=== PATIENT | female | born 1985 | race Caucasian/White ===

== ENCOUNTER 2020-01-31 16:44 | Inpatient (IN) | payer OTHER, SELFPAY ==
[2020-01-31 18:34] VITALS: BP 157/88; PULSE 110; RESP 17; TEMP 37.4; O2SAT 97; BMI 27.3
--- NOTE | 2020-01-31 18:39 | PC.NURSE ---
Pt states she has HX of hypertension and was taking lisinopril but had kidney problems and the med was discontinued. Her BP is slightly elevated on arrival.
--- NOTE | 2020-01-31 18:51 | ED_ITS ---
HPI - Female Genitourinary General Chief complaint: Urogenital-Female Stated complaint: fever Time Seen by Provider: 01/31/20 18:51 Source: patient Mode of arrival: ambulatory Limitations: no limitations History of Present Illness HPI Narrative: 35-year-old female with past medical history of sepsis, pyelonephritis, presents with 3 days of UTI symptoms, bilateral lower back pain, fevers, and chills. She does not described suprapubic pain, chest pain or pressure, palpitations, shortness breath, abdominal distention, edema, lightheadedness or weakness. MD elicited complaint: dysuria, UTI , back pain and flank pain Pertinent past history: recurrent UTIs and pyelonephritis Onset (ago): day(s) ( Three) Location of symptoms: LLQ, RLQ, low back and flank Severity: similar to previous episodes Severity scale (1-10): 10 Quality of pain: dull, burning and aching Consistency: constant Vaginal discharge: none Vaginal bleeding: none Urinary symptoms: Dysuria, Foul Smelling Urine, Difficulty Urinating and Flank Pain Exacerbating factors: urination and movement Relieving factors: none Associated symptoms: abdominal pain, loss of appetite, fever, chills and nausea Treatment prior to arrival: acetaminophen Sexual activity: No Patient : No Related Data Home Medications Medication Instructions Recorded Confirmed sertraline 100 tab DAILY 01/31/20 01/31/20 trazodone 25 mg PO BEDTIME 01/31/20 01/31/20 Allergies Allergy/AdvReac Type Severity Reaction Status Date / Time No Known Allergies Allergy Verified 01/31/20 19:48 Review of Systems Review of Systems: Constitutional: positive Fever, positive Chills ENT/Mouth: No sore throat Eyes: No Eye Pain, No Swelling, No Redness Cardiovascular: No Chest Pain, No SOB Respiratory: No Cough, No Sputum, No Wheezing Gastrointestinal: positive Nausea, no Vomiting, No Diarrhea, positive abdominal pain Genitourinary: positive Dysuria, positive urinary frequency, positive Hematuria, positive Flank Pain, positive hesitancy Musculoskeletal: No joint pain, No Myalgias Skin: No Skin Lesions, No rash Neuro: No Weakness, No Numbness, No Headache Psych: No Anxiety/Panic, No Depression Heme/Lymph: No Bruising, No Lymphadenopathy Endocrine: No Polyuria, No Polydipsia Yes all other systems are reviewed and are negative PMFSH Past Medical History Attestation statement: The following information was validated with the patient. Medical History HTN (hypertension) Spina bifida Social History Social History Alcohol intake: never Smoking Status: Current every day smoker Smoked in Last 30 Days: No Use of substances other than those prescribed or required for medical reasons: No Advance Directives: No Advance Directives Information Provided: Yes Physical Exam Vital Signs: Vital Signs: Last Vital Signs Temp 102.7 F H 01/31/20 23:56 Pulse 114 H 01/31/20 23:56 Resp 23 H 01/31/20 23:56 BP 113/62 01/31/20 23:56 Pulse Ox 96 01/31/20 23:56 Body Mass Index 27.3 Appearance: Alert. Oriented X3. moderate distress. febrile Head: Normal external exam. Normocephalic. Atraumatic. Eyes: PERRLA. EOMI. Conjunctiva and sclera normal. Eyelids normal. ENT: TM's Normal. Pharynx normal. Uvula midline. dry mucous membranes. No trismus noted. No drooling noted. No muffled voice noted. Neck: Normal inspection. Neck supple. No adenopathy. no meningeal signs CVS: tachycardic. Heart sound normal. No murmurs noted. Pulses equal to all extremities. Respiratory: No respiratory distress. Painless inspiration. Breath sounds normal. No wheezes/rales/rhonchi noted. Chest nontender. No accessory muscle usage noted or decreased air movement noted. Abdomen: Soft and diffusely tender, CVA tenderness bilaterally. Bowel sounds normal in all 4 quadrants. No distention noted. No organomegaly noted. No visible injury noted. Back: CVA tenderness bilaterally. Full range of motion noted. Skin: Skin warm and mild diaphoresis. Normal skin color. Normal skin turgor. No rashes/lesions/lacerations noted. Extremities: No lower extremity edema. Extremities exhibit normal range of motion. Extremities nontender. Neuro: cranial nerves 2-12 intact, no focal neural deficits, strength 5/5 to all extremities, No motor deficit. No sensory deficit. Reflexes normal. Course Course Course Narrative: 35-year-old female with past medical history of sepsis with pyelonephritis presents with urinary symptoms and lower back pain consistent with prior admission for pyelonephritis. At this time patient fits sepsis protocol, we will order fluid resuscitation at 30 mg/kg, CBC, Chem 7, lactic and cultures. Order for ceftriaxone, and COVID-19 testing. Pain management with morphine. urinalysis positive for UTI, CT scan of abdomen negative for pyelonephritis, shows decreased liver attenuation suggesting hepatic steatosis, and do few sleep thickened bladder wall consistent with cystitis. EKG is sinus tach. Discussion with hospitalist at 9:45 p.m., plan of care is to admit for UTI sepsis. Request by hospitalist add Maureen stock. RN updated this NDT INSPECTOR at midnight that patient has elevated temperature, order for Tylenol, 3rd L of normal saline and was given morphine approximately 30 minutes prior to this for pain management. MDM - Female Genitourinary MDM Narrative Medical decision making narrative: Pyelonephritis, hydronephrosis, sepsis, renal colic Differential Diagnosis Differential diagnosis: Likely urinary tract infection, ovarian cyst, ruptured ovarian cyst and cystitis Medical Records Attestation: I reviewed the patient's medical records. Lab Data Attestation: I reviewed the patient's lab results. Result diagrams: 01/31/20 19:12 01/31/20 19:12 Labs: Lab Results 01/31/20 01/31/20 01/31/20 Range/Units 19:06 19:12 19:12 WBC 13.6 H (4.8-10.8) X10*3/uL RBC 3.68 L (4.20-5.50) X10*6/uL Hgb 13.7 (12.0-16.0) g/dl Hct 38.7 (37-47) % MCV 105.2 H (80-98) fL MCH 37.2 H (27.0-33.0) pg MCHC 35.4 H (31.0-35.0) g/dl RDW 11.3 (11.0-16.0) % Plt Count 165 (160-400) X10*3/uL MPV 9.6 (9.4-12.3) fL Immature Gran % (Auto) 0.4 (0.0-0.4) % Neut % (Auto) 81.8 H (45-73) % Lymph % (Auto) 3.7 L (20-40) % [place] % (Auto) 13.9 H (2-11) % Eos % (Auto) 0.1 (0-4) % Baso % (Auto) 0.1 (0-2) % Lymph # (Auto) 0.5 L (1.2-4.9) X10*3/uL [place] # (Auto) 1.9 H (0.1-1.2) X10*3/uL Eos # (Auto) 0.0 (0.0-0.4) X10*3/uL Baso # (Auto) 0.0 (0.0-0.2) X10*3/uL Abs Immat Gran (auto) 0.06 H (0.00-0.03) X10*3/uL Absolute Neuts (auto) 11.1 H (2.0-8.3) X10*3/uL Absolute Nucleated RBC 0.000 (0.0-0.012) X10*3/uL Nucleated RBC % (auto) 0.0 (0.0-0.2) /100WBC Smear Tech's Comments VERIFIED PT 14.0 H (10.8-13.0) SEC INR 1.2 H (0.9-1.1) APTT 35.4 (24.1-38.0) SEC Sodium (135-145) mmol/L Potassium (3.3-5.1) mmol/l Chloride (96-108) mmol/L Carbon Dioxide (22-29) mmol/L Anion Gap (12-20) BUN (9-16) mg/dL Creatinine (0.5-1.4) mg/dL Estim Creat Clear Calc Estimated GFR Random Glucose (60-115) mg/dL Lactic Acid (0.5-2.0) mmol/L Calcium (8.4-10.2) mg/dL Magnesium (1.6-2.6) mg/dL Total Bilirubin (0.0-1.0) mg/dL Direct Bilirubin (0.0-0.5) mg/dL AST (5-31) U/L ALT (0-31) U/L Alkaline Phosphatase (39-117) U/L Total Protein (6.5-8.0) g/dL Albumin (3.5-5.0) g/dL Lipase (8-78) U/L Urine Color YELLOW Urine Appearance HAZY Urine pH 5.5 (5.0-8.0) Ur Specific [place] 1.020 (1.005-1.025) Urine Protein 2+ H (NEG-TRACE) MG/DL Urine Glucose (UA) NEG (NEG) MG/DL Urine Ketones 5 (NEG) MG/DL Urine Blood 1+ H (NEG) Urine Nitrite POS H (NEG) Ur Leukocyte Esterase 1+ H (NEG) Urine RBC 1-4 (0) /HPF Urine WBC 76-150 H (0-4) /HPF Ur Squamous Epith Cells 1+ /LPF Urine Bacteria 4+ /LPF Urine Test NEGATIVE (NEGATIVE) Coronavirus (PCR) (Negative) Influenza Type A (PCR) (Negative) Influenza Type B (PCR) (Negative) RSV RNA Qual (PCR) (Negative) 01/31/20 01/31/20 01/31/20 Range/Units 19:12 19:12 19:12 WBC (4.8-10.8) X10*3/uL RBC (4.20-5.50) X10*6/uL Hgb (12.0-16.0) g/dl Hct (37-47) % MCV (80-98) fL MCH (27.0-33.0) pg MCHC (31.0-35.0) g/dl RDW (11.0-16.0) % Plt Count (160-400) X10*3/uL MPV (9.4-12.3) fL Immature Gran % (Auto) (0.0-0.4) % Neut % (Auto) (45-73) % Lymph % (Auto) (20-40) % [place] % (Auto) (2-11) % Eos % (Auto) (0-4) % Baso % (Auto) (0-2) % Lymph # (Auto) (1.2-4.9) X10*3/uL [place] # (Auto) (0.1-1.2) X10*3/uL Eos # (Auto) (0.0-0.4) X10*3/uL Baso # (Auto) (0.0-0.2) X10*3/uL Abs Immat Gran (auto) (0.00-0.03) X10*3/uL Absolute Neuts (auto) (2.0-8.3) X10*3/uL Absolute Nucleated RBC (0.0-0.012) X10*3/uL Nucleated RBC % (auto) (0.0-0.2) /100WBC Smear Tech's Comments PT (10.8-13.0) SEC INR (0.9-1.1) APTT (24.1-38.0) SEC Sodium 131 L (135-145) mmol/L Potassium 3.3 (3.3-5.1) mmol/l Chloride 93 L (96-108) mmol/L Carbon Dioxide 23 (22-29) mmol/L Anion Gap 18 (12-20) BUN 8 L (9-16) mg/dL Creatinine 0.65 (0.5-1.4) mg/dL Estim Creat Clear Calc 98.5 Estimated GFR > 60 Random Glucose 118 H (60-115) mg/dL Lactic Acid 0.9 (0.5-2.0) mmol/L Calcium 8.0 L (8.4-10.2) mg/dL Magnesium 1.6 (1.6-2.6) mg/dL Total Bilirubin 0.6 (0.0-1.0) mg/dL Direct Bilirubin 0.3 (0.0-0.5) mg/dL AST 42 H (5-31) U/L ALT 27 (0-31) U/L Alkaline Phosphatase 83 (39-117) U/L Total Protein 7.1 (6.5-8.0) g/dL Albumin 3.9 (3.5-5.0) g/dL Lipase 29 (8-78) U/L Urine Color Urine Appearance Urine pH (5.0-8.0) Ur Specific [place] (1.005-1.025) Urine Protein (NEG-TRACE) MG/DL Urine Glucose (UA) (NEG) MG/DL Urine Ketones (NEG) MG/DL Urine Blood (NEG) Urine Nitrite (NEG) Ur Leukocyte Esterase (NEG) Urine RBC (0) /HPF Urine WBC (0-4) /HPF Ur Squamous Epith Cells /LPF Urine Bacteria /LPF Urine Test (NEGATIVE) Coronavirus (PCR) (Negative) Influenza Type A (PCR) (Negative) Influenza Type B (PCR) (Negative) RSV RNA Qual (PCR) (Negative) 01/31/20 Range/Units 20:52 WBC (4.8-10.8) X10*3/uL RBC (4.20-5.50) X10*6/uL Hgb (12.0-16.0) g/dl Hct (37-47) % MCV (80-98) fL MCH (27.0-33.0) pg MCHC (31.0-35.0) g/dl RDW (11.0-16.0) % Plt Count (160-400) X10*3/uL MPV (9.4-12.3) fL Immature Gran % (Auto) (0.0-0.4) % Neut % (Auto) (45-73) % Lymph % (Auto) (20-40) % [place] % (Auto) (2-11) % Eos % (Auto) (0-4) % Baso % (Auto) (0-2) % Lymph # (Auto) (1.2-4.9) X10*3/uL [place] # (Auto) (0.1-1.2) X10*3/uL Eos # (Auto) (0.0-0.4) X10*3/uL Baso # (Auto) (0.0-0.2) X10*3/uL Abs Immat Gran (auto) (0.00-0.03) X10*3/uL Absolute Neuts (auto) (2.0-8.3) X10*3/uL Absolute Nucleated RBC (0.0-0.012) X10*3/uL Nucleated RBC % (auto) (0.0-0.2) /100WBC Smear Tech's Comments PT (10.8-13.0) SEC INR (0.9-1.1) APTT (24.1-38.0) SEC Sodium (135-145) mmol/L Potassium (3.3-5.1) mmol/l Chloride (96-108) mmol/L Carbon Dioxide (22-29) mmol/L Anion Gap (12-20) BUN (9-16) mg/dL Creatinine (0.5-1.4) mg/dL Estim Creat Clear Calc Estimated GFR Random Glucose (60-115) mg/dL Lactic Acid (0.5-2.0) mmol/L Calcium (8.4-10.2) mg/dL Magnesium (1.6-2.6) mg/dL Total Bilirubin (0.0-1.0) mg/dL Direct Bilirubin (0.0-0.5) mg/dL AST (5-31) U/L ALT (0-31) U/L Alkaline Phosphatase (39-117) U/L Total Protein (6.5-8.0) g/dL Albumin (3.5-5.0) g/dL Lipase (8-78) U/L Urine Color Urine Appearance Urine pH (5.0-8.0) Ur Specific [place] (1.005-1.025) Urine Protein (NEG-TRACE) MG/DL Urine Glucose (UA) (NEG) MG/DL Urine Ketones (NEG) MG/DL Urine Blood (NEG) Urine Nitrite (NEG) Ur Leukocyte Esterase (NEG) Urine RBC (0) /HPF Urine WBC (0-4) /HPF Ur Squamous Epith Cells /LPF Urine Bacteria /LPF Urine Test (NEGATIVE) Coronavirus (PCR) NEGATIVE (Negative) Influenza Type A (PCR) NEGATIVE (Negative) Influenza Type B (PCR) NEGATIVE (Negative) RSV RNA Qual (PCR) NEGATIVE (Negative) Imaging Data CT scan - abdomen: Attestation: I personally reviewed and interpreted this imaging study as follows: Radiologist's impression: EXAMINATION: CT ABDOMEN AND PELVIS WITHOUT CONTRAST CLINICAL INFORMATION: 35-year-old female with flank pain COMPARISON: CT abdomen pelvis 10/03/2019 TECHNIQUE: Multidetector volumetric imaging was performed from the superior aspect of the liver through the pubic symphysis. Sagittal and coronal reformatted images were obtained on the technologist's workstation. This CT examination was performed using dose optimization techniques as appropriate, variously including the following: *Automated exposure control *Adjustment of mA and/or kV according to patient size (this includes techniques or standardized protocols for targeted exams where dose is matched to indication/reason for exam; i.e. extremities or head) *Use of iterative reconstruction technique DLP: 432 mGy-cm FINDINGS: Visualized lung bases are well aerated. The liver is normal in size but demonstrates diffusely decreased attenuation. The gallbladder is normal in appearance. The pancreas is normal in appearance. 2.5 cm cyst within the posterior spleen is stable. The adrenal glands are unremarkable. Symmetrically sized kidneys. No renal calculi or hydronephrosis bilaterally. Normal caliber loops of small and large bowel. The appendix is not clearly visualized, however, there is no focal inflammatory stranding within the right lower quadrant. Nonaneurysmal abdominal aorta. The bladder is relatively decompressed and again demonstrated diffusely thick-walled. Unremarkable CT appearance of the uterus. No gross free pelvic fluid. No inguinal lymphadenopathy. No acute osseous abnormality. Congenital abnormality of the sacrum. CT/CT abdomen pelvis wo con IMPRESSION: 1. No renal calculi or hydronephrosis bilaterally. 2. Diffusely decreased liver attenuation suggesting hepatic steatosis. Correlation with liver enzymes recommended. 3. Similar appearance of diffusely thick-walled bladder. Cystitis is within the differential. ECG Data Attestation: I personally reviewed and interpreted this ECG as follows: ECG interpretation date: 01/31/20 ECG interpretation time: 19:12 Interpretation: Vent. Rate : 104 BPM Atrial Rate : 104 BPM P-R Int : 140 ms QRS Dur : 076 ms QT Int : 360 ms P-R-T Axes : 002 068 -02 degrees QTc Int : 473 ms Sinus tachycardia Nonspecific T wave abnormality Abnormal ECG When compared with ECG of 03-OCT-2019 17:32, Nonspecific T wave abnormality now evident in Inferior leads T wave inversion now evident in Anterior leads Critical Care Time Critical Care Time Critical Care Time: Yes Total Critical Care Time: 65 Attestation: I have personally provided critical care time exclusive of time spent on separately billable procedures. Time includes review of laboratory data, radiology results, discussion with consultants, and monitoring for potential decompensation. Interventions were performed as documented. Discharge Plan Discharge Clinical Impression: Urinary tract infection, Sepsis Patient Disposition: Admitted As Inpatient Prescriptions: No Action trazodone 50 mg tablet 25 mg PO BEDTIME RF: 0 sertraline 100 mg tablet 100 tab DAILY RF: 0
[2020-01-31 19:23] LABS: Basophils Percent Auto 0.1 % (0-2); Eosinophils Percent Auto 0.1 % (0-4); Hematocrit 38.7 % (37-47); Hemoglobin 13.7 g/dl (12.0-16.0); Imm Gran Abs Auto 0.06 X10*3/uL (0.00-0.03); Imm Gran Pct Auto 0.4 % (0.0-0.4); Lymphocytes Absolute Auto 0.5 X10*3/uL (1.2-4.9); Lymphocytes Percent Auto 3.7 % (20-40); MANUAL DIFF FLAG SCAN; Mean Corpuscular HGB Conc 35.4 g/dl (31.0-35.0); Mean Corpuscular Hemoglobin 37.2 pg (27.0-33.0); Mean Corpuscular Volume 105.2 fL (80-98); Mean Platelet Volume 9.6 fL (9.4-12.3); Monocytes Absolute Auto 1.9 X10*3/uL (0.1-1.2); Monocytes Percent Auto 13.9 % (2-11); Neutrophils Absolute Auto 11.1 X10*3/uL (2.0-8.3); Neutrophils Percent Auto 81.8 % (45-73); Platelet Count 165 X10*3/uL (160-400); Red Blood Count 3.68 X10*6/uL (4.20-5.50); Red Cell Distribution Width 11.3 % (11.0-16.0); SCAN SMEAR FLAG 1; White Blood Count 13.6 X10*3/uL (4.8-10.8)
[2020-01-31 19:26] LABS: Glucose Urine UA NEG (NEG); Leukocyte Esterase Urine 1+ (NEG); Nitrite Urine POS (NEG); PH 5.5 (5.0-8.0); Urine Blood 1+ (NEG); Urine Ketones 5 MG/DL (NEG); Urine Protein 2+ MG/DL (NEG-TRACE)
[2020-01-31 19:29] LABS: Appearance Urine HAZY; Color Urine YELLOW; UPreg QC Valid YES; Urine Pregnancy NEGATIVE (NEGATIVE)
[2020-01-31 19:31] LABS: INTERNATIONAL NORM RATIO 1.2 (0.9-1.1)
[2020-01-31 19:33] LABS: Bacteria Urine 4+ /LPF; Squamous Epithelial Cell Urine 1+ /LPF
[2020-01-31 19:34] LABS: Partial Thromboplastin Time 35.4 SEC (24.1-38.0)
[2020-01-31] MEDS: 0.9 % Sodium Chloride 1,000 ML 999 ML IVCONT ×2 (19:35)
[2020-01-31] MEDS: ondansetron HCL 4 MG/2 ML VIAL IVPUSH (19:35)
[2020-01-31] MEDS: Morphine Sulfate 4 MG/ML CARTRIDGE IVPUSH ×2 (19:35→22:00)
[2020-01-31 19:39] LABS: Lactic Acid 0.9 mmol/L (0.5-2.0)
[2020-01-31] MEDS: cefTRIAXone sodium 1 GM in 0.9 % Sodium Chloride 50 ML IV (19:42)
[2020-01-31 19:43] LABS: SLIDE REVIEW VERIFIED
[2020-01-31 19:44] LABS: Alanine Aminotransferase 27 U/L (0-31); Albumin Level 3.9 g/dL (3.5-5.0); Alkaline Phosphatase 83 U/L (39-117); Anion Gap 18 (12-20); Aspartate Amino Transferase 42 U/L (5-31); Bilirubin Direct 0.3 mg/dL (0.0-0.5); Bilirubin Total 0.6 mg/dL (0.0-1.0); Blood Urea Nitrogen 8 mg/dL (9-16); Carbon Dioxide 23 mmol/L (22-29); Chloride 93 mmol/L (96-108); Creatinine Clr Calc Pharmacy 98.5; Estimated Glomerular Filt Rate > 60; Glucose Random 118 mg/dL (60-115); Lipase 29 U/L (8-78); Magnesium 1.6 mg/dL (1.6-2.6); Potassium 3.3 mmol/l (3.3-5.1); Sodium 131 mmol/L (135-145); Total Protein 7.1 g/dL (6.5-8.0)
[2020-01-31 19:45] VITALS: BP 129/78; PULSE 99; RESP 18; TEMP 37.7; O2SAT 98
[2020-01-31 20:52] VITALS: BP 148/88; PULSE 94; RESP 23; TEMP 36.9; O2SAT 98
[2020-01-31] MEDS: Piperacillin Sodium/Tazobactam 3.375 GM in 0.9 % Sodium Chloride 50 ML IV (21:30)
[2020-01-31 21:35] LABS: Influenza A PCR NEGATIVE (Negative); Influenza B PCR NEGATIVE (Negative); Resp Syncy Virus RNA Qual PCR NEGATIVE (Negative); SARS COV2 PCR INHOUSE NEGATIVE (Negative)
[2020-01-31 22:00] VITALS: BP 143/87; PULSE 108; RESP 33; TEMP 37.7; O2SAT 96
[2020-01-31 23:56] VITALS: BP 113/62; PULSE 114; RESP 23; TEMP 39.3; O2SAT 96
[2020-02-01] VITALS (12 sets, daily range): BP systolic 107–137; BP diastolic 57–84; PULSE 64–109; RESP 14–29; TEMP 36.1–39.4; O2SAT 95–99
[2020-02-01] MEDS: Acetaminophen 325 MG TABLET 975 MG PO (00:28)
[2020-02-01] MEDS: 0.9 % Sodium Chloride 1,000 ML 999 ML IVCONT (00:29)
--- NOTE | 2020-02-01 04:01 | PC.NURSE ---
Pt has hx of Spina bifida. Pt states that she does self-catheterization. Self-catheterizaiton kit given at this time.
--- NOTE | 2020-02-01 04:03 | MHC.PIE ---
P: Febrile T=102.7 orally at midnight. I: ARUNA Najera made aware. 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 E: Temperature slowly coming down after med. At 0200, T=101.4, and at 0400 T=98.4 orally, Will continue to monitor.
--- NOTE | 2020-02-01 07:48 | PM.IMHP ---
History of Present Illness Date of Service: 02/01/20 Chief Complaint: R Flank This is a 34-year-old female with a history of spina bifida, frequent urinary tract infections, urinary retention, anxiety/depression who presents to the hospital with complaints of right flank pain and dysuria for the last 3-4 days. She also reports fevers and chills. She reports she tried to take some [id number] Tylenol at home but she remained feverish and her pain worsened so she presented to the emergency room. She denies any respiratory symptoms such as cough or shortness of breath. She denies any sick contacts, particularly anybody with COVID-19. She does endorse frequent urinary tract infections with her last hospitalization over the summer at [facility]. In the emergency room, patient was noted to be septic with fevers, tachycardia, tachypnea and leukocytosis. Her UA was consistent with a UTI. CT of the abdomen and pelvis did not show any renal stones but did show evidence of a thick wall bladder, consistent with possible cystitis. She was treated with IV fluids and IV antibiotics as well as antiemetics and pain medicine. Her symptoms improved but she remained persistently cardiac and febrile and as such she will be admitted for sepsis secondary to urinary tract infection/ Pyelo. Review of Systems Review of Systems: General - +fevers/chills/malaise HEENT - Prep denies blurred vision, denies headache, denies sore throat Cardiovascular - denies chest pain or palpitations, denies edema Respiratory - denies shortness of breath, coughing, wheezing Gastrointestinal - denies abdominal pain, nausea, vomiting, diarrhea - R Flank pain, +dysuria/urgency Musculoskeletal - denies back pain, denies hip pain, denies knee pain, denies shoulder pain Neurological - denies any focal weakness or numbness Skin, denies any bruising or redness Psychiatric - denies any suicidal ideation, hallucinations, homicidal ideation Endocrinology - denies intolerance to hot / cold temperatures [facility] Medical History (Updated 02/01/20 @ 08:02 by Catarino Mcghee MD) Anxiety and depression Spina bifida Urinary retention Pertinent family history: She denies any significant family history Surgical History (Updated 02/01/20 @ 08:04 by Catarino Mcghee MD) Previous back surgery Social History Alcohol intake: never Smoking Status: Current every day smoker Smoked in Last 30 Days: No Use of substances other than those prescribed or required for medical reasons: No Advance Directives: No Advance Directives Information Provided: Yes Meds Allergies Allergy/AdvReac Type Severity Reaction Status Date / Time No Known Allergies Allergy Verified 01/31/20 19:48 Home Medications Medication Instructions Recorded Confirmed Type sertraline 100 tab DAILY 01/31/20 01/31/20 History trazodone 25 mg PO BEDTIME 01/31/20 01/31/20 History Physical Exam Vital Signs and Narrative: Vital Signs: Last Vital Signs Temp 103 F H 02/01/20 07:44 Pulse 108 H 02/01/20 07:44 Resp 16 02/01/20 07:44 BP 129/74 02/01/20 07:44 Pulse Ox 98 02/01/20 06:00 Body Mass Index 27.3 Constitutional - Awake and Alert, No apparent distress Eyes - PERRLA, EOMI Cardiovascular - S1S2, RRR, No edema Respiratory - Normal lung expansion, Normal respiratory effort, No respiratory distress, CTA bilaterally Gastrointestinal - NT / ND; +BS; No rebound or guarding - bilateral CVA tenderness R>L Extremities - no calf tenderness bilaterally, no welling Musculoskeletal - Normal inspection, normal ROM Skin - Warm/Dry Neurological - Alert & oriented x3, No focal deficit Psychological - Appropriate affect Results Labs CBC and Chem 7: 01/31/20 19:12 01/31/20 19:12 Labs: Laboratory Results - last 24 hr 01/31/20 01/31/20 01/31/20 19:06 19:12 19:12 MCV 105.2 H MCH 37.2 H MCHC 35.4 H RDW 11.3 Plt Count 165 MPV 9.6 Immature Gran % (Auto) 0.4 Neut % (Auto) 81.8 H Lymph % (Auto) 3.7 L [place] % (Auto) 13.9 H Eos % (Auto) 0.1 Baso % (Auto) 0.1 Lymph # (Auto) 0.5 L [place] # (Auto) 1.9 H Eos # (Auto) 0.0 Baso # (Auto) 0.0 Abs Immat Gran (auto) 0.06 H Absolute Neuts (auto) 11.1 H Absolute Nucleated RBC 0.000 Nucleated RBC % (auto) 0.0 Smear Tech's Comments VERIFIED PT 14.0 H INR 1.2 H APTT 35.4 Anion Gap Estim Creat Clear Calc Estimated GFR Random Glucose Lactic Acid Calcium Magnesium Total Bilirubin Direct Bilirubin AST ALT Alkaline Phosphatase Total Protein Albumin Lipase Urine Color YELLOW Urine Appearance HAZY Urine pH 5.5 Ur Specific [place] 1.020 Urine Protein 2+ H Urine Glucose (UA) NEG Urine Ketones 5 Urine Blood 1+ H Urine Nitrite POS H Ur Leukocyte Esterase 1+ H Urine RBC 1-4 Urine WBC 76-150 H Ur Squamous Epith Cells 1+ Urine Bacteria 4+ Urine Test NEGATIVE Coronavirus (PCR) Influenza Type A (PCR) Influenza Type B (PCR) RSV RNA Qual (PCR) 01/31/20 01/31/20 01/31/20 19:12 19:12 19:12 MCV MCH MCHC RDW Plt Count MPV Immature Gran % (Auto) Neut % (Auto) Lymph % (Auto) [place] % (Auto) Eos % (Auto) Baso % (Auto) Lymph # (Auto) [place] # (Auto) Eos # (Auto) Baso # (Auto) Abs Immat Gran (auto) Absolute Neuts (auto) Absolute Nucleated RBC Nucleated RBC % (auto) Smear Tech's Comments PT INR APTT Anion Gap 18 Estim Creat Clear Calc 98.5 Estimated GFR > 60 Random Glucose 118 H Lactic Acid 0.9 Calcium 8.0 L Magnesium 1.6 Total Bilirubin 0.6 Direct Bilirubin 0.3 AST 42 H ALT 27 Alkaline Phosphatase 83 Total Protein 7.1 Albumin 3.9 Lipase 29 Urine Color Urine Appearance Urine pH Ur Specific [place] Urine Protein Urine Glucose (UA) Urine Ketones Urine Blood Urine Nitrite Ur Leukocyte Esterase Urine RBC Urine WBC Ur Squamous Epith Cells Urine Bacteria Urine Test Coronavirus (PCR) Influenza Type A (PCR) Influenza Type B (PCR) RSV RNA Qual (PCR) 01/31/20 20:52 MCV MCH MCHC RDW Plt Count MPV Immature Gran % (Auto) Neut % (Auto) Lymph % (Auto) [place] % (Auto) Eos % (Auto) Baso % (Auto) Lymph # (Auto) [place] # (Auto) Eos # (Auto) Baso # (Auto) Abs Immat Gran (auto) Absolute Neuts (auto) Absolute Nucleated RBC Nucleated RBC % (auto) Smear Tech's Comments PT INR APTT Anion Gap Estim Creat Clear Calc Estimated GFR Random Glucose Lactic Acid Calcium Magnesium Total Bilirubin Direct Bilirubin AST ALT Alkaline Phosphatase Total Protein Albumin Lipase Urine Color Urine Appearance Urine pH Ur Specific [place] Urine Protein Urine Glucose (UA) Urine Ketones Urine Blood Urine Nitrite Ur Leukocyte Esterase Urine RBC Urine WBC Ur Squamous Epith Cells Urine Bacteria Urine Test Coronavirus (PCR) NEGATIVE Influenza Type A (PCR) NEGATIVE Influenza Type B (PCR) NEGATIVE RSV RNA Qual (PCR) NEGATIVE Imaging Radiologist's Impressions: Impressions Abdomen/Pelvis CT 01/31/20 18:52 IMPRESSION: 1. No renal calculi or hydronephrosis bilaterally. 2. Diffusely decreased liver attenuation suggesting hepatic steatosis. Correlation with liver enzymes recommended. 3. Similar appearance of diffusely thick-walled bladder. Cystitis is within the differential. Assessment and Plan (1) Urinary tract infection: Qualifiers: Hematuria presence: with hematuria Urinary tract infection type: acute cystitis Qualified Code(s): N30.01 - Acute cystitis with hematuria Status: Acute (2) Sepsis: Qualifiers: Sepsis acute organ dysfunction status: unspecified Sepsis type: sepsis due to unspecified organism Qualified Code(s): A41.9 - Sepsis, unspecified organism Status: Acute this is a 35-year-old female with a history of frequent urinary tract infections, urinary retention, spinal bifida, anxiety /depression who presented hospital complaints of flank pain and fevers with associated urinary symptoms of due 3 to 4 days duration. Her workup in the emergency room is consistent with sepsis secondary to pyelonephritis 1. sepsis secondary to pyelonephritis /UTI No severe features IV ceftriaxone Follow-up blood and urine cultures IV fluids pain control 2. HypoNa mild, likely hypovoluemic IVF 3.Anxiety/depression Continue her home meds Full Code DVT pptx, low risk -- early ambulation/mechanical device
[2020-02-01] MEDS: Acetaminophen 325 MG TABLET 650 MG PO ×2 (08:00→19:25)
[2020-02-01] MEDS: Morphine Sulfate 4 MG/ML CARTRIDGE IVPUSH ×2 (08:05→14:44)
--- NOTE | 2020-02-01 08:08 | PC.NURSE ---
medicated as ordered for pain, drinking water, alert, aware of care plan
[2020-02-01] MEDS: Lactated Ringers 1,000 ML 100 ML IVCONT ×2 (08:28→20:25)
--- NOTE | 2020-02-01 09:33 | PC.NURSE ---
sleeping, nad, sr on monitor, called floor to give report
[2020-02-01] MEDS: Sertraline HCL 100 MG TABLET PO (11:31)
[2020-02-01] MEDS: 0.9 % Sodium Chloride Flush 3 ML SYRINGE IVFLUSH (11:31)
[2020-02-01] MEDS: ondansetron HCL 4 MG/2 ML VIAL IVPUSH (14:44)
[2020-02-01] MEDS: cefTRIAXone sodium 1 GM in 0.9 % Sodium Chloride 50 ML IV (19:16)
[2020-02-01] MEDS: traZODone HCL 25 MG HALFTAB PO (20:27)
[2020-02-02] VITALS (7 sets, daily range): BP systolic 109–140; BP diastolic 63–81; PULSE 62–81; RESP 16–18; TEMP 36.1–36.8; O2SAT 94–99
[2020-02-02] MEDS: Morphine Sulfate 4 MG/ML CARTRIDGE IVPUSH (00:15)
[2020-02-02] MEDS: 0.9 % Sodium Chloride Flush 3 ML SYRINGE IVFLUSH ×3 (07:07→20:49)
[2020-02-02 07:18] LABS: Basophils Percent Auto 0.2 % (0-2); Eosinophils Absolute Auto 0.1 X10*3/uL (0.0-0.4); Eosinophils Percent Auto 0.4 % (0-4); Hemoglobin 12.2 g/dl (12.0-16.0); Imm Gran Abs Auto 0.09 X10*3/uL (0.00-0.03); Imm Gran Pct Auto 0.7 % (0.0-0.4); Lymphocytes Absolute Auto 0.7 X10*3/uL (1.2-4.9); Lymphocytes Percent Auto 5.7 % (20-40); MANUAL DIFF FLAG SCAN; Mean Corpuscular HGB Conc 34.9 g/dl (31.0-35.0); Mean Corpuscular Hemoglobin 36.7 pg (27.0-33.0); Mean Corpuscular Volume 105.4 fL (80-98); Mean Platelet Volume 9.5 fL (9.4-12.3); Monocytes Absolute Auto 2.2 X10*3/uL (0.1-1.2); Monocytes Percent Auto 17.1 % (2-11); Neutrophils Absolute Auto 9.8 X10*3/uL (2.0-8.3); Neutrophils Percent Auto 75.9 % (45-73); Platelet Count 232 X10*3/uL (160-400); Red Blood Count 3.32 X10*6/uL (4.20-5.50); Red Cell Distribution Width 11.4 % (11.0-16.0); SCAN SMEAR FLAG 1; White Blood Count 12.8 X10*3/uL (4.8-10.8)
[2020-02-02 07:37] LABS: Anion Gap 11 (12-20); Carbon Dioxide 24 mmol/L (22-29); Chloride 99 mmol/L (96-108); Creatinine Clr Calc Pharmacy 128.1; Estimated Glomerular Filt Rate > 60; Glucose Random 95 mg/dL (60-115); Potassium 3.1 mmol/l (3.3-5.1); Sodium 131 mmol/L (135-145)
[2020-02-02 07:47] LABS: SLIDE REVIEW VERIFIED
[2020-02-02 08:02] LABS: Blood Urea Nitrogen 3 mg/dL (9-16); Calcium 7.9 mg/dL (8.4-10.2)
[2020-02-02] MEDS: Sertraline HCL 100 MG TABLET PO (08:40)
--- NOTE | 2020-02-02 09:39 | MHC.CM.PN ---
PATIENT LIVES WITH HER SPOUSE. SHE IS INDEPENDENT WITH ALL ADLS. NO DME OR VNA SERVICES. PATIENT IS EXPECTED TO RETURN HOME WITH NO SERVICES SHE EXPECTS THAT HER SPOUSE CAN PROVIDE TRANSPORT, AND IS AWARE THAT SHE CAN UTILIZE C SHUTTLE DURING THE WEEK. PATIENT WILL NEED A RETURN TO WORK NOTE.
--- NOTE | 2020-02-02 11:54 | P.PNIM_ITS ---
Subjective Subjective Date of Service: 02/02/20 Interval History: seen and examined feeling better today no flank pain, no abdominal pain reports diarrhea which she reports happens when shes on antibiotics ROS General - no fevers or chills Cardiovascular - no chest pain Respiratory - no shortness of breath or cough Abdominal- no abdominal pain, nausea, vomiting, +loose BM - flank pain resolved, dysuria resolved Physical Exam Vital Signs: Vital Signs: Last Vital Signs Temp 97.8 F 02/02/20 07:30 Pulse 62 02/02/20 07:30 Resp 16 02/02/20 07:30 BP 114/69 02/02/20 07:30 Pulse Ox 96 02/02/20 07:30 Body Mass Index 27.3 Constitutional - Awake and Alert, No apparent distress Eyes - PERRLA, EOMI Cardiovascular - S1S2, RRR, No edema Respiratory - Normal lung expansion, Normal respiratory effort, No respiratory distress, CTA bilaterally Gastrointestinal - NT / ND; +BS; No rebound or guarding - no cva tenderness b/l Extremities - no calf tenderness bilaterally, no welling Musculoskeletal - Normal inspection, normal ROM Skin - Warm/Dry Neurological - Alert & oriented x3, No focal deficit Psychological - Appropriate affect Objective Data Current Medications Generic Name Dose Route Start Last Admin Trade Name Freq PRN Reason Stop Dose Admin Acetaminophen 650 mg 02/01/20 10:48 02/01/20 19:25 Acetaminophen 325 Mg Tablet PO 650 mg Q6H PRN Administration Pain and Fever Ceftriaxone Sodium 1 gm/ 50 mls @ 100 mls/hr 02/01/20 19:00 02/01/20 20:25 Sodium Chloride IV Infused Q24H ARELY Infusion Morphine Sulfate 4 mg 02/01/20 14:21 02/02/20 00:15 Morphine Sulfate 4 Mg/Ml Cartridge IVPUSH 4 mg Q6H PRN Administration Pain, Severe (Pain Scale 7-10) Ondansetron HCl 4 mg 02/01/20 14:21 02/01/20 14:44 Ondansetron Hcl 4 Mg/2 Ml Vial IVPUSH 4 mg Q8H PRN Administration Nausea and Vomiting Sertraline HCl 100 mg 02/01/20 11:00 02/02/20 08:40 Sertraline Hcl 100 Mg Tablet PO 100 mg DAILY ARELY Administration Sodium Chloride 3 ml 02/01/20 10:48 02/02/20 07:07 0.9 % Sodium Chloride Flush 3 Ml Syringe IVFLUSH 3 ml QSHIFT ARELY Administration Trazodone HCl 25 mg 02/01/20 21:00 02/01/20 20:27 Trazodone Hcl 25 Mg Halftab PO 25 mg BEDTIME ARELY Administration Labs CBC & Chem 7: 02/02/20 06:45 02/02/20 06:45 Microbiology Microbiology Results: Microbiology 01/31/20 19:30 Urine Catheterized - Lambert Catheter Urine Culture - P reliminary Gram negative jenelle 01/31/20 19:44 Blood - Venous Blood Culture - Preliminary No growth after 24 hours. 01/31/20 19:12 Blood - Venous Blood Culture - Preliminary No growth after 24 hours. Assessment and Plan (1) Urinary tract infection: Status: Acute (2) Sepsis: Status: Acute Assessment and Plan: this is a 35-year-old female with a history of frequent urinary tract infections, urinary retention, spinal bifida, anxiety /depression who presented hospital complaints of flank pain and fevers with associated urinary symptoms of due 3 to 4 days duration. Her workup in the emergency room is consistent with sepsis secondary to pyelonephritis 1. Sepsis secondary to pyelonephritis /UTI sepsis improving blood cx negative at 24 hours urine growing gram negatives continue rocephin 2. HypoNa stable at 131 3. HypoK mild replete with PO 60meq 4. Urinary retention chronic, she reports self catherization home she needs to f/u with a urologist as outpatient may need chronic supression antibiotics given recurrent UTI 5.Anxiety/depression Continue her home meds Full Code DVT pptx, lovenox
[2020-02-02] MEDS: Potassium Chloride ER 20 MEQ TAB.ER.PRT 60 MEQ PO (12:22)
[2020-02-02] MEDS: Enoxaparin Sodium 40 MG/0.4 ML SYRINGE SUBCUT (12:22)
[2020-02-02] MEDS: Acetaminophen 325 MG TABLET 650 MG PO (18:03)
[2020-02-02] MEDS: cefTRIAXone sodium 1 GM in 0.9 % Sodium Chloride 50 ML IV (19:18)
[2020-02-02] MEDS: traZODone HCL 25 MG HALFTAB PO (20:48)
[2020-02-03] MEDS: Morphine Sulfate 4 MG/ML CARTRIDGE IVPUSH (01:44)
[2020-02-03 03:11] VITALS: BP 136/73; PULSE 75; RESP 16; TEMP 37.1; O2SAT 98
[2020-02-03 06:51] LABS: Hematocrit 35.6 % (37-47); Hemoglobin 12.2 g/dl (12.0-16.0); Mean Corpuscular HGB Conc 34.3 g/dl (31.0-35.0); Mean Corpuscular Hemoglobin 36.4 pg (27.0-33.0); Mean Corpuscular Volume 106.3 fL (80-98); Mean Platelet Volume 9.3 fL (9.4-12.3); Platelet Count 291 X10*3/uL (160-400); Red Blood Count 3.35 X10*6/uL (4.20-5.50); Red Cell Distribution Width 11.5 % (11.0-16.0); White Blood Count 11.4 X10*3/uL (4.8-10.8)
[2020-02-03 07:18] LABS: Anion Gap 13 (12-20); Blood Urea Nitrogen 3 mg/dL (9-16); Calcium 7.8 mg/dL (8.4-10.2); Carbon Dioxide 21 mmol/L (22-29); Chloride 100 mmol/L (96-108); Creatinine Clr Calc Pharmacy 139.2; Estimated Glomerular Filt Rate > 60; Glucose Random 92 mg/dL (60-115); Potassium 3.3 mmol/l (3.3-5.1); Sodium 131 mmol/L (135-145)
[2020-02-03 08:00] VITALS: BP 128/72; PULSE 86; RESP 16; TEMP 36.4; O2SAT 99
[2020-02-03] MEDS: 0.9 % Sodium Chloride Flush 3 ML SYRINGE IVFLUSH (08:21)
[2020-02-03] MEDS: Sertraline HCL 100 MG TABLET PO (08:21)
--- NOTE | 2020-02-03 09:42 | P.DS_ITS ---
DS: Providers Provider Date of admission: 02/01/20 07:48 Primary care physician: Di Martinez MD DS: Diagnosis Discharge Diagnosis (1) Urinary tract infection: Status: Acute (2) Sepsis: Status: Acute (3) Urinary retention: Status: Acute (4) Hyponatremia: Status: Acute DS: Medications Discharge Medications Home Medications: Home Medications Medication Instructions Recorded Confirmed trazodone 25 mg PO BEDTIME 01/31/20 01/31/20 Previous Rx's Medication Instructions Recorded cefuroxime axetil 500 mg PO Q12H 10 Days #20 tab 02/03/20 sertraline 100 mg PO DAILY #0 tab 02/03/20 DS: Summary Hospital Course Hospital Course: HPI: This is a 34-year-old female with a history of spina bifida, frequent urinary tract infections, urinary retention, anxiety/depression who presents to the hospital with complaints of right flank pain and dysuria for the last 3-4 days. She also reports fevers and chills. She reports she tried to take some [id number] Tylenol at home but she remained feverish and her pain worsened so she presented to the emergency room. She denies any respiratory symptoms such as cough or shortness of breath. She denies any sick contacts, particularly anybody with COVID-19. She does endorse frequent urinary tract infections with her last hospitalization over the summer at [facility]. In the emergency room, patient was noted to be septic with fevers, tac hycardia, tachypnea and leukocytosis. Her UA was consistent with a UTI. CT of the abdomen and pelvis did not show any renal stones but did show evidence of a thick wall bladder, consistent with possible cystitis. She was treated with IV fluids and IV antibiotics as well as antiemetics and pain medicine. Her symptoms improved but she remained persistently cardiac and febrile and as such she will be admitted for sepsis secondary to urinary tract infection/ Pyelo. Hospital Course: Patient presented with sepsis secondary to pyelonephritis. She was started on IV ceftriaxone and IV fluids. Her symptoms over the course of 48 hours improved. Her urine culture returned positive for E coli which was sensitive to ceftriaxone. She will be discharged home with oral cefuroxime 500 mg twice daily. Blood cultures are negative at the time of discharge. Due to her chronic urinary retention, she is advised to follow-up with her urologist for consideration of chronic suppressive antibiotics. Time Spent with Patient Time attestation: Total time spent providing and/or coordinating discharge services: Physical Exam Vital Signs: Vital Signs: Last Vital Signs Temp 97.5 F 02/03/20 08:00 Pulse 86 02/03/20 08:00 Resp 16 02/03/20 08:00 BP 128/72 02/03/20 08:00 Pulse Ox 99 02/03/20 08:00 Body Mass Index 27.3 General - no acute distress, appears comfortable Cardiovascular - regular rate and rhythm, S1-S2 Lungs - normal respiratory effort, clear to auscultation bilaterally, no wheezing Abdomen - soft, nontender, no rebound or guarding Extremities - no edema bilaterally Neuro - awake and alert, no focal deficits DS: Data Data Completed and Pending Labs on day of discharge: Laboratory Last Values WBC 11.4 X10*3/uL (4.8-10.8) H 02/03/20 06:07 RBC 3.35 X10*6/uL (4.20-5.50) L 02/03/20 06:07 Hgb 12.2 g/dl (12.0-16.0) 02/03/20 06:07 Hct 35.6 % (37-47) L 02/03/20 06:07 MCV 106.3 fL (80-98) H 02/03/20 06:07 MCH 36.4 pg (27.0-33.0) H 02/03/20 06:07 MCHC 34.3 g/dl (31.0-35.0) 02/03/20 06:07 RDW 11.5 % (11.0-16.0) 02/03/20 06:07 Plt Count 291 X10*3/uL (160-400) D 02/03/20 06:07 MPV 9.3 fL (9.4-12.3) L 02/03/20 06:07 Immature Gran % (Auto) 0.7 % (0.0-0.4) H 02/02/20 06:45 Neut % (Auto) 75.9 % (45-73) H 02/02/20 06:45 Lymph % (Auto) 5.7 % (20-40) L 02/02/20 06:45 [place] % (Auto) 17.1 % (2-11) H 02/02/20 06:45 Eos % (Auto) 0.4 % (0-4) 02/02/20 06:45 Baso % (Auto) 0.2 % (0-2) 02/02/20 06:45 Lymph # (Auto) 0.7 X10*3/uL (1.2-4.9) L 02/02/20 06:45 [place] # (Auto) 2.2 X10*3/uL (0.1-1.2) H 02/02/20 06:45 Eos # (Auto) 0.1 X10*3/uL (0.0-0.4) 02/02/20 06:45 Baso # (Auto) 0.0 X10*3/uL (0.0-0.2) 02/02/20 06:45 Abs Immat Gran (auto) 0.09 X10*3/uL (0.00-0.03) H 02/02/20 06:45 Absolute Neuts (auto) 9.8 X10*3/uL (2.0-8.3) H 02/02/20 06:45 Absolute Nucleated RBC 0.000 X10*3/uL (0.0-0.012) 02/03/20 06:07 Nucleated RBC % (auto) 0.0 /100WBC (0.0-0.2) 02/03/20 06:07 Smear Tech's Comments VERIFIED 02/02/20 06:45 PT 14.0 SEC (10.8-13.0) H 01/31/20 19:12 INR 1.2 (0.9-1.1) H 01/31/20 19:12 APTT 35.4 SEC (24.1-38.0) 01/31/20 19:12 Sodium 131 mmol/L (135-145) L 02/03/20 06:07 Potassium 3.3 mmol/l (3.3-5.1) 02/03/20 06:07 Chloride 100 mmol/L (96-108) 02/03/20 06:07 Carbon Dioxide 21 mmol/L (22-29) L 02/03/20 06:07 Anion Gap 13 (12-20) 02/03/20 06:07 BUN 3 mg/dL (9-16) L 02/03/20 06:07 Creatinine 0.46 mg/dL (0.5-1.4) L 02/03/20 06:07 Estim Creat Clear Calc 139.2 02/03/20 06:07 Estimated GFR > 60 02/03/20 06:07 Random Glucose 92 mg/dL (60-115) 02/03/20 06:07 Lactic Acid 0.9 mmol/L (0.5-2.0) 01/31/20 19:12 Calcium 7.8 mg/dL (8.4-10.2) L 02/03/20 06:07 Magnesium 1.6 mg/dL (1.6-2.6) 01/31/20 19:12 Total Bilirubin 0.6 mg/dL (0.0-1.0) 01/31/20 19:12 Direct Bilirubin 0.3 mg/dL (0.0-0.5) 01/31/20 19:12 AST 42 U/L (5-31) H 01/31/20 19:12 ALT 27 U/L (0-31) 01/31/20 19:12 Alkaline Phosphatase 83 U/L (39-117) 01/31/20 19:12 Total Protein 7.1 g/dL (6.5-8.0) 01/31/20 19:12 Albumin 3.9 g/dL (3.5-5.0) 01/31/20 19:12 Lipase 29 U/L (8-78) 01/31/20 19:12 Urine Color YELLOW 01/31/20 19:06 Urine Appearance HAZY 01/31/20 19:06 Urine pH 5.5 (5.0-8.0) 01/31/20 19:06 Ur Specific [place] 1.020 (1.005-1.025) 01/31/20 19:06 Urine Protein 2+ MG/DL (NEG-TRACE) H 01/31/20 19:06 Urine Glucose (UA) NEG MG/DL (NEG) 01/31/20 19:06 Urine Ketones 5 MG/DL (NEG) 01/31/20 19:06 Urine Blood 1+ (NEG) H 01/31/20 19:06 Urine Nitrite POS (NEG) H 01/31/20 19:06 Ur Leukocyte Esterase 1+ (NEG) H 01/31/20 19:06 Urine RBC 1-4 /HPF (0) 01/31/20 19:06 Urine WBC 76-150 /HPF (0-4) H 01/31/20 19:06 Ur Squamous Epith Cells 1+ /LPF 01/31/20 19:06 Urine Bacteria 4+ /LPF 01/31/20 19:06 Urine Test NEGATIVE (NEGATIVE) 01/31/20 19:06 Coronavirus (PCR) NEGATIVE (Negative) 01/31/20 20:52 Influenza Type A (PCR) NEGATIVE (Negative) 01/31/20 20:52 Influenza Type B (PCR) NEGATIVE (Negative) 01/31/20 20:52 RSV RNA Qual (PCR) NEGATIVE (Negative) 01/31/20 20:52 Preliminary micro results at discharge 01/31/20 19:44 Blood Culture - Preliminary Blood - Venous No growth after 48 hours. 01/31/20 19:12 Blood Culture - Preliminary Blood - Venous No growth after 48 hours. Discharge Plan Discharge Patient Disposition: Home, Self-Care Referrals: Di Martinez MD [Primary Care Provider] - Discharge Medications: New cefuroxime axetil 500 mg tablet 500 mg PO Q12H 10 Days Qty: 20 RF: 0 Continued trazodone 50 mg tablet 25 mg PO BEDTIME RF: 0 Changed sertraline 100 mg tablet 100 mg PO DAILY Qty: 0 RF: 0 Discharge Orders: Discharge Order (Routine); Ordered 02/03/20 Ordered By: Catarino Mcghee Diet: advance to usual diet Activity on Discharge: As tolerated Visit Report Forms: Patient Portal Discharge page Care Plan Goals: .care Health Concerns: Frequent UTI Urinary Retention Plan of Treatment: Frequent UTI - Finish course of antibiotics. 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
--- NOTE | 2020-02-03 10:24 | MHC.CM.PN ---
Met with patient. Expects D/C today. Pt happy to go home. will pick her up at 2pm.
--- NOTE | 2020-02-03 11:03 | MHC.CM.PN ---
Pt D/C home without services. Pt to call for transportation
[2020-02-03 11:37] VITALS: BP 120/67; PULSE 81; RESP 16; TEMP 36.1; O2SAT 98
== END 2020-02-03 14:36 | disposition home or self-care (01) | DRG 720 ==
LOC: HO.ED 02-01 00:46 → HO.S3 02-01 09:28
PROVIDERS: Nurse Practitioner Family; Admitting Provider Family Medicine; Emergency Provider Emergency Medicine; PCP Internal Medicine; Visit Provider Family Medicine
DX: A41.9 Sepsis, unspecified organism (principal); E87.1 Hypo-osmolality and hyponatremia; N12 Tubulo-interstitial nephritis, not specified as acute or chronic; B96.20 Unspecified Escherichia coli [E. coli] as the cause of diseases classified elsewhere; R31.9 Hematuria, unspecified; F32.9 Major depressive disorder, single episode, unspecified; F17.210 Nicotine dependence, cigarettes, uncomplicated; E87.6 Hypokalemia; F41.9 Anxiety disorder, unspecified; Q05.9 Spina bifida, unspecified; Z71.6 Tobacco abuse counseling; Z20.828 Contact with and (suspected) exposure to other viral communicable diseases; Z87.440 Personal history of urinary (tract) infections; Z79.899 Other long term (current) drug therapy
CPT/HCPCS: 0241U; 36415; 74176; 80048; 80076; 81001; 81025; 83605; 83690; 83735; 85025; 85027; 85610; 85730; 87040; 87086; 87088; 87186; 93005; 96361; 96365; 96367; 96375; 96376; 99285; 99291; C1758; J0696; J1650; J2270; J2405; J2543

== ENCOUNTER 2020-10-22 16:42 | Inpatient (IN) | payer OTHER, SELFPAY ==
--- NOTE | 2020-10-22 | ECG_ITS ---
Test Reason : DIZZINESS Blood Pressure : / mmHG Vent. Rate : 098 BPM Atrial Rate : 098 BPM P-R Int : 136 ms QRS Dur : 082 ms QT Int : 450 ms P-R-T Axes : 063 071 017 degrees QTc Int : 574 ms Normal sinus rhythm Possible Left atrial enlargement ST & T wave abnormality, consider inferior ischemia ST & T wave abnormality, consider anterolateral ischemia Prolonged QT Abnormal ECG When compared with ECG of 31-JAN-2020 19:12, significant changes noted. Referred By: Sergio Diaz Electronically Signed By:ADRIANA MARRERO
--- NOTE | ~2020-10-22 | US_ITS ---
EXAMINATION: US ABDOMEN LIMITED CLINICAL INFORMATION: Mild hepatic enlargement with steatosis. Possible gallbladder sludge. COMPARISON: CT abdomen and pelvis 10/23/2020, 01/31/2020 TECHNIQUE: Real-time imaging of the right upper quadrant abdominal viscera. FINDINGS: PANCREAS: The pancreas is largely obscured by bowel gas. Small portions visualized appear normal in size and with no ductal dilatation. Pancreatic unremarkable on recent CT. LIVER: The liver is borderline enlarged and smooth in contour. There is increased hepatic parenchymal echogenicity and coarsening of the hepatic echotexture consistent with the prominent hepatic steatosis on CT imaging. There is no focal hepatic parenchymal lesion. No intrahepatic ductal dilatation. Color Doppler shows portal flow towards the liver. GALLBLADDER: The gallbladder is physiologically distended and shows anechoic lumen without sludge or stone. There is no gallbladder wall thickening or polyps. No pericholecystic fluid. COMMON BILE DUCT: Normal in caliber measuring 0.2 cm in diameter. RIGHT KIDNEY: Right kidney measures 12.2 cm in length. The parenchyma areas uniform in thickness and echogenicity. There is no hydronephrosis or visible calculi. FREE FLUID: None. US/US abdomen limited IMPRESSION: 1. Hepatic steatosis. No focal parenchymal lesion. Portal flow towards the liver. 2. Unremarkable gallbladder. No stone or sludge or wall thickening. No ductal dilatation.
--- NOTE | ~2020-10-22 | CT_ITS ---
EXAMINATION: CT ABDOMEN AND PELVIS WITHOUT CONTRAST CLINICAL INFORMATION: Nausea and vomiting. Elevated LFTs. Rule out biliary disease. COMPARISON: 01/31/2020 TECHNIQUE: Multidetector volumetric imaging was performed from the superior aspect of the liver through the pubic symphysis. Sagittal and coronal reformatted images were obtained on the technologist's workstation. This CT examination was performed using dose optimization techniques as appropriate, variously including the following: *Automated exposure control *Adjustment of mA and/or kV according to patient size (this includes techniques or standardized protocols for targeted exams where dose is matched to indication/reason for exam; i.e. extremities or head) *Use of iterative reconstruction technique DLP: 353 mGy-cm FINDINGS: LUNG BASES: The visualized lung bases are unremarkable. LIVER, GALLBLADDER, AND BILIARY TREE: The liver is enlarged measuring 20 cm CC. There is significant decreased attenuation of the hepatic parenchyma. Normal contour of the liver. No focal hepatic lesion or biliary ductal dilatation is present. The gallbladder is normally distended with no evidence of radiopaque gallstones, gallbladder wall thickening, or obvious pericholecystic inflammatory changes. There could be sludge in the gallbladder lumen. PANCREAS: Unremarkable. SPLEEN: Normal size spleen. Redemonstration of the exophytic cyst measuring 2 cm at the medial aspect. ADRENAL GLANDS: Unremarkable. KIDNEYS AND URETERS: The kidneys are normal in size, shape, and attenuation. No hydronephrosis, hydroureter, or calculi seen. No perinephric stranding. BLADDER: Normally distended. There is circumferential wall thickening, most prominent at the dome of the bladder. This appears chronic.. GASTROINTESTINAL TRACT: The stomach is unremarkable. Normal caliber small bowel. No obstruction. No colonic wall thickening or acute inflammation. No free air or free fluid. ABDOMINAL WALL: No significant hernia is appreciated. LYMPH NODES: Normal. VASCULAR: Unremarkable. PELVIC VISCERA: The uterus and adnexa are unremarkable. OSSEOUS STRUCTURES: Dysplastic appearance of the sacrum. No acute osseous abnormality. CT/CT abdomen pelvis wo con IMPRESSION: Hepatomegaly with severe hepatic steatosis. No biliary ductal dilatation. Possible sludge filling the gallbladder lumen. Chronic bladder wall thickening.
[2020-10-22 17:23] VITALS: BP 130/86; PULSE 107; RESP 18; TEMP 36.2; O2SAT 100; BMI 27.3
--- NOTE | 2020-10-22 20:32 | PC.NURSE ---
x2 call for room assignment, no answer
[2020-10-22 20:44] LABS: MANUAL DIFF FLAG NO
[2020-10-22 20:50] LABS: Appearance Urine HAZY; Color Urine DARK YELLOW; Glucose Urine UA NEG (NEG); Leukocyte Esterase Urine 1+ (NEG); Nitrite Urine NEG (NEG); Specific Gravity - Urine 1.025 (1.005-1.025); UACC Culture Trigger YES; UPreg QC Valid YES; Urine Blood 1+ (NEG); Urine Ketones 40 MG/DL (NEG); Urine Pregnancy NEGATIVE (NEGATIVE); Urine Protein 1+ MG/DL (NEG-TRACE)
[2020-10-22 20:59] LABS: Bacteria Urine 2+ /LPF; Renal Epithelial Cells Urine TRACE /LPF; Squamous Epithelial Cell Urine TRACE /LPF
[2020-10-22 21:09] LABS: COVID-19 Test Negative (Negative)
[2020-10-22 21:17] LABS: Alanine Aminotransferase 162 U/L (0-31); Albumin Level 4.4 g/dL (3.5-5.0); Alkaline Phosphatase 349 U/L (39-117); Anion Gap 29 (12-20); Aspartate Amino Transferase 212 U/L (5-31); Bilirubin Total 2.3 mg/dL (0.0-1.0); Blood Urea Nitrogen 19 mg/dL (9-16); Calcium 9.6 mg/dL (8.4-10.2); Carbon Dioxide 28 mmol/L (22-29); Chloride 65 mmol/L (96-108); Creatinine Clr Calc Pharmacy 86.5; Estimated Glomerular Filt Rate > 60; Glucose Random 103 mg/dL (60-115); Potassium 2.4 mmol/L (3.3-5.1); Sodium 120 mmol/L (135-145); Total Protein 7.7 g/dL (6.5-8.0)
[2020-10-22 21:46] LABS: Basophils Percent Auto 0.1 % (0-2); Eosinophils Percent Auto 0.1 % (0-4); Imm Gran Abs Auto 0.16 X10*3/uL (0.00-0.03); Imm Gran Pct Auto 1.1 % (0.0-0.4); Lymphocytes Absolute Auto 0.8 X10*3/uL (1.2-4.9); Lymphocytes Percent Auto 5.4 % (20-40); Mean Platelet Volume 11.2 fL (9.4-12.3); Monocytes Absolute Auto 1.4 X10*3/uL (0.1-1.2); Monocytes Percent Auto 9.7 % (2-11); NRBC Pct Auto 0.1 /100WBC (0.0-0.2); Neutrophils Absolute Auto 12.3 X10*3/uL (2.0-8.3); Neutrophils Percent Auto 83.6 % (45-73)
[2020-10-22 21:55] VITALS: BP 119/82; PULSE 97; RESP 12; TEMP 36.6
[2020-10-22 22:11] LABS: Magnesium 2.4 mg/dL (1.6-2.6)
[2020-10-22 22:13] LABS: Lactate Dehydrogenase 215 U/L (122-220)
[2020-10-22 22:15] LABS: Osmolality, Serum 243 mosm/kg (281-305); Sodium Urine Random < 20.0 mmol/L
[2020-10-22 22:18] LABS: Osmolality Urine 380 mosm/kg (373-1093)
--- NOTE | 2020-10-22 22:59 | ED.DIZZY ---
HPI - Dizziness General Chief Complaint: Dizziness Stated Complaint: dizziness Time Seen by Provider: 10/22/20 21:47 Source: patient Mode of arrival: ambulatory Limitations: no limitations History of Present Illness HPI Narrative: 35-year-old female who presents emergency department for evaluation of weakness, dizziness, nausea, vomiting and diarrhea. Patient states she has been sick for approximately 1 week. She states that she has been vomiting 4 to 5 times a day. She states she has had 2-3 episodes of loose diarrheal stool per day. She states that she has been only able to drink water and she drinks at least 5 bottles of water per day. She denied fever, chills, chest pain, shortness of breath, , frequency, urgency or dysuria. She states she is feeling very weak and fatigued. Related Data Home Medications Medication Instructions Recorded Confirmed trazodone 50 mg tablet 25 mg PO BEDTIME 01/31/20 10/23/20 amlodipine 5 mg tablet 1 tab PO DAILY 10/22/20 10/22/20 cranberry 400 mg capsule 1 cap PO BID 10/22/20 10/22/20 methenamine hippurate 1 gram tablet 1 tab PO BID 10/22/20 10/22/20 topiramate 25 mg tablet 1 tab PO BID 10/22/20 10/22/20 Previous Rx's Medication Instructions Recorded sertraline 100 mg tablet 100 mg PO DAILY #0 tab 02/03/20 Allergies Allergy/AdvReac Type Severity Reaction Status Date / Time No Known Allergies Allergy Verified 01/31/20 19:48 Review of Systems Review of Systems: Yes all other systems are reviewed and are negative [facility] Past Medical History [facility] Narrative: Past will history: Hyponatremia, urinary retention pt self caths, spina bifida, sepsis, frequent urinary tract infections, urosepsis. Social history: She denies tobacco use. She states she used to drink alcohol but does not drink alcohol anymore and takes topiramate for alcohol abuse. She occasionally smokes marijuana. Medical History (Updated 10/23/20 @ 00:11 by Sergio Diaz MD) Anxiety and depression Spina bifida Urinary retention Urinary retention Surgical History Previous back surgery Social History Social History Household Members: Family Housing: House Do you presently have visiting nurse or other home services: No Alcohol intake: never Patient Tobacco Use Status: Current everyday Tobacco user Cigarette Packs Per Day: 0.5 Cigarettes Per Day: 10.0 Second Hand Smoke Exposure: Yes Use of substances other than those prescribed or required for medical reasons: No Advance Directives: No Patient : No service: No Current occupational status: employed Physical Exam Vital Signs: Vital Signs: Last Vital Signs Temp 97.8 F 10/22/20 21:55 Pulse 97 10/22/20 21:55 Resp 12 10/22/20 21:55 BP 119/82 10/22/20 21:55 Pulse Ox 100 10/22/20 17:23 Body Mass Index 27.3 Const: General: cooperative and no acute distress Orientation/consciousness: oriented to person and oriented to place Limitations: no limitations HENMT: Head: Yes normal to inspection, Yes normocephalic and Yes atraumatic Ears: external ears normal General nose exam: Normal external nose present Face and sinus: Yes normal facial exam Mouth: other (Very dry mucous membranes, enlarged time) Throat: Yes posterior oropharynx normal Eyes: General: appearance normal, both eyes and all related structures Pupils: Equal, round and reactive pupils present Neck: Neck: Yes normal visual inspection, Yes no lymphadenopathy, Yes trachea midline and Yes supple Chest: Chest palpation & inspection: normal inspection of the chest and normal palpation of entire chest wall Resp: Effort & Inspection: normal respiratory effort and able to speak in complete sentences Auscultation: clear to auscultation bilaterally Cardio: Rate: regular rate Rhythm: regular rhythm Heart sounds: S1 normal heart sound present, S2 normal heart sound present and no murmurs GI: Inspection: Yes normal to inspection Palpation (GI): Soft to palpation, nontender and no guarding Auscultation: normal bowel sounds : General: Yes no CVA tenderness Back/Spine/Pelvis: Back: no CVA tenderness Skin: General skin exam: no rashes or lesions noted Neuro: General: oriented to person and oriented to place Cranial nerves: Yes CN's II-XII intact bilaterally and Yes Equal, round and reactive pupils present Cognition (Neuro): normal cognition Motor exam (neuro): 5/5 motor strength present throughout Extrem: General: Yes normal to inspection Psych: Appearance: grossly normal Speech and movement: Normal speech and movement present Affect: normal affect Attitude: cooperative Thought process: Normal thought process present Thought content: Normal thought content present Course Course Course Narrative: 35-year-old female who is brought to the emergency department for evaluation of weakness, fatigue, vomiting and diarrhea. Physical examination did reveal very dry mucous membranes otherwise was unremarkable. Laboratory evaluation revealed multiple abnormalities including elevated H&H of 22.8 [place] 58.[place] [address]. Low-sodium, low potassium and low chloride of 120, 2.4 and 65. Patient has an elevated anion gap of 29. Patient's ALT, AST and alk-phos were elevated at 212, 162, and 349. Total bilirubin was elevated at 2.3. Patient's serum osmolality was low at 243, serum osmolality was 380, urine sodium was less than 20. Urine was negative. Urine tox screen was positive for cannabis. COVID-19 test was negative. 0007: I did discuss this patient with the covering geothermal sheet metal worker, Dr. Akbar Beavers. Based on his interpretation of the patient's laboratory evaluation, he felt that the patient had hypovolemic hyponatremia in the patient's body was trying to hold onto sodium in this explains the very low urine sodium of less than 20. He felt that this was probably caused by the patient's diarrhea and vomiting and that the patient was drinking hypotonic fluid which made her hyponatremia worse. He also felt that the patient's elevated H&H was secondary to hemoconcentration. His recommendation was to give normal saline at 120 cc an hour in to check BMP every 6 hours. He recommended restricting the patient's water consumption to less than 50 oz a day. He also stated that the patient kidney eat food, drink Ensure and drink protein shakes. The geothermal sheet metal worker also recommended replacing the patient's potassium orally at 40 mEq every 4-6 hours based on her BMP values. The patient does have evidence of a possible urinary tract infection, and she is at risk for urinary tract infection since she has urinary retention and self caths. I ordered blood cultures x2 and ceftriaxone 1 g IV. 0007: I did discuss the patient's presentation with the covering hospitalist, given the patient's elevated LFTs, she requested that we do a CT scan of the pelvis to evaluate the patient's liver. MDM - Dizziness Lab Data Result diagrams: 10/22/20 20:33 10/22/20 20:33 Labs: Lab Results 10/22/20 10/22/20 10/22/20 Range/Units 20:33 20:33 20:33 WBC 14.7 H (4.8-10.8) X10*3/uL RBC 6.11 H D (4.20-5.50) X10*6/uL Hgb 22.8 H D (12.0-16.0) g/dl Hct 58.1 H D (37-47) % MCV 95.1 (80-98) fL MCH 37.3 H (27.0-33.0) pg MCHC 39.2 H (31.0-35.0) g/dl RDW 11.0 (11.0-16.0) % Plt Count 263 (160-400) X10*3/uL MPV 11.2 (9.4-12.3) fL Immature Gran % (Auto) 1.1 H (0.0-0.4) % Neut % (Auto) 83.6 H (45-73) % Lymph % (Auto) 5.4 L (20-40) % [place] % (Auto) 9.7 (2-11) % Eos % (Auto) 0.1 (0-4) % Baso % (Auto) 0.1 (0-2) % Lymph # (Auto) 0.8 L (1.2-4.9) X10*3/uL [place] # (Auto) 1.4 H (0.1-1.2) X10*3/uL Eos # (Auto) 0.0 (0.0-0.4) X10*3/uL Baso # (Auto) 0.0 (0.0-0.2) X10*3/uL Abs Immat Gran (auto) 0.16 H (0.00-0.03) X10*3/uL Absolute Neuts (auto) 12.3 H (2.0-8.3) X10*3/uL Absolute Nucleated RBC 0.020 H (0.0-0.012) X10*3/uL Nucleated RBC % (auto) 0.1 (0.0-0.2) /100WBC Sodium 120 L* (135-145) mmol/L Potassium 2.4 L* (3.3-5.1) mmol/L Chloride 65 L D (96-108) mmol/L Carbon Dioxide 28 (22-29) mmol/L Anion Gap 29 H (12-20) BUN 19 H D (9-16) mg/dL Creatinine 0.74 (0.5-1.4) mg/dL Estim Creat Clear Calc 86.5 Estimated GFR > 60 Random Glucose 103 (60-115) mg/dL Osmolality (281-305) mosm/kg Calcium 9.6 D (8.4-10.2) mg/dL Phosphorus 3.0 (2.7-4.5) mg/dL Magnesium 2.4 (1.6-2.6) mg/dL Ferritin Cancelled Total Bilirubin 2.3 H (0.0-1.0) mg/dL AST 212 H (5-31) U/L ALT 162 H (0-31) U/L Alkaline Phosphatase 349 H D (39-117) U/L Lactate Dehydrogenase 215 (122-220) U/L Total Protein 7.7 (6.5-8.0) g/dL Albumin 4.4 (3.5-5.0) g/dL Urine Color Urine Appearance Urine pH (5.0-8.0) Ur Specific [place] (1.005-1.025) Urine Protein (NEG-TRACE) MG/DL Urine Glucose (UA) (NEG) MG/DL Urine Ketones (NEG) MG/DL Urine Blood (NEG) Urine Nitrite (NEG) Ur Leukocyte Esterase (NEG) Urine RBC (0) /HPF Urine WBC (0-4) /HPF Ur Squamous Epith Cells /LPF Ur Renal Epithelial Cell /LPF Urine Bacteria /LPF Urine Yeast /HPF Urine Osmolality (373-1093) mosm/kg Ur Random Sodium mmol/L Urine Test (NEGATIVE) COVID-19 ([place]) Negative (Negative) COVID-19 Clin Com See Note 10/22/20 10/22/20 10/22/20 Range/Units 20:33 20:33 20:33 WBC (4.8-10.8) X10*3/uL RBC (4.20-5.50) X10*6/uL Hgb (12.0-16.0) g/dl Hct (37-47) % MCV (80-98) fL MCH (27.0-33.0) pg MCHC (31.0-35.0) g/dl RDW (11.0-16.0) % Plt Count (160-400) X10*3/uL MPV (9.4-12.3) fL Immature Gran % (Auto) (0.0-0.4) % Neut % (Auto) (45-73) % Lymph % (Auto) (20-40) % [place] % (Auto) (2-11) % Eos % (Auto) (0-4) % Baso % (Auto) (0-2) % Lymph # (Auto) (1.2-4.9) X10*3/uL [place] # (Auto) (0.1-1.2) X10*3/uL Eos # (Auto) (0.0-0.4) X10*3/uL Baso # (Auto) (0.0-0.2) X10*3/uL Abs Immat Gran (auto) (0.00-0.03) X10*3/uL Absolute Neuts (auto) (2.0-8.3) X10*3/uL Absolute Nucleated RBC (0.0-0.012) X10*3/uL Nucleated RBC % (auto) (0.0-0.2) /100WBC Sodium (135-145) mmol/L Potassium (3.3-5.1) mmol/L Chloride (96-108) mmol/L Carbon Dioxide (22-29) mmol/L Anion Gap (12-20) BUN (9-16) mg/dL Creatinine (0.5-1.4) mg/dL Estim Creat Clear Calc Estimated GFR Random Glucose (60-115) mg/dL Osmolality 243 L (281-305) mosm/kg Calcium (8.4-10.2) mg/dL Phosphorus (2.7-4.5) mg/dL Magnesium (1.6-2.6) mg/dL Ferritin Total Bilirubin (0.0-1.0) mg/dL AST (5-31) U/L ALT (0-31) U/L Alkaline Phosphatase (39-117) U/L Lactate Dehydrogenase (122-220) U/L Total Protein (6.5-8.0) g/dL Albumin (3.5-5.0) g/dL Urine Color DARK YELLOW Urine Appearance HAZY Urine pH 6.0 (5.0-8.0) Ur Specific [place] 1.025 (1.005-1.025) Urine Protein 1+ H (NEG-TRACE) MG/DL Urine Glucose (UA) NEG (NEG) MG/DL Urine Ketones 40 (NEG) MG/DL Urine Blood 1+ H (NEG) Urine Nitrite NEG (NEG) Ur Leukocyte Esterase 1+ H (NEG) Urine RBC 1-4 (0) /HPF Urine WBC 10-14 H (0-4) /HPF Ur Squamous Epith Cells TRACE /LPF Ur Renal Epithelial Cell TRACE /LPF Urine Bacteria 2+ /LPF Urine Yeast TRACE /HPF Urine Osmolality (373-1093) mosm/kg Ur Random Sodium mmol/L Urine Test NEGATIVE (NEGATIVE) COVID-19 ([facility]) (Negative) COVID-19 Clin Com 10/22/20 10/22/20 Range/Units 20:33 20:33 WBC (4.8-10.8) X10*3/uL RBC (4.20-5.50) X10*6/uL Hgb (12.0-16.0) g/dl Hct (37-47) % MCV (80-98) fL MCH (27.0-33.0) pg MCHC (31.0-35.0) g/dl RDW (11.0-16.0) % Plt Count (160-400) X10*3/uL MPV (9.4-12.3) fL Immature Gran % (Auto) (0.0-0.4) % Neut % (Auto) (45-73) % Lymph % (Auto) (20-40) % [place] % (Auto) (2-11) % Eos % (Auto) (0-4) % Baso % (Auto) (0-2) % Lymph # (Auto) (1.2-4.9) X10*3/uL [place] # (Auto) (0.1-1.2) X10*3/uL Eos # (Auto) (0.0-0.4) X10*3/uL Baso # (Auto) (0.0-0.2) X10*3/uL Abs Immat Gran (auto) (0.00-0.03) X10*3/uL Absolute Neuts (auto) (2.0-8.3) X10*3/uL Absolute Nucleated RBC (0.0-0.012) X10*3/uL Nucleated RBC % (auto) (0.0-0.2) /100WBC Sodium (135-145) mmol/L Potassium (3.3-5.1) mmol/L Chloride (96-108) mmol/L Carbon Dioxide (22-29) mmol/L Anion Gap (12-20) BUN (9-16) mg/dL Creatinine (0.5-1.4) mg/dL Estim Creat Clear Calc Estimated GFR Random Glucose (60-115) mg/dL Osmolality (281-305) mosm/kg Calcium (8.4-10.2) mg/dL Phosphorus (2.7-4.5) mg/dL Magnesium (1.6-2.6) mg/dL Ferritin Total Bilirubin (0.0-1.0) mg/dL AST (5-31) U/L ALT (0-31) U/L Alkaline Phosphatase (39-117) U/L Lactate Dehydrogenase (122-220) U/L Total Protein (6.5-8.0) g/dL Albumin (3.5-5.0) g/dL Urine Color Urine Appearance Urine pH (5.0-8.0) Ur Specific [place] (1.005-1.025) Urine Protein (NEG-TRACE) MG/DL Urine Glucose (UA) (NEG) MG/DL Urine Ketones (NEG) MG/DL Urine Blood (NEG) Urine Nitrite (NEG) Ur Leukocyte Esterase (NEG) Urine RBC (0) /HPF Urine WBC (0-4) /HPF Ur Squamous Epith Cells /LPF Ur Renal Epithelial Cell /LPF Urine Bacteria /LPF Urine Yeast /HPF Urine Osmolality 380 (373-1093) mosm/kg Ur Random Sodium < 20.0 mmol/L Urine Test (NEGATIVE) COVID-19 ([facility]) (Negative) COVID-19 Clin Com ECG Data Attestation: I personally reviewed and interpreted this ECG as follows: Interpretation: Normal sinus rhythm rate of 94, normal RI interval of 136 milliseconds, and normal QRS duration of 82 milliseconds, prolonged QTC of 574 milliseconds, ST segment depression in leads 2, 3, AVF, V3 through V6, no ST segment elevation, no PACs, no PVCs. Critical Care Time Critical Care Time Critical Care Time: Yes Total Critical Care Time: 45 Attestation: Critical Care: The patient was critically ill with a high probability of imminent or life threatening deterioration. I spent greater than 30 minutes of discontinuous time evaluating the patient,delivering critical care at the bedside, discussing and evaluating pertinent data with consultants. Critical care time does not include time spent performing separately billable procedures or teaching. Total time spent performing critical care was 45 minutes. Discharge Plan Discharge Clinical Impression: Hyponatremia, Hypovolemia, Acute hypokalemia Urinary tract infection Qualifiers: Urinary tract infection type: site unspecified Patient Disposition: Admitted As Inpatient Interventions: LWBS Worksheet Last Done: 10/22/20 20:32
--- NOTE | 2020-10-22 23:24 | PC.NURSE ---
REPORT TAKEN FROM LORI FINCH, FIRST CONTACT WITH PT. RESTING IN BED, SKIN PWD RESPIRATIONS EVEN UNLABORED. MD GERONIMO AT BEDSIDE FOR REEVAL. AWAITING UPDATE OF PLAN OF CARE.
[2020-10-23] VITALS (8 sets, daily range): BP systolic 96–120; BP diastolic 61–82; PULSE 77–99; RESP 14–20; TEMP 36.1–36.7; O2SAT 96–100
[2020-10-23] MEDS: cefTRIAXone sodium 1 GM in 0.9 % Sodium Chloride 50 ML IV ×2 (01:00→23:26)
[2020-10-23] MEDS: 0.9 % Sodium Chloride 1,000 ML 120 ML IVCONT ×2 (01:00→10:10)
[2020-10-23] MEDS: Metoclopramide HCl 10 MG/2 ML VIAL IVPUSH (01:01)
[2020-10-23] MEDS: Enoxaparin Sodium 40 MG/0.4 ML SYRINGE SUBCUT ×2 (02:48→23:27)
[2020-10-23] MEDS: Potassium Chloride Packet 20 MEQ PACKET 40 MEQ PO (02:50)
[2020-10-23] MEDS: Potassium Chloride ER 20 MEQ TAB.ER.PRT 40 MEQ PO ×2 (03:14→07:47)
[2020-10-23 03:34] LABS: Ferritin 6853 ng/mL (10-122)
--- NOTE | 2020-10-23 06:21 | PM.IMHP ---
History of Present Illness Date of Service: 10/23/20 Chief Complaint: Dizziness Medical history of alcohol abuse currently reports not drinking, history of depression, spina bifida, hypertension who presents to the hospital with complaints of dizziness. Patient reports that she has been having significant amount of nausea, vomiting on diarrhea for the past 1 week. She reports 3-4 episodes of vomiting daily as well as 2-3 episodes of diarrhea daily. Nonbloody watery diarrhea. She has significantly reduced her p.o. intake due to the vomiting. She reports that she has been trying to stay hydrated with water but throws up most of the water intake. Reports no abdominal pain, no chest pain, no shortness of breath. She reports that this has happened to her before but not this severely. She has a quaker headache that is been going on for few days, she reports that the dizziness is also causing her blurry vision, denies any confusion. She reports urgency, dysuria, as well as frequency. No fever or chills. On arrival to the ED patient hemodynamically stable with no abnormal vitals Labs on arrival significant for WBC count of 14.7, hemoglobin of 22.8, hematocrit 58.1, 120 with a baseline around 131, potassium of 2.4, chloride of 65, BUN of 19, creatinine of 0.74, osmolality serum, 243, total bili of 2.3, AST of 212, ALT of 162, ferritin of 6853, UA that is positive for leukocyte Estrace as well as WBC, urine osmolality of 380, urine random sodium less than [address] shows hepatomegaly, with severe hepatic steatosis, no biliary ductal dilatation, possible sludge filling the gallbladder lumen Case was discussed with Nephrology, and patient will be admitted for further management Review of Systems Review of Systems: Yes all other systems are reviewed and are negative [facility] Medical History (Updated 10/23/20 @ 06:38 by Agustín Aguillon MD) Anxiety and depression Hypertension Spina bifida Urinary retention Urinary retention Surgical History Previous back surgery Social History Household Members: Family Household Members Other:: lives with fiance and twin daughters Housing: House Do you presently have visiting nurse or other home services: No Alcohol intake: never Patient Tobacco Use Status: Current everyday Tobacco user Tobacco use type: Cigarette Cigarette Packs Per Day: 0.5 Cigarettes Per Day: 10 Smoked in Last 30 Days: Yes Patient Interested in Nicotine Replacement: No Patient Given Instructions on How to Stop Smoking: No Second Hand Smoke Exposure: No Use of substances other than those prescribed or required for medical reasons: No Currently Displaying Signs/Symptoms of Drug Intoxication Withdrawal: No Any prior treatment program specific to substance use: No Have you been hit, kicked, punched, or otherwise hurt by someone within the past year? If so, by whom?: No Do you feel safe in your current relationship?: Yes Is there a partner from a previous relationship who is making you feel unsafe now?: No Are you made to feel afraid or neglected: No Advance Directives: No Advance Directives on File: No Do you have thoughts of harming others: None Do you have a plan to hurt others: No Plan Recently lost weight without trying: No Eating poorly because of decreased appetite: No Nutrition Risks: Acute nausea or vomiting x1 week Patient : No : No Poor oral hygiene: No service: No Current occupational status: employed Meds Allergies Allergy/AdvReac Type Severity Reaction Status Date / Time No Known Allergies Allergy Verified 01/31/20 19:48 Active Medications: Current Medications Generic Name Dose Route Start Last Admin Trade Name Freq PRN Reason Stop Dose Admin Acetaminophen 650 mg 10/23/20 01:55 Acetaminophen 325 Mg Tablet PO Q6H PRN Pain, Mild (Pain Scale 1-3) Amlodipine Besylate 5 mg 10/23/20 09:00 Amlodipine Besylate 5 Mg Tablet PO DAILY ARELY Protocol Docusate Sodium 100 mg 10/23/20 01:55 Docusate Sodium 100 Mg Capsule PO DAILY PRN Constipation Enoxaparin Sodium 40 mg 10/23/20 01:55 10/23/20 02:48 Enoxaparin Sodium 40 Mg/0.4 Ml Syringe SUBCUT 40 mg Q24H ARELY Administration Sodium Chloride 1,000 mls @ 120 mls/hr 10/22/20 23:45 10/23/20 01:00 Ns IVCONT 120 mls/hr .[id number] ARELY Administration Ceftriaxone Sodium 1 gm/ 50 mls @ 100 mls/hr 10/24/20 00:00 Sodium Chloride IV Q24H ARELY Non-Formulary Medication 1 tab 10/23/20 09:00 Methenamine Hippurate PO BID [facility] Ondansetron HCl 4 mg 10/23/20 01:55 Ondansetron Hcl 4 Mg/2 Ml Vial IVPUSH Q8H PRN Nausea and Vomiting Potassium Chloride 40 meq 10/23/20 03:15 10/23/20 03:14 Potassium Chloride Er 20 Meq Tab.Er.Prt PO 10/23/20 07:16 40 meq Q4H ARELY Administration Sertraline HCl 100 mg 10/23/20 09:00 Sertraline Hcl 100 Mg Tablet PO DAILY [facility] Sodium Chloride 3 ml 10/23/20 08:00 0.9 % Sodium Chloride Flush 3 Ml Syringe IVFLUSH QSHIFT [facility] Topiramate 25 mg 10/23/20 09:00 Topiramate 25 Mg Tablet PO BID [facility] Trazodone HCl 25 mg 10/23/20 21:00 Trazodone Hcl 25 Mg Halftab PO BEDTIME [facility] Home Medications Medication Instructions Recorded Confirmed Last Taken Type trazodone 50 mg tablet 25 mg PO BEDTIME 01/31/20 10/23/20 10/22/20 History amlodipine 5 mg tablet 1 tab PO DAILY 10/22/20 10/22/20 10/22/20 History cranberry 400 mg capsule 1 cap PO BID 10/22/20 10/22/20 10/22/20 History methenamine hippurate 1 gram tablet 1 tab PO BID 10/22/20 10/22/20 10/22/20 History topiramate 25 mg tablet 1 tab PO BID 10/22/20 10/22/20 10/22/20 History Physical Exam Vital Signs and Narrative: Vital Signs: Last Vital Signs Temp 97.8 F 10/23/20 02:42 Pulse 99 10/23/20 02:42 Resp 14 10/23/20 02:42 BP 120/82 10/23/20 02:42 Pulse Ox 100 10/23/20 02:42 Body Mass Index 27.3 Const: General: cooperative and no acute distress Orientation/consciousness: patient oriented x3 Eyes: General: appearance normal, both eyes and all related structures Resp: Effort & Inspection: normal respiratory effort and able to speak in complete sentences Auscultation: clear to auscultation bilaterally Cardio: Rate: regular rate Rhythm: regular rhythm GI: Other: No tenderness, no rebound, no guarding Palpation (GI): Soft to palpation Auscultation: normal bowel sounds Skin: General skin exam: no rashes or lesions noted Neuro: General: patient oriented x3 Cognition (Neuro): normal cognition Extrem: General: Yes normal to inspection and Yes no pedal edema Results Labs CBC and Chem 7: 10/22/20 20:33 10/22/20 20:33 Labs: Laboratory Results - last 24 hr 10/22/20 10/22/20 10/22/20 20:33 20:33 20:33 MCV 95.1 MCH 37.3 H MCHC 39.2 H RDW 11.0 Plt Count 263 MPV 11.2 Immature Gran % (Auto) 1.1 H Neut % (Auto) 83.6 H Lymph % (Auto) 5.4 L Jones % (Auto) 9.7 Eos % (Auto) 0.1 Baso % (Auto) 0.1 Lymph # (Auto) 0.8 L Jones # (Auto) 1.4 H Eos # (Auto) 0.0 Baso # (Auto) 0.0 Abs Immat Gran (auto) 0.16 H Absolute Neuts (auto) 12.3 H Absolute Nucleated RBC 0.020 H Nucleated RBC % (auto) 0.1 Anion Gap 29 H Estim Creat Clear Calc 86.5 Estimated GFR > 60 Random Glucose 103 Osmolality Calcium 9.6 D Phosphorus 3.0 Magnesium 2.4 Ferritin Cancelled Total Bilirubin 2.3 H AST 212 H ALT 162 H Alkaline Phosphatase 349 H D Lactate Dehydrogenase 215 Total Protein 7.7 Albumin 4.4 Urine Color Urine Appearance Urine pH Ur Specific [place] Urine Protein Urine Glucose (UA) Urine Ketones Urine Blood Urine Nitrite Ur Leukocyte Esterase Urine RBC Urine WBC Ur Squamous Epith Cells Ur Renal Epithelial Cell Urine Bacteria Urine Yeast Urine Osmolality Ur Random Sodium Urine Test COVID-19 ([place]) Negative COVID-19 Clin Com See Note 10/22/20 10/22/20 10/22/20 20:33 20:33 20:33 MCV MCH MCHC RDW Plt Count MPV Immature Gran % (Auto) Neut % (Auto) Lymph % (Auto) Jones % (Auto) Eos % (Auto) Baso % (Auto) Lymph # (Auto) Jones # (Auto) Eos # (Auto) Baso # (Auto) Abs Immat Gran (auto) Absolute Neuts (auto) Absolute Nucleated RBC Nucleated RBC % (auto) Anion Gap Estim Creat Clear Calc Estimated GFR Random Glucose Osmolality 243 L Calcium Phosphorus Magnesium Ferritin Total Bilirubin AST ALT Alkaline Phosphatase Lactate Dehydrogenase Total Protein Albumin Urine Color DARK YELLOW Urine Appearance HAZY Urine pH 6.0 Ur Specific [place] 1.025 Urine Protein 1+ H Urine Glucose (UA) NEG Urine Ketones 40 Urine Blood 1+ H Urine Nitrite NEG Ur Leukocyte Esterase 1+ H Urine RBC 1-4 Urine WBC 10-14 H Ur Squamous Epith Cells TRACE Ur Renal Epithelial Cell TRACE Urine Bacteria 2+ Urine Yeast TRACE Urine Osmolality Ur Random Sodium Urine Test NEGATIVE COVID-19 ([place]) COVID-19 [employer] 10/22/20 10/22/20 10/23/20 20:33 20:33 01:00 MCV MCH MCHC RDW Plt Count MPV Immature Gran % (Auto) Neut % (Auto) Lymph % (Auto) Jones % (Auto) Eos % (Auto) Baso % (Auto) Lymph # (Auto) Jones # (Auto) Eos # (Auto) Baso # (Auto) Abs Immat Gran (auto) Absolute Neuts (auto) Absolute Nucleated RBC Nucleated RBC % (auto) Anion Gap Estim Creat Clear Calc Estimated GFR Random Glucose Osmolality Calcium Phosphorus Magnesium Ferritin 6853 H Total Bilirubin AST ALT Alkaline Phosphatase Lactate Dehydrogenase Total Protein Albumin Urine Color Urine Appearance Urine pH Ur Specific [place] Urine Protein Urine Glucose (UA) Urine Ketones Urine Blood Urine Nitrite Ur Leukocyte Esterase Urine RBC Urine WBC Ur Squamous Epith Cells Ur Renal Epithelial Cell Urine Bacteria Urine Yeast Urine Osmolality 380 Ur Random Sodium < 20.0 Urine Test COVID-19 ([place]) COVID-19 [facility] Radiologist's Impressions: Impressions Abdomen/Pelvis CT 10/23/20 00:02 IMPRESSION: Hepatomegaly with severe hepatic steatosis. No biliary ductal dilatation. Possible sludge filling the gallbladder lumen. Chronic bladder wall thickening. Assessment and Plan (1) Hyponatremia: Status: Acute (2) Nausea vomiting and diarrhea: Status: Acute (3) Hypovolemia: Status: Acute (4) Acute hypokalemia: Status: Acute (5) Urinary tract infection: Qualifiers: Urinary tract infection type: site unspecified Status: Acute (6) Elevated hemoglobin: Status: Acute (7) Hepatomegaly: Status: Acute This is a 35-year-old female with past medical history of hypertension, history of alcohol abuse she reports currently is not drinking presents to the hospital with persistent nausea vomiting diarrhea and dizziness. # nausea vomiting diarrhea - possibly secondary to viral versus bacterial gastroenteritis - CT abdomen showing hepatic steatosis with no other significant abnormality - will rule out C diff - stool cultures - IV fluids - supportive measures with Zofran p.r.n. # hyponatremia -= mos likely secondary to hypovolemic hyponatremia - baseline sodium around 131, presents with sodium of 120, no neurological deficits - has decreased serum osmolality, increased urine osmolality with sodium less than 20 - nephrology consult, recommended NS at 120 cc an hour, decreased oral free water intake, - BMP q.6 hours # hypokalemia - secondary to diarrhea and vomiting - repleted - follow BMP # UTI - UA positive, symptomatic - will treat with ceftriaxone - follow cultures # elevated hemoglobin and ferritin - possibly hemoconcentrated - but given her CT findings of hepatomegaly as well as elevated ferritin will repeat hemoglobin, and obtain iron studies # hepatomegaly and severe steatosis - possibly secondary to her history of alcohol abuse - cannot rule out hemochromatosis given her elevated hemoglobin as well as ferritin - will obtain right upper quadrant ultrasound as well as iron studies DVT prophylaxis Lovenox Quality Stroke Does the patient have a stroke diagnosis?: No VTE Prior VTE?: No VTE Risk Level:: Medical - moderate - high VTE Device Contraindication: Treatment Not Indicated VTE Drug Contraindication: N/A - Med Ordered
[2020-10-23 06:57] LABS: Basophils Percent Auto 0.1 % (0-2); Eosinophils Percent Auto 0.1 % (0-4); Hematocrit 35.5 % (37-47); Hemoglobin 13.7 g/dl (12.0-16.0); Imm Gran Abs Auto 0.08 X10*3/uL (0.00-0.03); Imm Gran Pct Auto 0.8 % (0.0-0.4); Lymphocytes Absolute Auto 0.7 X10*3/uL (1.2-4.9); Lymphocytes Percent Auto 6.7 % (20-40); MANUAL DIFF FLAG SCAN; Mean Corpuscular Hemoglobin 36.9 pg (27.0-33.0); Mean Corpuscular Volume 95.7 fL (80-98); Mean Platelet Volume 10.2 fL (9.4-12.3); Monocytes Absolute Auto 1.1 X10*3/uL (0.1-1.2); Monocytes Percent Auto 10.8 % (2-11); Neutrophils Percent Auto 81.5 % (45-73); Platelet Count 159 X10*3/uL (160-400); Red Blood Count 3.71 X10*6/uL (4.20-5.50); Red Cell Distribution Width 10.9 % (11.0-16.0); SCAN SMEAR FLAG 1; White Blood Count 9.8 X10*3/uL (4.8-10.8)
[2020-10-23 07:13] LABS: Mean Corpuscular HGB Conc 38.6 g/dl (31.0-35.0)
[2020-10-23 07:15] LABS: SLIDE REVIEW VERIFIED
[2020-10-23 07:26] LABS: Iron 135 mcg/dL (30-160)
[2020-10-23 07:27] LABS: Anion Gap 23 (12-20); Blood Urea Nitrogen 15 mg/dL (9-16); Carbon Dioxide 30 mmol/L (22-29); Chloride 73 mmol/L (96-108); Creatinine Clr Calc Pharmacy 101.7; Estimated Glomerular Filt Rate > 60; Glucose Random 96 mg/dL (60-115); Potassium 2.4 mmol/L (3.3-5.1); Sodium 124 mmol/L (135-145)
[2020-10-23 07:33] LABS: Percent Iron Saturation 83 % (15-50); Total Iron Binding Capacity 163 mcg/dL (228-428); Unsaturated Iron Binding 28 ug/dL
[2020-10-23] MEDS: Sertraline HCL 100 MG TABLET PO (07:46)
[2020-10-23] MEDS: Topiramate 25 MG TABLET PO ×2 (07:47→21:42)
[2020-10-23] MEDS: 0.9 % Sodium Chloride Flush 3 ML SYRINGE IVFLUSH (07:48)
--- NOTE | 2020-10-23 07:57 | P.PNNP_ITS ---
Subjective Subjective Date of Service: 10/23/20 Physical Exam Vital Signs: Vital Signs: Last Vital Signs Temp 97 F 10/23/20 07:03 Pulse 87 10/23/20 07:47 Resp 20 10/23/20 07:03 BP 98/61 10/23/20 07:47 Pulse Ox 99 10/23/20 07:03 Body Mass Index 27.3 Const: General: cooperative and no acute distress Orie ntation/consciousness: oriented to person, oriented to place and patient oriented x3 Limitations: no limitations HENMT: Head: Yes normal to inspection, Yes normocephalic and Yes atraumatic Ears: external ears normal General nose exam: Normal external nose present Face and sinus: Yes normal facial exam Mouth: other (Very dry mucous membranes, enlarged time) Throat: Yes posterior oropharynx normal Eyes: General: appearance normal, both eyes and all related structures Pupils: Equal, round and reactive pupils present Neck: Neck: Yes normal visual inspection, Yes no lymphadenopathy, Yes trachea midline and Yes supple Chest: Chest palpation & inspection: normal inspection of the chest and normal palpation of entire chest wall Resp: Effort & Inspection: normal respiratory effort and able to speak in complete sentences Auscultation: clear to auscultation bilaterally Cardio: Rate: regular rate Rhythm: regular rhythm Heart sounds: S1 normal heart sound present, S2 normal heart sound present and no murmurs GI: Other: No tenderness, no rebound, no guarding Inspection: Yes normal to inspection Palpation (GI): Soft to palpation, nontender and no guarding Auscultation: normal bowel sounds : General: Yes no CVA tenderness Back/Spine/Pelvis: Back: no CVA tenderness Skin: General skin exam: no rashes or lesions noted Neuro: General: oriented to person, oriented to place and patient oriented x3 Cranial nerves: Yes CN's II-XII intact bilaterally and Yes Equal, round and reactive pupils present Cognition (Neuro): normal cognition Motor exam (neuro): 5/5 motor strength present throughout Extrem: General: Yes normal to inspection and Yes no pedal edema Psych: Appearance: grossly normal Speech and movement: Normal speech and movement present Affect: normal affect Attitude: cooperative Thought process: Normal thought process present Thought content: Normal thought content present Objective Data Labs CBC & Chem 7: 10/23/20 06:43 10/23/20 06:43 Labs: Laboratory Results - last 24 hr 10/22/20 10/22/20 10/22/20 20:33 20:33 20:33 WBC 14.7 H RBC 6.11 H D Hgb 22.8 H D Hct 58.1 H D MCV 95.1 MCH 37.3 H MCHC 39.2 H RDW 11.0 Plt Count 263 MPV 11.2 Immature Gran % (Auto) 1.1 H Neut % (Auto) 83.6 H Lymph % (Auto) 5.4 L [place] % (Auto) 9.7 Eos % (Auto) 0.1 Baso % (Auto) 0.1 Lymph # (Auto) 0.8 L [place] # (Auto) 1.4 H Eos # (Auto) 0.0 Baso # (Auto) 0.0 Abs Immat Gran (auto) 0.16 H Absolute Neuts (auto) 12.3 H Absolute Nucleated RBC 0.020 H Nucleated RBC % (auto) 0.1 Smear Tech's Comments Sodium 120 L* Potassium 2.4 L* Chloride 65 L D Carbon Dioxide 28 Anion Gap 29 H BUN 19 H D Creatinine 0.74 Estim Creat Clear Calc 86.5 Estimated GFR > 60 Random Glucose 103 Osmolality Calcium 9.6 D Phosphorus 3.0 Magnesium 2.4 Iron TIBC % Saturation Unsat Iron Binding Ferritin Cancelled Total Bilirubin 2.3 H AST 212 H ALT 162 H Alkaline Phosphatase 349 H D Lactate Dehydrogenase 215 Total Protein 7.7 Albumin 4.4 Urine Color Urine Appearance Urine pH Ur Specific [place] Urine Protein Urine Glucose (UA) Urine Ketones Urine Blood Urine Nitrite Ur Leukocyte Esterase Urine RBC Urine WBC Ur Squamous Epith Cells Ur Renal Epithelial Cell Urine Bacteria Urine Yeast Urine Osmolality Ur Random Sodium Urine Test COVID-19 ([place]) Negative COVID-19 Clin Com See Note 10/22/20 10/22/20 10/22/20 20:33 20:33 20:33 WBC RBC Hgb Hct MCV MCH MCHC RDW Plt Count MPV Immature Gran % (Auto) Neut % (Auto) Lymph % (Auto) [place] % (Auto) Eos % (Auto) Baso % (Auto) Lymph # (Auto) [place] # (Auto) Eos # (Auto) Baso # (Auto) Abs Immat Gran (auto) Absolute Neuts (auto) Absolute Nucleated RBC Nucleated RBC % (auto) Smear Tech's Comments Sodium Potassium Chloride Carbon Dioxide Anion Gap BUN Creatinine Estim Creat Clear Calc Estimated GFR Random Glucose Osmolality 243 L Calcium Phosphorus Magnesium Iron TIBC % Saturation Unsat Iron Binding Ferritin Total Bilirubin AST ALT Alkaline Phosphatase Lactate Dehydrogenase Total Protein Albumin Urine Color DARK YELLOW Urine Appearance HAZY Urine pH 6.0 Ur Specific [place] 1.025 Urine Protein 1+ H Urine Glucose (UA) NEG Urine Ketones 40 Urine Blood 1+ H Urine Nitrite NEG Ur Leukocyte Esterase 1+ H Urine RBC 1-4 Urine WBC 10-14 H Ur Squamous Epith Cells TRACE Ur Renal Epithelial Cell TRACE Urine Bacteria 2+ Urine Yeast TRACE Urine Osmolality Ur Random Sodium Urine Test NEGATIVE COVID-19 ([place]) COVID-19 Clin Com 10/22/20 10/22/20 10/23/20 20:33 20:33 01:00 WBC RBC Hgb Hct MCV MCH MCHC RDW Plt Count MPV Immature Gran % (Auto) Neut % (Auto) Lymph % (Auto) [place] % (Auto) Eos % (Auto) Baso % (Auto) Lymph # (Auto) [place] # (Auto) Eos # (Auto) Baso # (Auto) Abs Immat Gran (auto) Absolute Neuts (auto) Absolute Nucleated RBC Nucleated RBC % (auto) Smear Tech's Comments Sodium Potassium Chloride Carbon Dioxide Anion Gap BUN Creatinine Estim Creat Clear Calc Estimated GFR Random Glucose Osmolality Calcium Phosphorus Magnesium Iron TIBC % Saturation Unsat Iron Binding Ferritin 6853 H Total Bilirubin AST ALT Alkaline Phosphatase Lactate Dehydrogenase Total Protein Albumin Urine Color Urine Appearance Urine pH Ur Specific [place] Urine Protein Urine Glucose (UA) Urine Ketones Urine Blood Urine Nitrite Ur Leukocyte Esterase Urine RBC Urine WBC Ur Squamous Epith Cells Ur Renal Epithelial Cell Urine Bacteria Urine Yeast Urine Osmolality 380 Ur Random Sodium < 20.0 Urine Test COVID-19 ([place]) COVID-19 [employer] 10/23/20 10/23/20 10/23/20 06:43 06:43 06:43 WBC Cancelled 9.8 RBC Cancelled 3.71 L D Hgb Cancelled 13.7 D Hct Cancelled 35.5 L D MCV Cancelled 95.7 MCH Cancelled 36.9 H MCHC Cancelled 38.6 H RDW Cancelled 10.9 L Plt Count Cancelled 159 L D MPV Cancelled 10.2 Immature Gran % (Auto) Cancelled 0.8 H Neut % (Auto) Cancelled 81.5 H Lymph % (Auto) Cancelled 6.7 L [place] % (Auto) Cancelled 10.8 Eos % (Auto) Cancelled 0.1 Baso % (Auto) Cancelled 0.1 Lymph # (Auto) Cancelled 0.7 L [place] # (Auto) Cancelled 1.1 Eos # (Auto) Cancelled 0.0 Baso # (Auto) Cancelled 0.0 Abs Immat Gran (auto) Cancelled 0.08 H Absolute Neuts (auto) Cancelled 8.0 Absolute Nucleated RBC Cancelled 0.000 Nucleated RBC % (auto) Cancelled 0.0 Smear Tech's Comments VERIFIED Sodium 124 L Potassium 2.4 L* Chloride 73 L Carbon Dioxide 30 H Anion Gap 23 H BUN 15 Creatinine 0.63 Estim Creat Clear Calc 101.7 Estimated GFR > 60 Random Glucose 96 Osmolality Calcium 9.0 D Phosphorus Magnesium Iron TIBC % Saturation Unsat Iron Binding Ferritin Total Bilirubin AST ALT Alkaline Phosphatase Lactate Dehydrogenase Total Protein Albumin Urine Color Urine Appearance Urine pH Ur Specific [place] Urine Protein Urine Glucose (UA) Urine Ketones Urine Blood Urine Nitrite Ur Leukocyte Esterase Urine RBC Urine WBC Ur Squamous Epith Cells Ur Renal Epithelial Cell Urine Bacteria Urine Yeast Urine Osmolality Ur Random Sodium Urine Test COVID-19 ([place]) [employer] 10/23/20 10/23/20 06:43 06:43 WBC RBC Hgb Hct MCV MCH MCHC RDW Plt Count MPV Immature Gran % (Auto) Neut % (Auto) Lymph % (Auto) [place] % (Auto) Eos % (Auto) Baso % (Auto) Lymph # (Auto) [place] # (Auto) Eos # (Auto) Baso # (Auto) Abs Immat Gran (auto) Absolute Neuts (auto) Absolute Nucleated RBC Nucleated RBC % (auto) Smear Tech's Comments Sodium Cancelled Potassium Cancelled Chloride Cancelled Carbon Dioxide Cancelled Anion Gap Cancelled BUN Cancelled Creatinine Cancelled Estim Creat Clear Calc Cancelled Estimated GFR Cancelled Random Glucose Cancelled Osmolality Calcium Cancelled Phosphorus Magnesium Iron 135 TIBC 163 L % Saturation 83 H Unsat Iron Binding 28 Ferritin Total Bilirubin AST ALT Alkaline Phosphatase Lactate Dehydrogenase Total Protein Albumin Urine Color Urine Appearance Urine pH Ur Specific [place] Urine Protein Urine Glucose (UA) Urine Ketones Urine Blood Urine Nitrite Ur Leukocyte Esterase Urine RBC Urine WBC Ur Squamous Epith Cells Ur Renal Epithelial Cell Urine Bacteria Urine Yeast Urine Osmolality Ur Random Sodium Urine Test COVID-19 ([place]) COVID-19 [facility] Procedures Date of Service Date of Service: 10/23/20 Assessment & Plan Assessment and plan (1) Hyponatremia: Status: Acute Assessment and Plan: she has chronic hyponatremia now she comes in volume depleted with diarrhea N and V she has been drinking h20 likely she has underlying problem with free h20 excretion no exacerbated by vol dep (low U na) with ADH stimulation and only free h20 intake treatment is IV NS and KCL replacement (2) Nausea vomiting and diarrhea: Status: Acute (3) Hypovolemia: Status: Acute (4) Acute hypokalemia: Status: Acute (5) Urinary tract infection: Status: Acute (6) Elevated hemoglobin: Status: Acute (7) Hepatomegaly: Status: Acute Assessment and Plan: This is a 35-year-old female with past medical history of hypertension, history of alcohol abuse she reports currently is not drinking presents to the hospital with persistent nausea vomiting diarrhea and dizziness. # nausea vomiting diarrhea - possibly secondary to viral versus bacterial gastroenteritis - CT abdomen showing hepatic steatosis with no other significant abnormality - will rule out C diff - stool cultures - IV fluids - supportive measures with Zofran p.r.n. # hyponatremia -= mos likely secondary to hypovolemic hyponatremia - baseline sodium around 131, presents with sodium of 120, no neurological deficits - has decreased serum osmolality, increased urine osmolality with sodium less than 20 - nephrology consult, recommended NS at 120 cc an hour, decreased oral free water intake, - BMP q.6 hours # hypokalemia - secondary to diarrhea and vomiting - repleted - follow BMP # UTI - UA positive, symptomatic - will treat with ceftriaxone - follow cultures # elevated hemoglobin and ferritin - possibly hemoconcentrated - but given her CT findings of hepatomegaly as well as elevated ferritin will repeat hemoglobin, and obtain iron studies # hepatomegaly and severe steatosis - possibly secondary to her history of alcohol abuse - cannot rule out hemochromatosis given her elevated hemoglobin as well as ferritin - will obtain right upper quadrant ultrasound as well as iron studies DVT prophylaxis Lovenox Time Spent With Patient Time: Total time spent is greater than 50% in coordination of care (as documented) at patient's floor/unit and/or counseling patient: Progress Note: Quality Stroke Does the patient have a stroke diagnosis?: No
--- NOTE | 2020-10-23 07:59 | P.CONNP_ITS ---
History of Present Illness Reason for Consult Consult date: 10/23/20 Reason for consult: hyponatremia Chief Complaint Chief complaint: Hyponatremia, UTI, Hypokalemia Review of Systems Review of Systems Yes all other systems are reviewed and are negative [facility] Past Medical History Medical History (Updated 10/23/20 @ 06:38 by Agustín Aguillon MD) Anxiety and depression Hypertension Spina bifida Urinary retention Urinary retention Surgical History Surgical History Previous back surgery Social History Social History Household Members: Family Household Members Other:: lives with fiance and twin daughters Housing: House Do you presently have visiting nurse or other home services: No Alcohol intake: never Patient Tobacco Use Status: Current everyday Tobacco user Tobacco use type: Cigarette Cigarette Packs Per Day: 0.5 Cigarettes Per Day: 10 Smoked in Last 30 Days: Yes Patient Interested in Nicotine Replacement: No Patient Given Instructions on How to Stop Smoking: No Second Hand Smoke Exposure: No Use of substances other than those prescribed or required for medical reasons: No Currently Displaying Signs/Symptoms of Drug Intoxication Withdrawal: No Any prior treatment program specific to substance use: No Have you been hit, kicked, punched, or otherwise hurt by someone within the past year? If so, by whom?: No Do you feel safe in your current relationship?: Yes Is there a partner from a previous relationship who is making you feel unsafe now?: No Are you made to feel afraid or neglected: No Advance Directives: No Advance Directives on File: No Do you have thoughts of harming others: None Do you have a plan to hurt others: No Plan Recently lost weight without trying: No Eating poorly because of decreased appetite: No Nutrition Risks: Acute nausea or vomiting x1 week Patient : No : No Poor oral hygiene: No service: No Current occupational status: employed Meds Allergies Allergy/AdvReac Type Severity Reaction Status Date / Time No Known Allergies Allergy Verified 01/31/20 19:48 Active Medications: Current Medications Generic Name Dose Route Start Last Admin Trade Name Freq PRN Reason Stop Dose Admin Acetaminophen 650 mg 10/23/20 01:55 Acetaminophen 325 Mg Tablet PO Q6H PRN Pain, Mild (Pain Scale 1-3) Amlodipine Besylate 5 mg 10/23/20 09:00 10/23/20 07:47 Amlodipine Besylate 5 Mg Tablet PO Not Given DAILY [facility] Protocol Docusate Sodium 100 mg 10/23/20 01:55 Docusate Sodium 100 Mg Capsule PO DAILY PRN Constipation Enoxaparin Sodium 40 mg 10/23/20 01:55 10/23/20 02:48 Enoxaparin Sodium 40 Mg/0.4 Ml Syringe SUBCUT 40 mg Q24H ARELY Administration Sodium Chloride 1,000 mls @ 120 mls/hr 10/22/20 23:45 10/23/20 01:00 Ns IVCONT 120 mls/hr .Q8H20M ARELY Administration Ceftriaxone Sodium 1 gm/ 50 mls @ 100 mls/hr 10/24/20 00:00 Sodium Chloride IV Q24H [facility] Non-Formulary Medication 1 tab 10/23/20 09:00 Methenamine Hippurate PO BID [facility] Ondansetron HCl 4 mg 10/23/20 01:55 Ondansetron Hcl 4 Mg/2 Ml Vial IVPUSH Q8H PRN Nausea and Vomiting Sertraline HCl 100 mg 10/23/20 09:00 10/23/20 07:46 Sertraline Hcl 100 Mg Tablet PO 100 mg DAILY [facility] Administration Sodium Chloride 3 ml 10/23/20 08:00 10/23/20 07:48 0.9 % Sodium Chloride Flush 3 Ml Syringe IVFLUSH 3 ml QSHIFT [facility] Administration Topiramate 25 mg 10/23/20 09:00 10/23/20 07:47 Topiramate 25 Mg Tablet PO 25 mg BID [facility] Administration Trazodone HCl 25 mg 10/23/20 21:00 Trazodone Hcl 25 Mg Halftab PO BEDTIME [facility] Home Medications Medication Instructions Recorded Confirmed Last Taken Type trazodone 50 mg tablet 25 mg PO BEDTIME 01/31/20 10/23/20 10/22/20 History amlodipine 5 mg tablet 1 tab PO DAILY 10/22/20 10/22/20 10/22/20 History cranberry 400 mg capsule 1 cap PO BID 10/22/20 10/22/20 10/22/20 History methenamine hippurate 1 gram tablet 1 tab PO BID 10/22/20 10/22/20 10/22/20 History topiramate 25 mg tablet 1 tab PO BID 10/22/20 10/22/20 10/22/20 History Physical Exam Vital Signs: Last Vital Signs Temp 97 F 10/23/20 07:03 Pulse 87 10/23/20 07:47 Resp 20 10/23/20 07:03 BP 98/61 10/23/20 07:47 Pulse Ox 99 10/23/20 07:03 Body Mass Index 27.3 Const General: cooperative and no acute distress Orientation/consciousness: oriented to person, oriented to place and patient oriented x3 Limitations: no limitations HENMT Head: Yes normal to inspection, Yes normocephalic and Yes atraumatic Ears: external ears normal General nose exam: Normal external nose present Face and sinus: Yes normal facial exam Mouth: other (Very dry mucous membranes, enlarged time) Throat: Yes posterior oropharynx normal Eyes General: appearance normal, both eyes and all related structures Pupils: Equal, round and reactive pupils present Neck Neck: Yes normal visual inspection, Yes no lymphadenopathy, Yes trachea midline and Yes supple Chest Chest palpation & inspection: normal inspection of the chest and normal palpation of entire chest wall Resp Effort & Inspection: normal respiratory effort and able to speak in complete sentences Auscultation: clear to auscultation bilaterally Cardio Rate: regular rate Rhythm: regular rhythm Heart sounds: S1 normal heart sound present, S2 normal heart sound present and no murmurs GI Other: No tenderness, no rebound, no guarding Inspection: Yes normal to inspection Palpation (GI): Soft to palpation, nontender and no guarding Auscultation: normal bowel sounds General: Yes no CVA tenderness Back/Spine/Pelvis Back: no CVA tenderness Skin General skin exam: no rashes or lesions noted Neuro General: oriented to person, oriented to place and patient oriented x3 Cranial nerves: Yes CN's II-XII intact bilaterally and Yes Equal, round and reactive pupils present Cognition (Neuro): normal cognition Motor exam (neuro): 5/5 motor strength present throughout Extrem General: Yes normal to inspection and Yes no pedal edema Psych Appearance: grossly normal Speech and movement: Normal speech and movement present Affect: normal affect Attitude: cooperative Thought process: Normal thought process present Thought content: Normal thought content present Results Lab Results Result Diagrams: 10/23/20 06:43 10/23/20 06:43 Lab results: Chemistry 10/22/20 10/23/20 10/23/20 20:33 06:43 06:43 Sodium 120 L* 124 L Cancelled Potassium 2.4 L* 2.4 L* Cancelled Carbon Dioxide 28 30 H Cancelled BUN 19 H D 15 Cancelled Creatinine 0.74 0.63 Cancelled Calcium 9.6 D 9.0 D Cancelled Phosphorus 3.0 Hematology 10/22/20 10/23/20 10/23/20 20:33 06:43 06:43 WBC 14.7 H Cancelled 9.8 Hgb 22.8 H D Cancelled 13.7 D Plt Count 263 Cancelled 159 L D Urinalysis 10/22/20 20:33 Urine Color DARK YELLOW Urine Appearance HAZY Urine pH 6.0 Ur Specific [place] 1.025 Urine Protein 1+ H Urine Glucose (UA) NEG Urine Ketones 40 Urine Blood 1+ H Urine Nitrite NEG Ur Leukocyte Esterase 1+ H Urine RBC 1-4 Urine WBC 10-14 H Ur Squamous Epith Cells TRACE Urine Studies 10/22/20 20:33 Urine Osmolality 380 Assessment and Plan (1) Hyponatremia: Status: Acute she has chronic hyponatremia now she comes in volume depleted with diarrhea N and V she has been drinking h20 likely she has underlying problem with free h20 excretion no exacerbated by vol dep (low U na) with ADH stimulation and only free h20 intake treatment is IV NS and KCL replacement (2) Nausea vomiting and diarrhea: Status: Acute (3) Hypovolemia: Status: Acute (4) Acute hypokalemia: Status: Acute (5) Urinary tract infection: Qualifiers: Urinary tract infection type: site unspecified Status: Acute (6) Elevated hemoglobin: Status: Acute (7) Hepatomegaly: Status: Acute This is a 35-year-old female with past medical history of hypertension, history of alcohol abuse she reports currently is not drinking presents to the hospital with persistent nausea vomiting diarrhea and dizziness. # nausea vomiting diarrhea - possibly secondary to viral versus bacterial gastroenteritis - CT abdomen showing hepatic steatosis with no other significant abnormality - will rule out C diff - stool cultures - IV fluids - supportive measures with Zofran p.r.n. # hyponatremia -= mos likely secondary to hypovolemic hyponatremia - baseline sodium around 131, presents with sodium of 120, no neurological defic its - has decreased serum osmolality, increased urine osmolality with sodium less than 20 - nephrology consult, recommended NS at 120 cc an hour, decreased oral free water intake, - BMP q.6 hours # hypokalemia - secondary to diarrhea and vomiting - repleted - follow BMP # UTI - UA positive, symptomatic - will treat with ceftriaxone - follow cultures # elevated hemoglobin and ferritin - possibly hemoconcentrated - but given her CT findings of hepatomegaly as well as elevated ferritin will re peat hemoglobin, and obtain iron studies # hepatomegaly and severe steatosis - possibly secondary to her history of alcohol abuse - cannot rule out hemochromatosis given her elevated hemoglobin as well as ferritin - will obtain right upper quadrant ultrasound as well as iron studies DVT prophylaxis Lovenox Procedures Date of Service Date of Service: 10/23/20
--- NOTE | 2020-10-23 09:09 | MHC.CM.PN ---
pt lives alone in [facility]. she reports that she is independent in her care. 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 she does have freinds/family that live in the area and can help her if she needs it, this will include a ride home at dc. pt denies the need for vna at dc. dc plan is home no svcs cm to cont. to follow.
[2020-10-23] MEDS: Potassium Chloride/H20 10 MEQ/100 ML PIGGYBACK 100 MEQ IV ×4 (10:08→15:07)
--- NOTE | 2020-10-23 10:42 | PC.NURSE ---
Dr. Joseph had ordered KCL replacements along with Dr. Mccormick as well. Dr. Mccormick notified of duplicate orders. He wanted 10meq in 100cc x 2 bags and 40 po x 4 doses. Patient refuses liquid po dose that he had ordered-waiting on tab order. Also, 5 minutes after 10meq IVPB infusing, patient insisted that I stop it due to pain. MD notified. suggested adding the 20meq to a liter bag instead because primary line is NS at 120cc anyway. waiting on new orders to execute.
[2020-10-23 11:09] LABS: CDiff Gene PCR NEGATIVE (Negative)
[2020-10-23] MEDS: ondansetron HCL 4 MG/2 ML VIAL IVPUSH (12:10)
[2020-10-23] MEDS: Potassium Chloride ER 20 MEQ TAB.ER.PRT PO ×4 (12:10→21:42)
[2020-10-23 12:37] LABS: Anion Gap 21 (12-20); Blood Urea Nitrogen 15 mg/dL (9-16); Calcium 8.8 mg/dL (8.4-10.2); Carbon Dioxide 29 mmol/L (22-29); Chloride 76 mmol/L (96-108); Creatinine Clr Calc Pharmacy 95.6; Estimated Glomerular Filt Rate > 60; Glucose Random 156 mg/dL (60-115); Potassium 2.5 mmol/L (3.3-5.1); Sodium 123 mmol/L (135-145)
[2020-10-23] MEDS: Loperamide HCl 2 MG CAPSULE PO ×2 (14:01→16:54)
[2020-10-23 14:31] LABS: Hematocrit 39.2 % (37-47); Red Blood Count 4.14 X10*6/uL (4.20-5.50); White Blood Count 11.3 X10*3/uL (4.8-10.8)
[2020-10-23 14:32] LABS: Mean Corpuscular Hemoglobin 36.2 pg (27.0-33.0); Mean Corpuscular Volume 94.7 fL (80-98)
[2020-10-23 14:33] LABS: Mean Corpuscular HGB Conc 38.3 g/dl (31.0-35.0); Platelet Count 179 X10*3/uL (160-400)
--- NOTE | 2020-10-23 14:34 | PC.NURSE ---
hematology called regarding labs from yesterday.they are correcting them,Dr Mccormick notified by this RN via [facility] connect
[2020-10-23 15:01] LABS: Amphetamine Screen Urine Not Detected (Not Detect); Barbiturates, Urine Not Detected (Not Detect); Benzodiazepines Screen Urine Not Detected (Not Detect); Cannabinoid Screen Urine POSITIVE (Not Detect); Cocaine Screen Urine Not Detected (Not Detect); Fentanyl, urine POSITIVE (Not Detect); Opiate Screen Urine Not Detected (Not Detect); Phencyclidine Screen Urine Not Detected (Not Detect)
[2020-10-23 19:23] LABS: Anion Gap 18 (12-20); Blood Urea Nitrogen 13 mg/dL (9-16); Calcium 8.3 mg/dL (8.4-10.2); Carbon Dioxide 23 mmol/L (22-29); Chloride 85 mmol/L (96-108); Creatinine Clr Calc Pharmacy 106.8; Estimated Glomerular Filt Rate > 60; Glucose Random 148 mg/dL (60-115); Potassium 3.2 mmol/L (3.3-5.1); Sodium 123 mmol/L (135-145)
[2020-10-23] MEDS: traZODone HCL 25 MG HALFTAB PO (21:42)
[2020-10-24] VITALS (8 sets, daily range): BP systolic 98–135; BP diastolic 55–95; PULSE 78–98; RESP 16–18; TEMP 36.4–37.3; O2SAT 99–100
[2020-10-24 06:43] LABS: Anion Gap 14 (12-20); Blood Urea Nitrogen 11 mg/dL (9-16); Calcium 8.4 mg/dL (8.4-10.2); Carbon Dioxide 27 mmol/L (22-29); Chloride 92 mmol/L (96-108); Creatinine Clr Calc Pharmacy 112.4; Estimated Glomerular Filt Rate > 60; Glucose Random 120 mg/dL (60-115); Potassium 2.9 mmol/L (3.3-5.1); Sodium 130 mmol/L (135-145)
[2020-10-24 06:47] LABS: Hematocrit 30.5 % (37-47); Hemoglobin 11.4 g/dl (12.0-16.0); Mean Corpuscular HGB Conc 37.4 g/dl (31.0-35.0); Mean Corpuscular Hemoglobin 36.8 pg (27.0-33.0); Mean Corpuscular Volume 98.4 fL (80-98); Mean Platelet Volume 10.5 fL (9.4-12.3); Platelet Count 138 X10*3/uL (160-400); Red Cell Distribution Width 10.9 % (11.0-16.0); White Blood Count 6.8 X10*3/uL (4.8-10.8)
[2020-10-24] MEDS: Potassium Chloride ER 20 MEQ TAB.ER.PRT PO ×2 (08:18→20:37)
[2020-10-24] MEDS: Topiramate 25 MG TABLET PO ×2 (08:19→20:38)
[2020-10-24] MEDS: Sertraline HCL 100 MG TABLET PO (08:19)
[2020-10-24] MEDS: Spironolactone 25 MG TABLET 50 MG PO ×2 (08:30→17:31)
[2020-10-24 11:31] LABS: Anion Gap 14 (12-20); Blood Urea Nitrogen 12 mg/dL (9-16); Calcium 8.1 mg/dL (8.4-10.2); Carbon Dioxide 24 mmol/L (22-29); Chloride 96 mmol/L (96-108); Creatinine Clr Calc Pharmacy 114.4; Estimated Glomerular Filt Rate > 60; Glucose Random 89 mg/dL (60-115); Potassium 3.6 mmol/L (3.3-5.1); Sodium 130 mmol/L (135-145)
[2020-10-24] MEDS: Loperamide HCl 2 MG CAPSULE PO (11:41)
[2020-10-24 12:51] LABS: Potassium Urine Random 50.2 mmol/L
[2020-10-24 12:55] LABS: Creatinine Urine 97.29 mg/dL
[2020-10-24 13:06] LABS: Osmolality Urine 434 mosm/kg (373-1093)
--- NOTE | 2020-10-24 13:39 | P.PNIM_ITS ---
Subjective Subjective Date of Service: 10/24/20 Interval History: the patient was seen and evaluated this morning Laying in bed, feels better today as a nausea and vomiting decreased signi ficantly Sodium improving slowly Denies any fever, chills or shortness of breath No reported other overnight events. Systemic review: No fever, chills but reporting weakness No chest pain, palpitation No shortness of breath or coughing No abdominal pain, still having nausea or vomiting No urinary symptoms No any rash or wounds Physical Exam Vital Signs: Vital Signs: Last Vital Signs Temp 97.6 F 10/24/20 11:21 Pulse 98 10/24/20 11:21 Resp 18 10/24/20 11:21 BP 135/95 H 10/24/20 11:21 Pulse Ox 100 10/24/20 11:21 Body Mass Index 27.3 Const: Other: Constitutional : Alert, oriented, not in distress Neck : Normal inspection, Supple Cardiovascular : RRR, S1 S2, no lower extremity edema Respiratory : Good bilateral air entry, no crackles, wheezes or rhonchi Gastrointestinal: soft, lax, Normal bowel sounds, Non tender Skin : Warm, Dry Neurological : Alert & oriented x3, No focal deficit Objective Data Current Medications Generic Name Dose Route Start Last Admin Trade Name Freq PRN Reason Stop Dose Admin Acetaminophen 650 mg 10/23/20 01:55 Acetaminophen 325 Mg Tablet PO Q6H PRN Pain, Mild (Pain Scale 1-3) Docusate Sodium 100 mg 10/23/20 01:55 Docusate Sodium 100 Mg Capsule PO DAILY PRN Constipation Enoxaparin Sodium 40 mg 10/23/20 01:55 10/23/20 23:27 Enoxaparin Sodium 40 Mg/0.4 Ml Syringe SUBCUT 40 mg Q24H ARELY Administration Sodium Chloride 1,000 mls @ 75 mls/hr 10/22/20 23:45 10/24/20 08:19 Ns IVCONT Not Given .[id number] ARELY Ceftriaxone Sodium 1 gm/ 50 mls @ 100 mls/hr 10/24/20 00:00 10/23/20 23:47 Sodium Chloride IV Infused Q24H ARELY Infusion Potassium Chloride/Sodium Chloride 20 meq in 1,000 mls @ 150 mls/hr 10/24/20 07:45 10/24/20 08:12 IVCONT 150 mls/hr .Q6H40M ARELY Administration Loperamide HCl 2 mg 10/23/20 13:29 10/24/20 11:41 Loperamide Hcl 2 Mg Capsule PO 2 mg Q4H PRN Administration Diarrhea Non-Formulary Medication 1 tab 10/23/20 09:00 Methenamine Hippurate PO BID [facility] Ondansetron HCl 4 mg 10/23/20 01:55 10/23/20 12:10 Ondansetron Hcl 4 Mg/2 Ml Vial IVPUSH 4 mg Q8H PRN Administration Nausea and Vomiting Potassium Chloride 20 meq 10/23/20 09:00 10/24/20 08:18 Potassium Chloride Er 20 Meq Tab.Er.Prt PO 20 meq BID ARE[facility] Administration Sertraline HCl 100 mg 10/23/20 09:00 10/24/20 08:19 Sertraline Hcl 100 Mg Tablet PO 100 mg DAILY [facility] Administration Sodium Chloride 3 ml 10/23/20 08:00 10/24/20 08:10 0.9 % Sodium Chloride Flush 3 Ml Syringe IVFLUSH Not Given QSHIFT [facility] Spironolactone 50 mg 10/24/20 09:00 10/24/20 08:30 Spironolactone 25 Mg Tablet PO 50 mg BID@0900,1800 [facility] Administration Protocol Topiramate 25 mg 10/23/20 09:00 10/24/20 08:19 Topiramate 25 Mg Tablet PO 25 mg BID [facility] Administration Trazodone HCl 25 mg 10/23/20 21:00 10/23/20 21:42 Trazodone Hcl 25 Mg Halftab PO 25 mg BEDTIME ARE[facility] Administration Labs CBC & Chem 7: 10/24/20 05:28 10/24/20 10:45 Labs: Laboratory Results - last 24 hr 10/22/20 10/23/20 10/23/20 20:33 06:43 14:09 MCV 94.7 MCH 36.2 H MCHC 38.3 H RDW Plt Count 179 D 159 L MPV Absolute Nucleated RBC Nucleated RBC % (auto) Anion Gap Estim Creat Clear Calc Estimated GFR Random Glucose Calcium Urine Osmolality Ur Random Sodium Ur Random Potassium Urine Creatinine Urine Opiates Screen Not Detected Urine Fentanyl Screen POSITIVE H Ur Barbiturates Screen Not Detected Ur Phencyclidine Scrn Not Detected Ur Amphetamines Screen Not Detected U Benzodiazepines Scrn Not Detected Urine Cocaine Screen Not Detected U Marijuana (THC) Screen POSITIVE H 10/23/20 10/24/20 10/24/20 18:44 05:28 05:28 MCV 98.4 H MCH 36.8 H MCHC 37.4 H RDW 10.9 L Plt Count 138 L MPV 10.5 Absolute Nucleated RBC 0.000 Nucleated RBC % (auto) 0.0 Anion Gap 18 14 Estim Creat Clear Calc 106.8 112.4 Estimated GFR > 60 > 60 Random Glucose 148 H 120 H Calcium 8.3 L 8.4 Urine Osmolality Ur Random Sodium Ur Random Potassium Urine Creatinine Urine Opiates Screen Urine Fentanyl Screen Ur Barbiturates Screen Ur Phencyclidine Scrn Ur Amphetamines Screen U Benzodiazepines Scrn Urine Cocaine Screen U Marijuana (THC) Screen 10/24/20 10/24/20 10/24/20 10:45 12:26 12:26 MCV MCH MCHC RDW Plt Count MPV Absolute Nucleated RBC Nucleated RBC % (auto) Anion Gap 14 Estim Creat Clear Calc 114.4 Estimated GFR > 60 Random Glucose 89 Calcium 8.1 L Urine Osmolality 434 Ur Random Sodium 48.0 Ur Random Potassium 50.2 Urine Creatinine Urine Opiates Screen Urine Fentanyl Screen Ur Barbiturates Screen Ur Phencyclidine Scrn Ur Amphetamines Screen U Benzodiazepines Scrn Urine Cocaine Screen U Marijuana (THC) Screen 10/24/20 12:26 MCV MCH MCHC RDW Plt Count MPV Absolute Nucleated RBC Nucleated RBC % (auto) Anion Gap Estim Creat Clear Calc Estimated GFR Random Glucose Calcium Urine Osmolality Ur Random Sodium Ur Random Potassium Urine Creatinine 97.29 Urine Opiates Screen Urine Fentanyl Screen Ur Barbiturates Screen Ur Phencyclidine Scrn Ur Amphetamines Screen U Benzodiazepines Scrn Urine Cocaine Screen U Marijuana (THC) Screen Microbiology Microbiology Results: Microbiology 10/23/20 08:00 Stool Culture - Preliminary Stool Culture in progress. 10/22/20 20:33 Urine Culture - Final Urine clean catch - Urine muñoz top Escherichia coli 10/23/20 01:00 Blood Culture - Preliminary Blood - Venous No growth after 24 hours. 10/23/20 01:00 Blood Culture - Preliminary Blood - Venous No growth after 24 hours. Assessment and Plan (1) Nausea vomiting and diarrhea: Status: Acute (2) Hypovolemia: Status: Acute (3) Acute hypokalemia: Status: Acute (4) Hyponatremia: Status: Acute (5) Urinary tract infection: Status: Acute Assessment and Plan: This is a 35-year-old female with past medical history of hypertension, history of alcohol abuse she reports currently is not drinking presents to the hospital with persistent nausea vomiting diarrhea and dizziness. # nausea vomiting diarrhea secondary to viral versus bacterial gastroenteritis CT abdomen showing hepatic steatosis with no other significant abnormality -ve C diff Pending stool cultures IV fluids supportive measures with Zofran p.r.n. # hyponatremia Secondary to dehydration Improved to 130 Continue IVF Nephrology input appreciated Monitor BMP # hypokalemia repleted follow BMP # UTI UA positive, symptomatic Continue ceftriaxone Pending cultures # elevated hemoglobin and ferritin hemoconcentrated Improved # hepatomegaly and severe steatosis possibly secondary to her history of alcohol abuse cannot rule out hemochromatosis given her elevated hemoglobin Elevated ferritin likely acute phase reactant right upper quadrant ultrasound showing steatosis but no focal lesions iron studies not suggestive of hemochromatosis DVT prophylaxis Lovenox Quality Stroke Does the patient have a stroke diagnosis?: No VTE Prior VTE?: No VTE Risk Level:: Medical - moderate - high VTE Device Contraindication: Treatment Not Indicated VTE Drug Contraindication: N/A - Med Ordered
[2020-10-24 17:47] LABS: Anion Gap 13 (12-20); Blood Urea Nitrogen 10 mg/dL (9-16); Calcium 7.9 mg/dL (8.4-10.2); Carbon Dioxide 19 mmol/L (22-29); Chloride 98 mmol/L (96-108); Creatinine Clr Calc Pharmacy 123.2; Estimated Glomerular Filt Rate > 60; Glucose Random 105 mg/dL (60-115); Potassium 3.3 mmol/L (3.3-5.1); Sodium 127 mmol/L (135-145)
[2020-10-24 18:21] LABS: Anion Gap 12 (12-20); Blood Urea Nitrogen 11 mg/dL (9-16); Calcium 8.1 mg/dL (8.4-10.2); Carbon Dioxide 20 mmol/L (22-29); Chloride 99 mmol/L (96-108); Creatinine Clr Calc Pharmacy 120.9; Estimated Glomerular Filt Rate > 60; Glucose Random 105 mg/dL (60-115); Potassium 3.3 mmol/L (3.3-5.1); Sodium 128 mmol/L (135-145)
[2020-10-24] MEDS: traZODone HCL 25 MG HALFTAB PO (20:38)
[2020-10-24] MEDS: cefTRIAXone sodium 1 GM in 0.9 % Sodium Chloride 50 ML IV (23:32)
[2020-10-24 23:52] LABS: Anion Gap 13 (12-20); Blood Urea Nitrogen 9 mg/dL (9-16); Calcium 7.9 mg/dL (8.4-10.2); Carbon Dioxide 19 mmol/L (22-29); Chloride 102 mmol/L (96-108); Creatinine Clr Calc Pharmacy 116.5; Estimated Glomerular Filt Rate > 60; Glucose Random 104 mg/dL (60-115); Potassium 3.9 mmol/L (3.3-5.1); Sodium 130 mmol/L (135-145)
[2020-10-25] VITALS (8 sets, daily range): BP systolic 106–124; BP diastolic 70–81; PULSE 79–93; RESP 16–20; TEMP 36.4–37.2; O2SAT 95–100
[2020-10-25] MEDS: Enoxaparin Sodium 40 MG/0.4 ML SYRINGE SUBCUT (02:52)
[2020-10-25] MEDS: Loperamide HCl 2 MG CAPSULE PO ×2 (03:54→13:07)
[2020-10-25 06:16] LABS: Alanine Aminotransferase 254 U/L (0-31); Alkaline Phosphatase 245 U/L (39-117); Anion Gap 13 (12-20); Aspartate Amino Transferase 411 U/L (5-31); Bilirubin Direct 0.7 mg/dL (0.0-0.5); Bilirubin Total 0.8 mg/dL (0.0-1.0); Blood Urea Nitrogen 9 mg/dL (9-16); Calcium 7.8 mg/dL (8.4-10.2); Carbon Dioxide 18 mmol/L (22-29); Chloride 103 mmol/L (96-108); Creatinine Clr Calc Pharmacy 130.7; Estimated Glomerular Filt Rate > 60; Glucose Random 104 mg/dL (60-115); Potassium 3.5 mmol/L (3.3-5.1); Sodium 130 mmol/L (135-145); Total Protein 5.1 g/dL (6.5-8.0)
--- NOTE | 2020-10-25 08:16 | P.PNNP_ITS ---
Subjective Subjective Date of Service: 10/25/20 Interval history: the patient was seen and evaluated this morning Laying in bed, feels better today as a nausea and vomiting decreased signi ficantly Sodium improving slowly Denies any fever, chills or shortness of breath No reported other overnight events. Systemic review: No fever, chills but reporting weakness No chest pain, palpitation No shortness of breath or coughing No abdominal pain, still having nausea or vomiting No urinary symptoms No any rash or wounds Physical Exam Vital Signs: Vital Signs: Last Vital Signs Temp 98.9 F 10/25/20 07:27 Pulse 83 10/25/20 07:27 Resp 18 10/25/20 07:27 BP 106/71 10/25/20 07:27 Pulse Ox 97 10/25/20 07:27 Body Mass Index 27.3 Const: Other: Constitutional : Alert, oriented, not in distress Neck : Normal inspection, Supple Cardiovascular : RRR, S1 S2, no lower extremity edema Respiratory : Good bilateral air entry, no crackles, wheezes or rhonchi Gastrointestinal: soft, lax, Normal bowel sounds, Non tender Skin : Warm, Dry Neurological : Alert & oriented x3, No focal deficit General: cooperative and no acute distress Orientation/consciousness: oriented to person, oriented to place and patient oriented x3 Limitations: no limitations HENMT: Head: Yes normal to inspection, Yes normocephalic and Yes atraumatic Ears: external ears normal General nose exam: Normal external nose present Face and sinus: Yes normal facial exam Mouth: other (Very dry mucous membranes, enlarged time) Throat: Yes posterior oropharynx normal Eyes: General: appearance normal, both eyes and all related structures Pupils: Equal, round and reactive pupils present Neck: Neck: Yes normal visual inspection, Yes no lymphadenopathy, Yes trachea midline and Yes supple Chest: Chest palpation & inspection: normal inspection of the chest and normal palpation of entire chest wall Resp: Effort & Inspection: normal respiratory effort and able to speak in comp lete sentences Auscultation: clear to auscultation bilaterally Cardio: Rate: regular rate Rhythm: regular rhythm Heart sounds: S1 normal heart sound present, S2 normal heart sound present and no murmurs GI: Other: No tenderness, no rebound, no guarding Inspection: Yes normal to inspection Palpation (GI): Soft to palpation, nontender and no guarding Auscultation: normal bowel sounds : General: Yes no CVA tenderness Back/Spine/Pelvis: Back: no CVA tenderness Skin: General skin exam: no rashes or lesions noted Neuro: General: oriented to person, oriented to place and patient oriented x3 Cranial nerves: Yes CN's II-XII intact bilaterally and Yes Equal, round and reactive pupils present Cognition (Neuro): normal cognition Motor exam (neuro): 5/5 motor strength present throughout Extrem: General: Yes normal to inspection and Yes no pedal edema Psych: Appearance: grossly normal Speech and movement: Normal speech and movement present Affect: normal affect Attitude: cooperative Thought process: Normal thought process present Thought content: Normal thought co ntent present Objective Data Labs CBC & Chem 7: 10/24/20 05:28 10/25/20 05:08 Labs: Laboratory Results - last 24 hr 10/24/20 10/24/20 10/24/20 10:45 12:26 12:26 Sodium 130 L Potassium 3.6 D Chloride 96 Carbon Dioxide 24 Anion Gap 14 BUN 12 Creatinine 0.56 Estim Creat Clear Calc 114.4 Estimated GFR > 60 Random Glucose 89 Calcium 8.1 L Total Bilirubin Direct Bilirubin AST ALT Alkaline Phosphatase Total Protein Albumin Urine Osmolality 434 Ur Random Sodium 48.0 Ur Random Potassium 50.2 Urine Creatinine 10/24/20 10/24/20 10/24/20 12:26 17:13 17:47 Sodium 127 L 128 L Potassium 3.3 3.3 Chloride 98 99 Carbon Dioxide 19 L 20 L Anion Gap 13 12 BUN 10 11 Creatinine 0.52 0.53 Estim Creat Clear Calc 123.2 120.9 Estimated GFR > 60 > 60 Random Glucose 105 105 Calcium 7.9 L 8.1 L Total Bilirubin Direct Bilirubin AST ALT Alkaline Phosphatase Total Protein Albumin Urine Osmolality Ur Random Sodium Ur Random Potassium Urine Creatinine 97.29 10/24/20 10/25/20 23:09 05:08 Sodium 130 L 130 L Potassium 3.9 3.5 Chloride 102 103 Carbon Dioxide 19 L 18 L Anion Gap 13 13 BUN 9 9 Creatinine 0.55 0.49 L Estim Creat Clear Calc 116.5 130.7 Estimated GFR > 60 > 60 Random Glucose 104 104 Calcium 7.9 L 7.8 L Total Bilirubin 0.8 Direct Bilirubin 0.7 H AST 411 H ALT 254 H Alkaline Phosphatase 245 H D Total Protein 5.1 L D Albumin 3.0 L D Urine Osmolality Ur Random Sodium Ur Random Potassium Urine Creatinine Microbiology Microbiology Results: Microbiology 10/23/20 01:00 Blood - Venous Blood Culture - Preliminary No growth after 48 hours. 10/23/20 01:00 Blood - Venous Blood Culture - Preliminary No growth after 48 hours. 10/23/20 08:00 Stool Stool Culture - Preliminary Culture in progress. 10/22/20 20:33 Urine clean catch - Urine muñoz top Urine Culture - Final Escherichia coli Procedures Date of Service Date of Service: 10/25/20 Assessment & Plan Assessment and plan (1) Nausea vomiting and diarrhea: Status: Acute (2) Hypovolemia: Status: Acute Assessment and Plan: euvolemic (3) Acute hypokalemia: Status: Acute Assessment and Plan: the urine K is high so some element of K wasting (4) Hyponatremia: Status: Acute Assessment and Plan: improved urine na now up so resolved vol dep (5) Urinary tract infection: Status: Acute Assessment and Plan: This is a 35-year-old female with past medical history of hypertension, history of alcohol abuse she reports currently is not drinking presents to the hospital with persistent nausea vomiting diarrhea and dizziness. # hepatomegaly and severe steatosis possibly secondary to her history of alcohol abuse Time Spent With Patient Time: Total time spent is greater than 50% in coordination of care (as documented) at patient's floor/unit and/or counseling patient: Progress Note: Quality Stroke Does the patient have a stroke diagnosis?: No
[2020-10-25] MEDS: Spironolactone 25 MG TABLET 50 MG PO ×2 (09:43→18:19)
[2020-10-25] MEDS: Potassium Chloride ER 20 MEQ TAB.ER.PRT PO ×2 (09:43→21:02)
[2020-10-25] MEDS: Topiramate 25 MG TABLET PO ×2 (09:43→21:02)
[2020-10-25] MEDS: 0.9 % Sodium Chloride Flush 3 ML SYRINGE IVFLUSH ×2 (09:43→21:03)
[2020-10-25] MEDS: Sertraline HCL 100 MG TABLET PO (09:43)
--- NOTE | 2020-10-25 12:52 | P.CNGI_ITS ---
History of Present Illness Data of Consult Service Date: 10/25/20 Requesting physician: Aracelis Mccormick Primary Care Provider: Di Martinez MD HPI Reason for consult: abnormal LFTs 35 YF with hypertension, hx of ETOH abuse, spina bifida with urinary retention, anxiety and depression seen at [facility] on 10/22/20 with nausea vomiting and diarrhea, weakness and dizziness: HPI Narrative: 35-year-old female who presents emergency department for evaluation of weakness, dizziness, nausea, vomiting and diarrhea.? Patient states she has been sick for approximately 1 week.? She states that she has been vomiting 4 to 5 times a day.? She states she has had 2-3 episodes of loose diarrheal stool per day.? She states that she has been only able to drink water and she drinks at least 5 bottles of water per day.? She denied fever, chills, chest pain, shortness of breath, , frequency, urgency or dysuria.? She states she is feeling very weak and fatigued. Patient notes improvement in nausea vomiting and and has been able to eat some food. She still has diarrhea with 3-4 liquid/pasty bowel movements a day. She denies associated fever chills or sweating. Prior to onset of above symptoms she had normal bowel movements with 1-2 formed stools a day. Patient denies symptoms of heartburn, dysphagia, black stools or rectal bleeding. Patient denies past history of hepatitis or liver disease. Patient denies major cardiac or pulmonary problems, loud snoring or sleep apnea Denies being on chronic anticoagulation. Patient admits to taking 2 tablets of acetaminophen (375 mg) 5 days a week prior to leaving for work to prevent headaches. Patient admits to drinking 4-5 glasses of wine at night for the past 4 years. Admits to drinking the day upto the day prior to admission Patient denies known family history of liver disease, colon polyps, colon cancer or other GI malignancies. Pt lives with her Fiance and has 5 yr old twins. 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 IMAGING STUDIES: 10/23/[address] SCAN SHOWED: Hepatomegaly with severe hepatic steatosis. No biliary ductal dilatation. Possible sludge filling the gallbladder lumen. Chronic bladder wall thickening. Review of Systems Constitutional: Constitutional: Reports fatigue, Denies fever(s), Reports headache(s), Reports poor appetite, Reports weakness and Denies weight loss Eyes: Eyes: Denies eye discharge and Denies irritation ENT: Reports Normal hearing present, Denies dysphagia, Denies dizziness and Reports headache(s) Cardiovascular: Cardiovascular: Denies chest pain, Denies leg edema and Denies dyspnea on exertion Respiratory: Respiratory: Denies cough, Denies dyspnea on exertion and Denies wheezing Gastrointestinal: Gastrointestinal: Denies abdominal pain, Denies change in bowel habits, Denies dysphagia, Denies heartburn, Reports diarrhea, Reports nausea and Reports vomiting Genitourinary: Genitourinary: Denies difficulty voiding and Denies dysuria Musculoskeletal: Musculoskeletal: Denies back pain and Denies arthralgias Integumentary/Breasts: Skin/Breast: Denies pruritus, Denies rash and Denies jaundice Neurologic: Reports Normal hearing present, Denies Abnormal speech present, Denies dizziness, Reports headache(s), Denies seizure-like activity and Reports weakness Psychiatric: Psychiatric: Reports anxiety, Reports depression and Denies panic attacks Endocrine: Endocrine: Denies cold intolerance, Reports fatigue, Denies flushing and Denies heat intolerance Hematologic/Lymphatic: Hematologic/Lymphatic: Denies easy bleeding and Denies easy bruising Allergic/Immunologic: Allergic/Immunologic: Denies wheezing PMFSH Past Medical History Medical History (Updated 10/25/20 @ 16:23 by Jennifer Nair MD) Anxiety and depression Hypertension Spina bifida Urinary retention Urinary retention Surgical History Surgical History (Updated 10/25/20 @ 16:18 by Jennifer Nair MD) Previous back surgery Status post Social History Social History Household Members: Family Household Members Other:: lives with fiance and twin daughters Housing: House Do you presently have visiting nurse or other home services: No Alcohol intake: never Patient Tobacco Use Status: Current everyday Tobacco user Tobacco use type: Cigarette Cigarette Packs Per Day: 0.5 Cigarettes Per Day: 10 Smoked in Last 30 Days: Yes Patient Interested in Nicotine Replacement: No Patient Given Instructions on How to Stop Smoking: No Second Hand Smoke Exposure: No Use of substances other than those prescribed or required for medical reasons: No Currently Displaying Signs/Symptoms of Drug Intoxication Withdrawal: No Any prior treatment program specific to substance use: No Have you been hit, kicked, punched, or otherwise hurt by someone within the past year? If so, by whom?: No Do you feel safe in your current relationship?: Yes Is there a partner from a previous relationship who is making you feel unsafe now?: No Are you made to feel afraid or neglected: No Advance Directives: No Advance Directives on File: No Do you have thoughts of harming others: None Do you have a plan to hurt others: No Plan Recently lost weight without trying: No Eating poorly because of decreased appetite: No Nutrition Risks: Acute nausea or vomiting x1 week Patient : No : No Poor oral hygiene: No service: No Current occupational status: employed Meds Allergies Allergy/AdvReac Type Severity Reaction Status Date / Time No Known Allergies Allergy Verified 01/31/20 19:48 Active Medications: Current Medications Generic Name Dose Route Start Last Admin Trade Name Freq PRN Reason Stop Dose Admin Acetaminophen 650 mg 10/23/20 01:55 Acetaminophen 325 Mg Tablet PO Q6H PRN Pain, Mild (Pain Scale 1-3) Docusate Sodium 100 mg 10/23/20 01:55 Docusate Sodium 100 Mg Capsule PO DAILY PRN Constipation Enoxaparin Sodium 40 mg 10/23/20 01:55 10/25/20 02:52 Enoxaparin Sodium 40 Mg/0.4 Ml Syringe SUBCUT 40 mg Q24H ARELY Administration Ceftriaxone Sodium 1 gm/ 50 mls @ 100 mls/hr 10/24/20 00:00 10/25/20 00:10 Sodium Chloride IV Infused Q24H ARELY Infusion Loperamide HCl 2 mg 10/23/20 13:29 10/25/20 03:54 Loperamide Hcl 2 Mg Capsule PO 2 mg Q4H PRN Administration Diarrhea Non-Formulary Medication 1 tab 10/23/20 09:00 Methenamine Hippurate PO BID ARELY Ondansetron HCl 4 mg 10/23/20 01:55 10/23/20 12:10 Ondansetron Hcl 4 Mg/2 Ml Vial IVPUSH 4 mg Q8H PRN Administration Nausea and Vomiting Potassium Chloride 20 meq 10/23/20 09:00 10/25/20 09:43 Potassium Chloride Er 20 Meq Tab.Er.Prt PO 20 meq BID ARELY Administration Sertraline HCl 100 mg 10/23/20 09:00 10/25/20 09:43 Sertraline Hcl 100 Mg Tablet PO 100 mg DAILY ARELY Administration Sodium Chloride 3 ml 10/23/20 08:00 10/25/20 09:43 0.9 % Sodium Chloride Flush 3 Ml Syringe IVFLUSH 3 ml QSHIFT ARELY Administration Spironolactone 50 mg 10/24/20 09:00 10/25/20 09:43 Spironolactone 25 Mg Tablet PO 50 mg BID@0900,1800 [facility] Administration Protocol Topiramate 25 mg 10/23/20 09:00 10/25/20 09:43 Topiramate 25 Mg Tablet PO 25 mg BID ARELY Administration Trazodone HCl 25 mg 10/23/20 21:00 10/24/20 20:38 Trazodone Hcl 25 Mg Halftab PO 25 mg BEDTIME ARELY Administration Home Medications Medication Instructions Recorded Confirmed Last Taken Type trazodone 50 mg tablet 25 mg PO BEDTIME 01/31/20 10/23/20 10/22/20 History amlodipine 5 mg tablet 1 tab PO DAILY 10/22/20 10/22/20 10/22/20 History cranberry 400 mg capsule 1 cap PO BID 10/22/20 10/22/20 10/22/20 History methenamine hippurate 1 gram tablet 1 tab PO BID 10/22/20 10/22/20 10/22/20 History topiramate 25 mg tablet 1 tab PO BID 10/22/20 10/22/20 10/22/20 History Physical Exam Vital Signs: Vital Signs: Last Vital Signs Temp 98.0 F 10/25/20 11:46 Pulse 79 10/25/20 11:46 Resp 18 10/25/20 11:46 BP 124/70 10/25/20 11:46 Pulse Ox 95 10/25/20 11:46 Body Mass Index 27.3 Const: General: healthy appearing, no acute distress and ill appearing Nutritional Appearance: overweight Orientation/consciousness: patient oriented x3 Limitations: no limitations HENMT: Head: Yes normal to inspection Ears: hearing grossly normal bilaterally Mouth: Normal oral and palatal mucosa present Eyes: Sclerae: sclerae normal Pupils: Equal, round and reactive pupils present Neck: Neck: Yes normal visual inspection Chest: Chest palpation & inspection: normal inspection of the chest Resp: Effort & Inspection: normal respiratory effort Auscultation: clear to auscultation bilaterally Cardio: Palpation: normal PMI Rate: regular rate Rhythm: regular rhythm Heart sounds: S1 normal heart sound present, S2 normal heart sound present and no murmurs GI: Palpation (GI): Soft to palpation, nontender and Hepatomegaly present (liver palpable 3 cms below RCM) Auscultation: normal bowel sounds Rectal Exam - Female: deferred Skin: General skin exam: no rashes or lesions noted Neuro: General: patient oriented x3, gait normal and moves all extremities Cranial nerves: Yes Equal, round and reactive pupils present and Yes Normal hearing present Speech: No Abnormal speech present Psych: Appearance: grossly normal Mental Status: mental status grossly normal Results Labs CBC & Chem 7: 10/24/20 05:28 10/25/20 05:08 Labs: BMP 10/24/20 10/24/20 10/24/20 17:13 17:47 23:09 Sodium 127 L 128 L 130 L Potassium 3.3 3.3 3.9 Chloride 98 99 102 Carbon Dioxide 19 L 20 L 19 L BUN 10 11 9 Creatinine 0.52 0.53 0.55 Calcium 7.9 L 8.1 L 7.9 L 10/25/20 05:08 Sodium 130 L Potassium 3.5 Chloride 103 Carbon Dioxide 18 L BUN 9 Creatinine 0.49 L Calcium 7.8 L Liver Function 10/25/20 Range/Units 05:08 Total Bilirubin 0.8 (0.0-1.0) mg/dL Direct Bilirubin 0.7 H (0.0-0.5) mg/dL AST 411 H (5-31) U/L ALT 254 H (0-31) U/L Alkaline Phosphatase 245 H D (39-117) U/L Albumin 3.0 L D (3.5-5.0) g/dL Microbiology Microbiology Results: Microbiology 10/23/20 08:00 Stool Stool Culture - Preliminary Normal so far. 10/23/20 01:00 Blood - Venous Blood Culture - Preliminary No growth after 48 hours. 10/23/20 01:00 Blood - Venous Blood Culture - Preliminary No growth after 48 hours. 10/22/20 20:33 Urine clean catch - Urine muñoz top Urine Culture - Final Escherichia coli Assessment and Plan (1) Hepatomegaly: Status: Acute (2) Nausea vomiting and diarrhea: Status: Acute (3) Elevated LFTs: Status: Acute 35 YF with hypertension, hx of ETOH abuse, spina bifida with urinary retention, anxiety and depression seen at [facility] on 10/22/20 with nausea vomiting and diarrhea, weakness and dizziness. Pt recalls eating some food from the [employer] the day before she became ill and noted nausea 20 min after eating the food. Nausea, vomiting and diarrhea is likely due to viral or bacterial gastroenteritis and appears to be resolving. Stool C diff toxin was negative. Admission labs show elevated LFTs (AST > ALT) which are worse today. Pt admits to ongoing ETOH abuse until the day prior to admission. Of note patient has had elevated LFTs since 2019 with an elevated PT of 1.2 Elevated LFTs are likely due to alcohol related fatty liver or acute Hepatitis A. Hepatitis serologies are pending. Pt has marked elevation of Ferritin levels > 6000 which can be related to hepatic inflammation from ETOH versus hemochromatosis RECOMMENDATIONS: 1. Await results of hepatitis profile and genetic testing for hemochromatosis. 2. If hepatitis serologies are negative, check H[place], ceruloplasmin, alpha 1 antitrypsin, smooth muscle antibody and antimitochondrial antibody. 3. Check celiac serologies, prothrombin time, Vitamin B 12 and folate levels - added to am labs 4. Stool for wbc and cultures - ordered 5. Pt was advised to abstain from ETOH use. Procedures Date of Service Date of Service: 10/25/20
--- NOTE | 2020-10-25 13:06 | P.PNIM_ITS ---
Subjective Subjective Date of Service: 10/25/20 Interval History: the patient was seen and evaluated this morning Laying in bed, feels better today as a nausea and vomiting decreased signi ficantly Sodium improved to 130 Still having diarrhea episodes Liver enzymes little elevated today Denies any fever, chills or shortness of breath No reported other overnight events. Systemic review: No fever, chills but reporting weakness No chest pain, palpitation No shortness of breath or coughing No abdominal pain, still having nausea or vomiting No urinary symptoms No any rash or wounds Physical Exam Vital Signs: Vital Signs: Last Vital Signs Temp 98.0 F 10/25/20 11:46 Pulse 79 10/25/20 11:46 Resp 18 10/25/20 11:46 BP 124/70 10/25/20 11:46 Pulse Ox 95 10/25/20 11:46 Body Mass Index 27.3 Const: Other: Constitutional : Alert, oriented, not in distress, no jaundice Neck : Normal inspection, Supple Cardiovascular : RRR, S1 S2, no lower extremity edema Respiratory : Good bilateral air entry, no crackles, wheezes or rhonchi Gastrointestinal: soft, lax, Normal bowel sounds, Non tender Skin : Warm, Dry Neurological : Alert & oriented x3, No focal deficit Objective Data Current Medications Generic Name Dose Route Start Last Admin Trade Name Freq PRN Reason Stop Dose Admin Acetaminophen 650 mg 10/23/20 01:55 Acetaminophen 325 Mg Tablet PO Q6H PRN Pain, Mild (Pain Scale 1-3) Docusate Sodium 100 mg 10/23/20 01:55 Docusate Sodium 100 Mg Capsule PO DAILY PRN Constipation Enoxaparin Sodium 40 mg 10/23/20 01:55 10/25/20 02:52 Enoxaparin Sodium 40 Mg/0.4 Ml Syringe SUBCUT 40 mg Q24H ARELY Administration Ceftriaxone Sodium 1 gm/ 50 mls @ 100 mls/hr 10/24/20 00:00 10/25/20 00:10 Sodium Chloride IV Infused Q24H ARELY Infusion Loperamide HCl 2 mg 10/23/20 13:29 10/25/20 03:54 Loperamide Hcl 2 Mg Capsule PO 2 mg Q4H PRN Administration Diarrhea Non-Formulary Medication 1 tab 10/23/20 09:00 Methenamine Hippurate PO BID ARELY Ondansetron HCl 4 mg 10/23/20 01:55 10/23/20 12:10 Ondansetron Hcl 4 Mg/2 Ml Vial IVPUSH 4 mg Q8H PRN Administration Nausea and Vomiting Potassium Chloride 20 meq 10/23/20 09:00 10/25/20 09:43 Potassium Chloride Er 20 Meq Tab.Er.Prt PO 20 meq BID ARELY Administration Sertraline HCl 100 mg 10/23/20 09:00 10/25/20 09:43 Sertraline Hcl 100 Mg Tablet PO 100 mg DAILY ARELY Administration Sodium Chloride 3 ml 10/23/20 08:00 10/25/20 09:43 0.9 % Sodium Chloride Flush 3 Ml Syringe IVFLUSH 3 ml QSHIFT ARELY Administration Spironolactone 50 mg 10/24/20 09:00 10/25/20 09:43 Spironolactone 25 Mg Tablet PO 50 mg BID@0900,1800 ARELY Administration Protocol Topiramate 25 mg 10/23/20 09:00 10/25/20 09:43 Topiramate 25 Mg Tablet PO 25 mg BID ARELY Administration Trazodone HCl 25 mg 10/23/20 21:00 10/24/20 20:38 Trazodone Hcl 25 Mg Halftab PO 25 mg BEDTIME ARELY Administration Labs CBC & Chem 7: 10/24/20 05:28 10/25/20 05:08 Labs: Laboratory Results - last 24 hr 10/24/20 10/24/20 10/24/20 12:26 17:13 17:47 Anion Gap 13 12 Estim Creat Clear Calc 123.2 120.9 Estimated GFR > 60 > 60 Random Glucose 105 105 Calcium 7.9 L 8.1 L Total Bilirubin Direct Bilirubin AST ALT Alkaline Phosphatase Total Protein Albumin Urine Osmolality 434 10/24/20 10/25/20 23:09 05:08 Anion Gap 13 13 Estim Creat Clear Calc 116.5 130.7 Estimated GFR > 60 > 60 Random Glucose 104 104 Calcium 7.9 L 7.8 L Total Bilirubin 0.8 Direct Bilirubin 0.7 H AST 411 H ALT 254 H Alkaline Phosphatase 245 H D Total Protein 5.1 L D Albumin 3.0 L D Urine Osmolality Microbiology Microbiology Results: Microbiology 10/23/20 08:00 Stool Culture - Preliminary Stool Normal so far. 10/23/20 01:00 Blood Culture - Preliminary Blood - Venous No growth after 48 hours. 10/23/20 01:00 Blood Culture - Preliminary Blood - Venous No growth after 48 hours. Assessment and Plan (1) Hepatomegaly: Status: Acute (2) Acute hypokalemia: Status: Acute (3) Hyponatremia: Status: Acute (4) Urinary tract infection: Status: Acute (5) Nausea vomiting and diarrhea: Status: Acute (6) Transaminitis: Status: Acute Assessment and Plan: This is a 35-year-old female with past medical history of hypertension, history of alcohol abuse she reports currently is not drinking presents to the hospital with persistent nausea vomiting diarrhea and dizziness. # nausea vomiting diarrhea secondary to viral versus bacterial gastroenteritis CT abdomen showing hepatic steatosis with no other significant abnormality -ve C diff Pending stool cultures IV fluids supportive measures with Zofran p.r.n. # hyponatremia Secondary to dehydration Improved to 130 Discontinue IVF Nephrology input appreciated Monitor BMP # hypokalemia repleted follow BMP # UTI UA positive, symptomatic Continue ceftriaxone D4 E.Coli on cultures # elevated hemoglobin and ferritin hemoconcentrated Improved # hepatomegaly and severe steatosis # transaminitis possibly secondary to her history of alcohol abuse right upper quadrant ultrasound showing steatosis but no focal lesions Pending hepatitis profile Elevated ferritin likely acute phase reactant as Rest of iron studies low to within normal iron studies not suggestive of hemochromatosis To get GI eval DVT prophylaxis Lovenox Quality Stroke Does the patient have a stroke diagnosis?: No VTE Prior VTE?: No VTE Risk Level:: Medical - moderate - high VTE Device Contraindication: Treatment Not Indicated VTE Drug Contraindication: N/A - Med Ordered
[2020-10-25] MEDS: traZODone HCL 25 MG HALFTAB PO (21:02)
[2020-10-26] MEDS: cefTRIAXone sodium 1 GM in 0.9 % Sodium Chloride 50 ML IV (00:42)
[2020-10-26] MEDS: Enoxaparin Sodium 40 MG/0.4 ML SYRINGE SUBCUT (00:42)
[2020-10-26 03:23] VITALS: BP 97/66; PULSE 83; RESP 18; TEMP 37.1; O2SAT 100
[2020-10-26 04:43] LABS: HBc Num1 0.05 S/CO (0.00-0.79); HBsAGNum1 0.18 S/CO (0.00-0.99); Hepatitis B Core Antibody Nonreactive (Nonreactive); Hepatitis B Surface Antigen Negative (Negative); ~HepC Num1 0.21 S/CO (0.00-0.79); ~Hepatitis C Antibody Nonreactive (Nonreactive)
[2020-10-26 05:15] LABS: HBS Num1 0.19 mIU/mL (0-7.99); ~Hepatitis B Surface Antibody NONREACTIVE (Nonreactive)
[2020-10-26 06:59] VITALS: BP 108/80; PULSE 83; RESP 18; TEMP 36.2; O2SAT 100
[2020-10-26 07:03] LABS: Prothrombin Time 11.9 SEC (9.9-13.0)
[2020-10-26 07:07] LABS: Anion Gap 13 (12-20); Blood Urea Nitrogen 5 mg/dL (9-16); Calcium 8.4 mg/dL (8.4-10.2); Carbon Dioxide 18 mmol/L (22-29); Chloride 105 mmol/L (96-108); Creatinine Clr Calc Pharmacy 139.2; Estimated Glomerular Filt Rate > 60; Glucose Random 102 mg/dL (60-115); Sodium 132 mmol/L (135-145)
[2020-10-26 07:15] LABS: Gamma Glutamyl Transpeptidase 664 U/L (7-33)
[2020-10-26 07:40] LABS: Vitamin B12 400 pg/mL (200-900)
[2020-10-26 08:33] LABS: Alanine Aminotransferase 263 U/L (0-31); Albumin Level 3.2 g/dL (3.5-5.0); Alkaline Phosphatase 266 U/L (39-117); Aspartate Amino Transferase 281 U/L (5-31); Bilirubin Direct 0.6 mg/dL (0.0-0.5); Bilirubin Total 1.1 mg/dL (0.0-1.0); Total Protein 5.5 g/dL (6.5-8.0)
[2020-10-26 09:20] VITALS: BP 108/80; PULSE 83
[2020-10-26] MEDS: Topiramate 25 MG TABLET PO (09:20)
[2020-10-26] MEDS: Spironolactone 25 MG TABLET 50 MG PO (09:20)
[2020-10-26] MEDS: Sertraline HCL 100 MG TABLET PO (09:20)
[2020-10-26] MEDS: Potassium Chloride ER 20 MEQ TAB.ER.PRT PO (09:21)
[2020-10-26] MEDS: 0.9 % Sodium Chloride Flush 3 ML SYRINGE IVFLUSH (09:22)
[2020-10-26 11:03] VITALS: BP 106/71; PULSE 82; RESP 18; TEMP 37.1; O2SAT 100
[2020-10-26] MEDS: Folic Acid 1 MG TABLET PO (12:04)
--- NOTE | 2020-10-26 12:07 | P.DS_ITS ---
DS: Providers Provider Date of Service: 10/26/20 Date of admission: 10/23/20 00:14 Primary care physician: Di Martinez MD Consults: 10/23/20 01:55 Consult to Nephrology Routine Consulting Provider: [facility] Reason for consultation: hyponatremia Has provider been notified: Yes 10/25/20 08:23 Consult to Gastroenterology Routine Consulting Provider: Jennifer Nair Reason for consultation: Trasnaminitis, N\V\D, Steatosis liver, elevated Ferretin DS: Diagnosis Discharge Diagnosis (1) Hepatomegaly: Status: Acute (2) Nausea vomiting and diarrhea: Status: Acute (3) Transaminitis: Status: Acute (4) Hypovolemia: Status: Acute (5) Acute hypokalemia: Status: Acute (6) Hyponatremia: Status: Acute (7) Urinary tract infection: Status: Acute DS: Medications Discharge Medications Home Medications: Home Medications Medication Instructions Recorded Confirmed trazodone 50 mg tablet 25 mg PO BEDTIME 01/31/20 10/23/20 cranberry 400 mg capsule 1 cap PO BID 10/22/20 10/22/20 methenamine hippurate 1 gram tablet 1 tab PO BID 10/22/20 10/22/20 topiramate 25 mg tablet 1 tab PO BID 10/22/20 10/22/20 Previous Rx's Medication Instructions Recorded sertraline 100 mg tablet 100 mg PO DAILY #0 tab 02/03/20 cefuroxime axetil 250 mg tablet 250 mg PO BID #8 tab 10/26/20 folic acid 1 mg tablet 1 mg PO DAILY 30 Days #30 tab 10/26/20 spironolactone 25 mg tablet 50 mg PO BID@0900,1800 30 Days tab 10/26/20 DS: Summary Hospital Course Hospital Course: Admission note HPI Medical history of alcohol abuse currently reports not drinking, history of depression, spina bifida, hypertension who presents to the hospital with complaints of dizziness.? Patient reports that she has been having significant amount of nausea, vomiting on diarrhea for the past 1 week.? She reports 3-4 episodes of vomiting daily as well as 2-3 episodes of diarrhea daily.? Nonbloody watery diarrhea.? She has significantly reduced her p.o. intake due to the vomiting.? She reports that she has been trying to stay hydrated with water but throws up most of the water intake.? Reports no abdominal pain, no chest pain, no shortness of breath.? She reports that this has happened to her before but not this severely.? She has a episcopalian headache that is been going on for few days, she reports that the dizziness is also causing her blurry vision, denies any confusion. She reports urgency, dysuria, as well as frequency.? No fever or chills. On arrival to the ED patient hemodynamically stable with no abnormal vitals Labs on arrival significant? for WBC count of 14.7, hemoglobin of 22.8, he matocrit 58.1, 120 with a baseline around 131, potassium of 2.4, chloride of 65, BUN of 19, creatinine of 0.74, osmolality serum, 243, total bili of 2.3, AST of 212, ALT of 162, ferritin of 6853, UA that is positive for leukocyte Estrace as well as WBC, urine osmolality of 380, urine random sodium less than [address] shows hepatomegaly, with severe hepatic steatosis, no biliary ductal dilatation, possible sludge filling the gallbladder lumen Hospital course The patient was admitted for evaluation of nausea and vomiting. CT of the abdomen was consistent with hepatic steatosis with no other abnormalities. Found to have UTI which was treated with IV antibiotics as urine culture grew E coli. Blood work was significant for hyponatremia and hypokalemia which both were replaced. Hyponatremia likely chronically on the lower normal from alcoholism. Both improved before discharge. Evaluated by Nephrology who started on spironolactone twice daily for any evidence of potassium loss in urine. Concern was raised with hepatomegaly MH and elevated liver enzymes raising the concern for possible infectious etiology. hepatitis B and C were negative while hepatitis-A still pending. Hemochromatosis DNA was sent and still pending along with other blood test that will be followed outpatient by plugging machine operator Dr. Nair. Time Spent with Patient Time attestation: Total time spent providing and/or coordinating discharge services: Discharge coordination time: Greater than 30 minutes Quality: Stroke Does the patient have a stroke diagnosis?: No Physical Exam Vital Signs: Vital Signs: Last Vital Signs Temp 98.8 F 10/26/20 11:03 Pulse 82 10/26/20 11:03 Resp 18 10/26/20 11:03 BP 106/71 10/26/20 11:03 Pulse Ox 100 10/26/20 11:03 Body Mass Index 27.3 Const: Other: Constitutional : Alert, oriented, not in distress, no jaundice Neck : Normal inspection, Supple Cardiovascular : RRR, S1 S2, no lower extremity edema Respiratory : Good bilateral air entry, no crackles, wheezes or rhonchi Gastrointestinal: soft, lax, Normal bowel sounds, Non tender Skin : Warm, Dry Neurological : Alert & oriented x3, No focal deficit DS: Data Data Completed and Pending Labs on day of discharge: Laboratory Results - last 24 hr 10/25/20 10/26/20 10/26/20 05:08 06:21 06:21 PT 11.9 INR 1.0 Sodium Potassium Chloride Carbon Dioxide Anion Gap BUN Creatinine Estim Creat Clear Calc Estimated GFR Random Glucose Calcium Total Bilirubin Direct Bilirubin GGT AST ALT Alkaline Phosphatase Total Protein Albumin Vitamin B12 400 Folate 3.0 L Hep Bs Antigen Negative Hep Bs Antibody NONREACTIVE Hep B Core Total Ab Nonreactive Hepatitis C Ab (EIA) Nonreactive 10/26/20 10/26/20 06:21 06:21 PT INR Sodium 132 L Potassium 4.0 Chloride 105 Carbon Dioxide 18 L Anion Gap 13 BUN 5 L Creatinine 0.46 L Estim Creat Clear Calc 139.2 Estimated GFR > 60 Random Glucose 102 Calcium 8.4 D Total Bilirubin 1.1 H Direct Bilirubin 0.6 H GGT 664 H AST 281 H ALT 263 H Alkaline Phosphatase 266 H Total Protein 5.5 L Albumin 3.2 L Vitamin B12 Folate Hep Bs Antigen Hep Bs Antibody Hep B Core Total Ab Hepatitis C Ab (EIA) Preliminary micro results at discharge 10/23/20 01:00 Blood Culture - Preliminary Blood - Venous No growth after 48 hours. 10/23/20 01:00 Blood Culture - Preliminary Blood - Venous No growth after 48 hours. Discharge Plan Discharge Patient Disposition: Home, Self-Care Discharge Diagnosis: UTI Nausea, vomiting Elevated liver enzymes Referrals: Di Martinez MD [Primary Care Provider] - 1 Week Discharge Medications: New spironolactone 25 mg Tablet 50 mg PO BID@0900,1800 30 Days RF: 0 folic acid 1 mg Tablet 1 mg PO DAILY 30 Days Qty: 30 RF: 0 cefuroxime axetil 250 mg tablet 250 mg PO BID Qty: 8 RF: 0 Continued trazodone 50 mg tablet 25 mg PO BEDTIME RF: 0 sertraline 100 mg tablet 100 mg PO DAILY Qty: 0 RF: 0 topiramate 25 mg tablet 1 tab PO BID RF: 0 methenamine hippurate 1 gram tablet 1 tab PO BID RF: 0 cranberry 400 mg capsule 1 cap PO BID RF: 0 Discontinued amlodipine 5 mg tablet 1 tab PO DAILY RF: 0 Discharge Orders: Discharge Order (Routine); Ordered 10/26/20 Ordered By: Aracelis Mccormick Diet: advance to usual diet Activity on Discharge: As tolerated Stand Alone Forms: Patient Portal Discharge page Care Plan Goals: Read below Health Concerns: Read below Plan of Treatment: You were admitted to the hospital for evaluation of nausea and vomiting. Found to have a urinary tract infection. Treated with IV antibiotic and nausea medication with good response over the course of hospital stay. Your noticed also to have low sodium and potassium levels. Evaluated by gaming surveillance observer with some changes of your home medications. Your electrolytes improved back to normal. Liver enzymes were noticed to be elevated. Images showed fatty liver. Evaluated by plugging machine operator Dr. Nair who would like you to follow-up with her in the office as some of the blood test we send are still pending. Assessment: Continue Ceftin as prescribed Start folic acid Discontinue amlodipine and start spironolactone To follow-up with Dr. Nair in the office to review the rest of your pending blood tests for your liver enzymes abnormality
--- NOTE | 2020-10-26 12:10 | MHC.CM.PN ---
PT CLEARED TO DC HOME TODAY WITH NO SERVICES
[2020-10-26 15:05] VITALS: BP 116/77; PULSE 80; RESP 20; TEMP 36.4; O2SAT 100
[2020-10-26 23:10] LABS: Transferrin 127 mg/dL (188-341)
[2020-10-28 08:10] LABS: Hepatitis A Antibody IgM 0.13 Index (0-0.79); ~Hepatitis A Antibody IgM Nonreactive (Nonreactive)
[2020-10-28 12:36] LABS: Anti Nuclear Antibody Screen NEGATIVE (NEGATIVE)
[2020-10-28 13:47] LABS: Immunoglobulin A 324 mg/dL (47-310)
[2020-10-28 16:12] LABS: Transglutaminase Ab IgG 1 U/mL; Transglutaminase IgA 1 U/mL
== END 2020-10-26 15:56 | disposition home or self-care (01) | DRG 463 ==
LOC: HO.ED 10-23 00:11 → HO.EDOVER 10-23 00:24 → HO.IMC 10-23 00:47
PROVIDERS: Internal Medicine Gastroenterology; Internal Medicine Nephrology; Admitting Provider Internal Medicine; Emergency Provider Emergency Medicine Emergency Medical Services; PCP Internal Medicine Nephrology; Visit Provider Student in an Organized Health Care Education/Training Program
DX: N39.0 Urinary tract infection, site not specified (principal); E87.1 Hypo-osmolality and hyponatremia; K70.0 Alcoholic fatty liver; F10.10 Alcohol abuse, uncomplicated; E86.1 Hypovolemia; E83.119 Hemochromatosis, unspecified; B96.20 Unspecified Escherichia coli [E. coli] as the cause of diseases classified elsewhere; R11.2 Nausea with vomiting, unspecified; F32.9 Major depressive disorder, single episode, unspecified; F17.210 Nicotine dependence, cigarettes, uncomplicated; E87.6 Hypokalemia; Q05.9 Spina bifida, unspecified; Z20.822 Contact with and (suspected) exposure to COVID-19; Z71.6 Tobacco abuse counseling; Z79.899 Other long term (current) drug therapy
CPT/HCPCS: 36415; 74176; 76705; 80048; 80053; 80076; 80307; 81001; 81025; 81256; 82607; 82728; 82746; 82784; 82977; 83516; 83540; 83615; 83735; 83930; 83935; 84100; 84133; 84300; 84466; 85025; 85027; 85610; 86038; 86039; 86704; 86706; 86709; 86803; 87040; 87045; 87046; 87086; 87088; 87186; 87340; 87493; 87635; 93005; 96365; 96375; 99284; 99291; J0696; J1650; J2405; J2765

== ENCOUNTER 2020-10-30 16:18 | Emergency (ER) | payer OTHER, SELFPAY ==
[2020-10-30 16:36] VITALS: BP 118/71; PULSE 89; RESP 18; TEMP 36.2; O2SAT 99; BMI 27.3
[2020-10-30 17:07] LABS: MANUAL DIFF FLAG NO
[2020-10-30 17:36] LABS: Basophils Percent Auto 0.4 % (0-2); Eosinophils Absolute Auto 0.2 X10*3/uL (0.0-0.4); Eosinophils Percent Auto 2.3 % (0-4); Hematocrit 32.5 % (37-47); Imm Gran Abs Auto 0.09 X10*3/uL (0.00-0.03); Imm Gran Pct Auto 1.2 % (0.0-0.4); Lymphocytes Absolute Auto 0.7 X10*3/uL (1.2-4.9); Mean Corpuscular HGB Conc 36.9 g/dl (31.0-35.0); Mean Corpuscular Volume 97.6 fL (80-98); Mean Platelet Volume 9.7 fL (9.4-12.3); Monocytes Absolute Auto 1.1 X10*3/uL (0.1-1.2); Monocytes Percent Auto 15.1 % (2-11); NRBC Pct Auto 0.3 /100WBC (0.0-0.2); Neutrophils Absolute Auto 5.3 X10*3/uL (2.0-8.3); Platelet Count 196 X10*3/uL (160-400); Red Blood Count 3.33 X10*6/uL (4.20-5.50); Red Cell Distribution Width 11.8 % (11.0-16.0); White Blood Count 7.4 X10*3/uL (4.8-10.8)
[2020-10-30 17:45] LABS: Anion Gap 15 (12-20); Blood Urea Nitrogen 9 mg/dL (9-16); Calcium 8.8 mg/dL (8.4-10.2); Carbon Dioxide 21 mmol/L (22-29); Chloride 100 mmol/L (96-108); Creatinine Clr Calc Pharmacy 130.7; Estimated Glomerular Filt Rate > 60; Glucose Random 129 mg/dL (60-115); Potassium 2.3 mmol/L (3.3-5.1); Sodium 134 mmol/L (135-145)
--- NOTE | 2020-10-30 19:34 | ED_ITS ---
HPI - Female Genitourinary General Chief complaint: Urogenital-Female Stated complaint: havent been able to self cath in 36 hours Time Seen by Provider: 10/30/20 19:32 Source: patient Mode of arrival: ambulatory Limitations: no limitations History of Present Illness HPI Narrative: 35-year-old female with spina bifida that require self urinary catheterization to obtain her urine, patient is unable to self-catheterize herself all day today. No fever, no chills. Also patient found to be hypokalemic. Related Data Home Medications Medication Instructions Recorded Confirmed trazodone 50 mg tablet 25 mg PO BEDTIME 01/31/20 10/23/20 cranberry 400 mg capsule 1 cap PO BID 10/22/20 10/22/20 methenamine hippurate 1 gram tablet 1 tab PO BID 10/22/20 10/22/20 topiramate 25 mg tablet 1 tab PO BID 10/22/20 10/22/20 Previous Rx's Medication Instructions Recorded sertraline 100 mg tablet 100 mg PO DAILY #0 tab 02/03/20 cefuroxime axetil 250 mg tablet 250 mg PO BID #8 tab 10/26/20 folic acid 1 mg tablet 1 mg PO DAILY 30 Days #30 tab 10/26/20 spironolactone 25 mg tablet 50 mg PO BID@0900,1800 30 Days tab 10/26/20 potassium chloride 20 mEq 20 meq PO DAILY #30 tab 10/30/20 tablet,extended release (K-Tab) Allergies Allergy/AdvReac Type Severity Reaction Status Date / Time No Known Allergies Allergy Verified 01/31/20 19:48 Review of Systems Review of Systems: All other systems are reviewed and are negative Constitutional: Reports as per HPI and Reports no additional constitutional complaints Eyes: Reports as per HPI and Reports no additional eye complaints Reports system reviewed and no additional complaints, except as documented Cardiovascular: Reports as per HPI and Reports no additional cardiovascular complaints Respiratory: Reports as per HPI and Reports no additional respiratory complaints Gastrointestinal: Reports as per HPI and Reports no additional gastrointestinal complaints Genitourinary: Reports no additional female genitourinary complaints Musculoskeletal: Reports no additional musculoskeletal complaints Skin/Breast: Reports system reviewed and no additional complaints, except as docu Psychiatric: Reports no additional psychiatric complaints Endocrine: Reports no additional endocrine complaints Hematologic/Lymphatic: Reports no additional hematologic/lymphatic complaints Allergic/Immunologic: Reports no additional allergic/immunologic complaints Reports system reviewed and no additional complaints, except as documented and Reports Abnormal speech present [facility] Past Medical History Medical History Anxiety and depression Hypertension Spina bifida Urinary retention Urinary retention Surgical History Previous back surgery Status post Social History Social History Household Members: Family Household Members Other:: lives with fiance and twin daughters Housing: House Do you presently have visiting nurse or other home services: No Alcohol intake: never Patient Tobacco Use Status: Current everyday Tobacco user Tobacco use type: Cigarette Cigarette Packs Per Day: 0.5 Cigarettes Per Day: 10 Second Hand Smoke Exposure: No Advance Directives: Yes Advance Directives Information Provided: Yes Advance Directives on File: No service: No Current occupational status: employed Physical Exam 2 Vital Signs: Vital Signs: Last Vital Signs Temp 97.1 F 10/30/20 16:36 Pulse 89 10/30/20 20:00 Resp 18 10/30/20 20:00 BP 118/71 10/30/20 20:00 Pulse Ox 99 10/30/20 20:00 Body Mass Index 27.3 Vital signs have been reviewed as appeared to be correct. Blood pressure normal. Heart rate normal. Respiration rate normal. Temperature normal. Oxygen saturation normal. Appearance: Alert. Oriented X3. No acute distress. Head: Normal external exam. Normocephalic. Atraumatic. No Arechiga signs noted. No raccoon eyes noted Eyes: PERRLA. EOMI. Conjunctiva and sclera normal. Eyelids normal. ENT: TM's Normal. Pharynx normal. Uvula midline. Moist mucous membranes. No trismus noted. No drooling noted. No muffled voice noted. Neck: Normal inspection. Neck supple. FROM. No adenopathy. Thyroid Normal. No meningeal signs. No neck mass noted. CVS: Normal heart rate and rhythm. Heart sound normal. No murmurs noted. Pulses normal throughout. Respiratory: No respiratory distress. Painless inspiration. Breath sounds normal. No wheezes/rales/rhonchi noted. Chest nontender. No accessory muscle usage noted or decreased air movement noted. Abdomen: Soft and nontender. Bowel sounds normal in all 4 quadrants. No distention noted. No organomegaly noted. No visible injury noted. Back: No CVA tenderness. Full range of motion noted. Skin: Skin warm and dry. Normal skin color. Normal skin turgor. No rashes/lesions/lacerations noted. Extremities: No lower extremity edema. Extremities exhibit normal range of motion. Extremities nontender. Neuro: Oriented X 3. Cranial nerve exam: II-XII are grossly intact No motor deficit. No sensory deficit. Reflexes normal. Course Course Course Narrative: Assessment and plan. 35-year-old female with spina bifida that require self catheterization for urination, patient had difficulty catheterizing herself today. Able to insert Lambert catheter patient agreed to keep the Lambert catheter until she sees a urologist next week. Hypokalemia with no hypokalemic EKG changes, patient declined chest pain, potassium was repleted orally, patient was instructed to take potassium daily. [facility] - Female Genitourinary Lab Data Attestation: I reviewed the patient's lab results. Result diagrams: 10/30/20 16:54 10/30/20 16:54 Labs: Lab Results 10/30/20 10/30/20 10/30/20 Range/Units 16:54 16:54 20:57 WBC 7.4 (4.8-10.8) X10*3/uL RBC 3.33 L (4.20-5.50) X10*6/uL Hgb 12.0 (12.0-16.0) g/dl Hct 32.5 L (37-47) % MCV 97.6 (80-98) fL MCH 36.0 H (27.0-33.0) pg MCHC 36.9 H (31.0-35.0) g/dl RDW 11.8 (11.0-16.0) % Plt Count 196 D (160-400) X10*3/uL MPV 9.7 (9.4-12.3) fL Immature Gran % (Auto) 1.2 H (0.0-0.4) % Neut % (Auto) 72.0 (45-73) % Lymph % (Auto) 9.0 L (20-40) % Denali % (Auto) 15.1 H (2-11) % Eos % (Auto) 2.3 (0-4) % Baso % (Auto) 0.4 (0-2) % Lymph # (Auto) 0.7 L (1.2-4.9) X10*3/uL Denali # (Auto) 1.1 (0.1-1.2) X10*3/uL Eos # (Auto) 0.2 (0.0-0.4) X10*3/uL Baso # (Auto) 0.0 (0.0-0.2) X10*3/uL Abs Immat Gran (auto) 0.09 H (0.00-0.03) X10*3/uL Absolute Neuts (auto) 5.3 (2.0-8.3) X10*3/uL Absolute Nucleated RBC 0.020 H (0.0-0.012) X10*3/uL Nucleated RBC % (auto) 0.3 H (0.0-0.2) /100WBC Sodium 134 L (135-145) mmol/L Potassium 2.3 L* D (3.3-5.1) mmol/L Chloride 100 (96-108) mmol/L Carbon Dioxide 21 L (22-29) mmol/L Anion Gap 15 (12-20) BUN 9 D (9-16) mg/dL Creatinine 0.49 L (0.5-1.4) mg/dL Estim Creat Clear Calc 130.7 Estimated GFR > 60 Random Glucose 129 H (60-115) mg/dL Calcium 8.8 (8.4-10.2) mg/dL Urine Color YELLOW Urine Appearance CLEAR Urine pH 6.5 (5.0-8.0) Ur Specific Nadeau 1.010 (1.005-1.025) Urine Protein NEG (NEG-TRACE) MG/DL Urine Glucose (UA) NEG (NEG) MG/DL Urine Ketones 15 (NEG) MG/DL Urine Blood NEG (NEG) Urine Nitrite NEG (NEG) Ur Leukocyte Esterase NEG (NEG) Discharge Plan Discharge Clinical Impression: Encounter for Lambert catheter replacement, Acute hypokalemia Patient Disposition: Home, Self-Care Instructions: Hypokalemia (ED), Lambert Catheter Placement and Care (ED) Prescriptions: New potassium chloride [K-Tab] 20 mEq tablet extended release 20 meq PO DAILY Qty: 30 RF: 0 No Action trazodone 50 mg tablet 25 mg PO BEDTIME RF: 0 sertraline 100 mg tablet 100 mg PO DAILY Qty: 0 RF: 0 topiramate 25 mg tablet 1 tab PO BID RF: 0 methenamine hippurate 1 gram tablet 1 tab PO BID RF: 0 cranberry 400 mg capsule 1 cap PO BID RF: 0 spironolactone 25 mg Tablet 50 mg PO BID@0900,1800 30 Days RF: 0 folic acid 1 mg Tablet 1 mg PO DAILY 30 Days Qty: 30 RF: 0 cefuroxime axetil 250 mg tablet 250 mg PO BID Qty: 8 RF: 0 Referrals: Marc Bradshaw MD [Physician] - 1 week (To take Lambert catheter out.) Di Martinez MD [Primary Care Provider] - 2 days
--- NOTE | 2020-10-30 19:37 | ECG_ITS ---
Test Reason : MEDICAL Blood Pressure : / mmHG Vent. Rate : 062 BPM Atrial Rate : 062 BPM P-R Int : 172 ms QRS Dur : 084 ms QT Int : 456 ms P-R-T Axes : 073 066 091 degrees QTc Int : 462 ms Normal sinus rhythm ST & T wave abnormality, consider anterolateral ischemia Prolonged QT Abnormal ECG When compared with ECG of 22-OCT-2020 21:51, Vent. rate has decreased BY 36 BPM T wave inversion no longer evident in Inferior leads QT has shortened Referred By: Héctor Rob Electronically Signed By:JUAN PABLO MALAGON
[2020-10-30 20:00] VITALS: BP 118/71; PULSE 89; RESP 18; O2SAT 99
[2020-10-30] MEDS: KCl 10 mEq in 5% Dex/0.45% Sod 10 MEQ/1,000 ML IV.SOLN 42 MEQ IVCONT (20:59)
[2020-10-30 21:08] LABS: Glucose Urine UA NEG (NEG); Leukocyte Esterase Urine NEG (NEG); Nitrite Urine NEG (NEG); PH 6.5 (5.0-8.0); Urine Blood NEG (NEG); Urine Ketones 15 MG/DL (NEG); Urine Protein NEG (NEG-TRACE)
[2020-10-30 21:13] LABS: Appearance Urine CLEAR; Color Urine YELLOW
[2020-10-30 21:51] LABS: UPreg QC Valid YES; Urine Pregnancy NEGATIVE (NEGATIVE)
[2020-10-30 22:45] VITALS: BP 114/72; PULSE 78; RESP 18; TEMP 36.4; O2SAT 100
== END 2020-10-30 22:48 | disposition home or self-care (01) ==
PROVIDERS: Emergency Provider Emergency Medicine; PCP Internal Medicine
DX: Z46.6 Encounter for fitting and adjustment of urinary device (principal); R33.9 Retention of urine, unspecified; E87.6 Hypokalemia; Q05.9 Spina bifida, unspecified; I10 Essential (primary) hypertension; F17.210 Nicotine dependence, cigarettes, uncomplicated
CPT/HCPCS: 36415; 51702; 80048; 81003; 81025; 85025; 93005; 96365; 96366; 99284

== ENCOUNTER 2020-11-05 14:56 | Emergency (ER) | payer OTHER, SELFPAY ==
[2020-11-05 15:08] VITALS: BP 110/89; PULSE 87; RESP 16; TEMP 36.8; O2SAT 99; BMI 27.3
--- NOTE | 2020-11-05 15:37 | ED.FEMALEGU ---
HPI - Female Genitourinary General Chief complaint: Urogenital-Female Stated complaint: Wants lopez removed Time Seen by Provider: 11/05/20 15:12 Source: patient Mode of arrival: ambulatory Limitations: no limitations History of Present Illness HPI Narrative: 35 y/o female with history of spina bifida, HTN, depression with recent admission to [facility] [place] (10/23-10/26) for N/V/D, UTI and electrolyte abnormalities who was also seen here in the ER on 10/30 for inability to straight cath herself so a Lopez was placed with plan to follow up with Urology in 1 week, coming in asking to get Lopez removed. She is tearful and reports back pain due to the catheter. She has been straight cathing for several years, for as long as she can remember. For some reason I just couldn't do it so they put the catheter in me and I want it out. She is confident that she will be able to do it once the catheter is removed. MD elicited complaint: other (wants Lopez out) Onset (ago): day(s) (5) Location of symptoms: external genitalia and suprapubic Severity: moderate Female Urogenital Radiation: Non-Radiating Severity scale (1-10): 5 Quality of pain: burning and aching Consistency: constant Vaginal discharge: none Vaginal bleeding: none Exacerbating factors: none Relieving factors: none Associated symptoms: back pain Treatment prior to arrival: none Sexual activity: No Patient : No Related Data Home Medications Medication Instructions Recorded Confirmed trazodone 50 mg tablet 25 mg PO BEDTIME 01/31/20 10/23/20 cranberry 400 mg capsule 1 cap PO BID 10/22/20 10/22/20 methenamine hippurate 1 gram tablet 1 tab PO BID 10/22/20 10/22/20 topiramate 25 mg tablet 1 tab PO BID 10/22/20 10/22/20 Previous Rx's Medication Instructions Recorded sertraline 100 mg tablet 100 mg PO DAILY #0 tab 02/03/20 cefuroxime axetil 250 mg tablet 250 mg PO BID #8 tab 10/26/20 folic acid 1 mg tablet 1 mg PO DAILY 30 Days #30 tab 10/26/20 spironolactone 25 mg tablet 50 mg PO BID@0900,1800 30 Days tab 10/26/20 potassium chloride 20 mEq 20 meq PO DAILY #30 tab 10/30/20 tablet,extended release (K-Tab) Allergies Allergy/AdvReac Type Severity Reaction Status Date / Time No Known Allergies Allergy Verified 01/31/20 19:48 Review of Systems Constitutional: Constitutional: Denies chills, Denies fever(s) and Reports headache(s) Eyes: Eyes: Reports no additional eye complaints ENT: Reports Normal hearing present, Reports headache(s) and Denies sore throat Cardiovascular: Cardiovascular: Denies chest pain Respiratory: Respiratory: Denies cough Gastrointestinal: Gastrointestinal: Denies abdominal pain, Denies diarrhea, Denies nausea and Denies vomiting Genitourinary: Genitourinary: Denies hematuria, Reports difficulty voiding, Reports pelvic pain, Denies vaginal discharge and Denies vaginal pruritus Musculoskeletal: Musculoskeletal: Reports back pain and Reports myalgias Integumentary/Breasts: Skin/Breast: Denies lesions and Denies rash Neurologic: Reports Normal hearing present and Reports headache(s) Psychiatric: Psychiatric: Reports anxiety and Reports depression [facility] Past Medical History Medical History Anxiety and depression Hepatomegaly Hypertension Spina bifida Urinary retention Urinary retention Surgical History Previous back surgery Status post Social History Social History Household Members: Family Household Members Other:: lives with fiance and twin daughters Housing: House Do you presently have visiting nurse or other home services: No Alcohol intake: never Patient Tobacco Use Status: Current everyday Tobacco user Tobacco use type: Cigarette Cigarette Packs Per Day: 0.5 Cigarettes Per Day: 10 Second Hand Smoke Exposure: No Advance Directives: No Advance Directives Information Provided: No Patient : No service: No Current occupational status: employed Physical Exam Vital Signs: Vital Signs: Last Vital Signs Temp 98.3 F 11/05/20 15:08 Pulse 87 11/05/20 15:08 Resp 16 11/05/20 15:08 BP 110/89 11/05/20 15:08 Pulse Ox 99 11/05/20 15:08 Body Mass Index 27.3 Appearance: Alert. Oriented X3. Tearful, anxious Eyes: Pupils equal, round and reactive to light. ENT: Pharynx normal. Neck: Normal inspection. Neck supple. CVS: Normal heart rate and rhythm. Pulses normal. Respiratory: No respiratory distress. Breath sounds normal. Abdomen: Soft with mild suprapubic tenderness,. +BS x4. Lopez in place, draining yellow urine Skin: Skin warm and dry. Normal skin color. Normal skin turgor. No rashes. Extremities: No lower extremity edema. Neuro: Oriented X 3. Moves all extremities, speaks in complete sentences. Neuro: Cranial nerves: Yes Normal hearing present Course Course Course Narrative: 35 y/o female presenting to the ER requesting her Lopez be removed. She has a longstanding history of urinary retention and has been straight cathing herself since age 10. Lopez in for the last 6 days and she wants it out. it is uncomfortable. She understands the risks of possibly needing it again. She has capacity to make her down decisions. She agrees to come back to the ER if she is unsuccessful with catheterization at home. She has plenty of supplies. She is stable for discharge home. [facility] - Female Genitourinary Lab Data Labs: Lab Results 11/05/20 Range/Units 16:09 COVID-19 ([place]) Negative (Negative) COVID-19 Clin Com See Note Critical Care Time Critical Care Time Critical Care Time: No Discharge Plan Discharge Clinical Impression: Urinary retention Patient Disposition: Home, Self-Care Instructions: Chronic Urinary Retention in Women (ED) Additional Instructions: You were negative for COVID-19. Rest and stay hydrated. Take Motrin and/or Tylenol as needed for muscle aches. If you cannot self catheterize and drain your bladder in 8 hours you need to come back to the ER for evaluation. Recommend following up with Urology MARIANELA. See name and number below. Prescriptions: No Action trazodone 50 mg tablet 25 mg PO BEDTIME RF: 0 sertraline 100 mg tablet 100 mg PO DAILY Qty: 0 RF: 0 potassium chloride [K-Tab] 20 mEq tablet extended release 20 meq PO DAILY Qty: 30 RF: 0 topiramate 25 mg tablet 1 tab PO BID RF: 0 methenamine hippurate 1 gram tablet 1 tab PO BID RF: 0 cranberry 400 mg capsule 1 cap PO BID RF: 0 spironolactone 25 mg Tablet 50 mg PO BID@0900,1800 30 Days RF: 0 folic acid 1 mg Tablet 1 mg PO DAILY 30 Days Qty: 30 RF: 0 cefuroxime axetil 250 mg tablet 250 mg PO BID Qty: 8 RF: 0 Referrals: Marc Bradshaw MD [Physician] - 2 days (spina bifida w/ urinary retention)
[2020-11-05] MEDS: Ibuprofen 600 MG TABLET PO (16:20)
[2020-11-05 16:36] LABS: COVID-19 Test Negative (Negative)
== END 2020-11-05 17:02 | disposition home or self-care (01) ==
PROVIDERS: Physician Assistant; Emergency Provider Emergency Medicine; PCP Internal Medicine
DX: R33.9 Retention of urine, unspecified (principal); Z20.822 Contact with and (suspected) exposure to COVID-19; Z46.6 Encounter for fitting and adjustment of urinary device; F17.210 Nicotine dependence, cigarettes, uncomplicated
CPT/HCPCS: 36415; 87635; 99283

== ENCOUNTER 2022-01-09 08:10 | Emergency (ER) | payer OTHER, SELFPAY ==
--- NOTE | ~2022-01-09 | CT_ITS ---
EXAMINATION: CT ABDOMEN AND PELVIS WITH CONTRAST CLINICAL INFORMATION: Right flank, right lower quadrant pain. COMPARISON: 10/03/2019 and 10/23/2020 TECHNIQUE: Multidetector volumetric images were obtained from the superior aspect of the liver through the pubic symphysis following administration 85 mL of Omnipaque 350 intravenous contrast. Sagittal and coronal reformatted images were obtained on the technologist's workstation. This CT examination was performed using dose optimization techniques as appropriate, variously including the following: *Automated exposure control *Adjustment of mA and/or kV according to patient size (this includes techniques or standardized protocols for targeted exams where dose is matched to indication/reason for exam; i.e. extremities or head) *Use of iterative reconstruction technique DLP: 379 mGy-cm FINDINGS: LUNG BASES: Normal. No pulmonary consolidation or pleural effusion. LIVER: Liver has normal size and contour. Previously observed hepatic steatosis appears to have resolved. No liver mass. GALLBLADDER AND BILIARY TREE: Gallbladder is without radiopaque stones, wall thickening or pericholecystic fluid. No dilated bile ducts. PANCREAS: Normal. No edema, pancreatic ductal dilatation or mass. SPLEEN: Normal. ADRENAL GLANDS: Normal. KIDNEYS AND URETERS: Kidneys are normal in size. No renal mass, stones or perinephric edema. Moderate right hydronephrosis and hydroureter are present. No evidence of ureteral calculi. BLADDER: The urinary bladder is underdistended and its wall is diffusely thickened. Also, diffusely thickened bladder wall is observed on prior CT imaging exams. No bladder stones. BOWEL AND PERITONEUM: Stomach is unremarkable. No dilated loops of bowel. The appendix is normal. No overt bowel wall thickening or mesenteric fat stranding. No free fluid or pneumoperitoneum. ABDOMINAL WALL: Unremarkable. VASCULATURE: Normal. LYMPH NODES: No pathologic sized lymph nodes in the abdomen or pelvis. No inguinal lymphadenopathy. PELVIC VISCERA: The uterus and adnexa are unremarkable. Dominant follicle of the right ovary is 2.2 cm. SKELETAL: Unremarkable. CT/CT abdomen pelvis w IV con IMPRESSION: The urinary bladder wall is chronically thickened. Bladder wall thickening can be observed in patients with cystitis or a neurogenic bladder. There is no focal mass. The right hydroureter and moderate hydronephrosis could be secondary to constriction of the ureteral orifice by the thickened bladder wall. There are no urinary tract stones. No imaging evidence of pyelonephritis.
--- NOTE | 2022-01-09 08:29 | ED.ABDPAIN ---
HPI - Abdominal Pain General Chief Complaint: Urogenital-Female Stated Complaint: kidney infection Time Seen by Provider: 01/09/22 08:15 Source: patient Mode of arrival: ambulatory Limitations: no limitations History of Present Illness HPI narrative: Patient is a 36-year-old female who presents to the emergency department for evaluation of right sided abdominal right flank pain. Onset of symptoms was a few days ago. Pain has been constant and worsening over time. She also endorses dysuria, urinary frequency. She tried taking [id number] AZO without significant improvement in her symptoms. Additionally she is experiencing nausea and vomiting every few hours feeling feverish and having chills. She reports this to feel similar to prior kidney infections which she has experienced in the past. She reports that due to her spina bifida she self catheterizes approximately every 4 hours. Reports her last urinary tract infection to have been about 6 months ago. Related Data Home Medications Medication Instructions Recorded Confirmed trazodone 50 mg tablet 25 mg PO BEDTIME 01/31/20 10/23/20 cranberry 400 mg capsule 1 cap PO BID 10/22/20 10/22/20 methenamine hippurate 1 gram tablet 1 tab PO BID 10/22/20 10/22/20 topiramate 25 mg tablet 1 tab PO BID 10/22/20 10/22/20 Previous Rx's Medication Instructions Recorded sertraline 100 mg tablet 100 mg PO DAILY #0 tabs 02/03/20 cefuroxime axetil 250 mg tablet 250 mg PO BID #8 tabs 10/26/20 folic acid 1 mg tablet 1 mg PO DAILY 30 days #30 tabs 10/26/20 spironolactone 25 mg tablet 50 mg PO BID@0900,1800 30 days 10/26/20 potassium chloride 20 mEq 20 meq PO DAILY #30 tabs 10/30/20 tablet,extended release (K-Tab) cefuroxime axetil 250 mg tablet 250 mg PO Q12H #14 tabs 01/09/22 ondansetron 4 mg disintegrating 4 mg PO Q8H PRN nausea and 01/09/22 tablet vomiting #9 tabs Allergies Allergy/AdvReac Type Severity Reaction Status Date / Time No Known Allergies Allergy Verified 01/31/20 19:48 Review of Systems Review of Systems Constitutional : No Weight loss, No Fever, No Chills ENT/Mouth :? No sore throat, No Rhinorrhea Eyes: No Swelling, No Redness Cardiovascular : No Chest Pain, No SOB, No Edema Respiratory : No Cough, No Sputum, No Wheezing Gastrointestinal : Positive Nausea, Positive Vomiting, no Diarrhea, positive abdominal pain, No Hematochezia, No Melena Genitourinary : Positive Dysuria, positive Urinary Frequency, No Hematuria, No Urgency, positive flank pain? Musculoskeletal : No joint pain, No Myalgias, No Joint Swelling Skin : No Skin Lesions, No rash Neuro : No Weakness, No Numbness, No Dizziness, No Headache Psych : No Anxiety/Panic, No Depression Heme/Lymph: No Bruising, No Lymphadenopathy Endocrine : No Polyuria, No Polydipsia Yes all other systems are reviewed and are negative [facility] Past Medical History Attestation statement: The following information was validated with the patient. Source: old records reviewed Medical History Anxiety and depression Hepatomegaly Hypertension Spina bifida Urinary retention Urinary retention Surgical History Previous back surgery Status post Social History Social History Household Members: Family Household Members Other:: lives with fiance and twin daughters Housing: House Do you presently have visiting nurse or other home services: No Alcohol intake: never Patient Tobacco Use Status: Current everyday Tobacco user Tobacco use type: Cigarette Cigarette Packs Per Day: 0.5 Cigarettes Per Day: 10 Second Hand Smoke Exposure: No Use of substances other than those prescribed or required for medical reasons: Yes Substance Use Type: Marijuana Advance Directives: No Advance Directives Information Provided: No Patient : No service: No Current occupational status: employed Physical Exam ED Vital Signs: Vital Signs - 24 hr 01/09/22 08:33 01/09/22 15:01 Temperature 97.8 F Pulse Rate 79 77 Respiratory Rate 16 16 Blood Pressure 127/79 117/76 Pulse Oximetry 97 96 Oxygen Delivery Method Room Air Room Air BMI result Body Mass Index 27.3 Appearance: Alert.?Oriented to person, place and time. No acute distress.?Normal affect. Eyes: Pupils equal, round and reactive to light.? ENT: Pharynx normal.?? Neck: Normal inspection.? Neck supple.?? CVS: Heart sounds normal. Normal heart rate and rhythm.? Pulses normal.?? Respiratory: No respiratory distress.? Lung sounds clear to auscultation bilaterally?? Abdomen: Soft with right lower quadrant tenderness. Normoactive bowel sounds. Right CVA tenderness. Negative Rovsing sign, negative obturator's sign, negative psoas sign, no rebound tenderness Skin: Skin warm and dry.? Normal skin color.? Extremities: No lower extremity edema.? Neuro: Moves all extremities spontaneously. Sensation intact bilaterally. No focal neuro deficits. Ambulates with normal steady gait. Course Course Course Narrative: Patient is a 36-year-old female with a past medical history of anxiety, depression, hepatomegaly, hypertension, spina bifida, urinary retention who presents emergency department for evaluation of right flank pain. She appears uncomfortable at the time of examination, tearful. Abdominal exam significant for right lower quadrant tenderness in addition to right CVA tenderness. Given patient's past medical history suspect urinary tract infection versus pyelonephritis to be the most likely source for pain, although cannot completely exclude nephrolithiasis, hydronephrosis, appendicitis. Will obtain CBC to evaluate for leukocytosis/ anemia, CMP to evaluate for abnormal electrolytes /abnormal renal function/ abnormal hepatic function, urine , Urinalysis, CT of the abdomen and pelvis. Patient to receive ketorolac IV for pain, ondansetron IV for nausea. Reevaluation(s) Reevaluation #1: CBC reveals leukocytosis 15.8. CMP reveals hypokalemia at 2.8, elevated BUN at 24, creatinine 1.30, urinalysis reveals microscopic hematuria and urinary tract infection. Patient to receive potassium 20 mEq IV along with 40 mEq p.o., 1 L normal saline IV fluid, ceftriaxone 1 g IV to cover urinary tract infection, prior urine cultures have grown E coli, susceptible to ceftriaxone. CT reveals chronic lateral wall thickening, right hydroureter and moderate hydronephrosis which may be secondary to constriction of the ureteral orifice by thickened bladder wall no evidence calculi or pyelonephritis. Time: 11:14 Reevaluation #2: Patient signed out to Michelle [facility]OS pending repeat BMP. Patient tolerating oral intake. BMP has normalized, patient to be discharged home, discussed hydration, oral antibiotics, Zofran as needed for nausea, strict return precautions, worsening signs and symptoms return back to the emergency department for, outpatient follow-up with her primary care provider within 3 days. All questions were answered with patient. MDM - Abdominal Pain Medical Records Attestation: I reviewed the patient's medical records. Lab Data Attestation: I reviewed the patient's lab results. Result diagrams: 01/09/22 08:41 01/09/22 09:16 Labs: Lab Results 01/09/22 01/09/22 01/09/22 Range/Units 08:40 08:40 08:41 WBC 15.8 H (4.8-10.8) X10*3/uL RBC 5.25 (4.20-5.50) X10*6/uL Hgb 16.7 H (12.0-16.0) g/dl Hct 48.0 H (37.0-47.0) % MCV 91.4 (80.0-98.0) fL MCH 31.8 (27.0-33.0) pg MCHC 34.8 (31.0-35.0) g/dl RDW 12.7 (11.0-16.0) % Plt Count 300 (160-400) X10*3/uL MPV 9.5 (9.4-12.3) fL Immature Gran % (Auto) 0.5 H (0.0-0.4) % Neut % (Auto) 89.4 H (45-73) % Lymph % (Auto) 4.4 L (20-40) % [place] % (Auto) 4.9 (2-11) % Eos % (Auto) 0.3 (0-4) % Baso % (Auto) 0.5 (0-2) % Lymph # (Auto) 0.7 L (1.2-4.9) X10*3/uL [place] # (Auto) 0.8 (0.1-1.2) X10*3/uL Eos # (Auto) 0.0 (0.0-0.4) X10*3/uL Baso # (Auto) 0.1 (0.0-0.2) X10*3/uL Abs Immat Gran (auto) 0.08 H (0.00-0.03) X10*3/uL Absolute Neuts (auto) 14.1 H (2.0-8.3) x10*3/uL Absolute Nucleated RBC 0.000 (0.0-0.012) X10*3/uL Nucleated RBC % (auto) 0.0 (0.0-0.2) /100WBC Sodium (135-145) mmol/L Potassium (3.3-5.1) mmol/L Chloride (96-108) mmol/L Carbon Dioxide (22-29) mmol/L Anion Gap (12-20) BUN (9-16) mg/dL Creatinine (0.5-1.4) mg/dL Estim Creat Clear Calc Estimated GFR Random Glucose (60-115) mg/dL Lactic Acid (0.5-2.0) mmol/L Calcium (8.4-10.2) mg/dL Total Bilirubin (0.0-1.0) mg/dL AST (5-31) U/L ALT (0-31) U/L Alkaline Phosphatase (39-117) U/L Total Protein (6.5-8.0) g/dL Albumin (3.5-5.0) g/dL Lipase Urine Color BROWN Urine Appearance Turbid Urine pH 7.5 (5.0-9.0) Ur Specific [place] 1.015 (1.005-1.025) Urine Protein 300 (3+) H (Neg-Trace) mg/dL Urine Glucose (UA) 250 H (Negative) mg/dL Urine Ketones 15 (Negative) mg/dL Urine Blood Large (3+) H (Negative) Urine Nitrite Positive H (Negative) Ur Leukocyte Esterase Moderate (2+) H (Negative) Urine RBC 3-5 H (0-2) /HPF Urine WBC >50 H (0-5) /HPF Ur Squamous Epith Cells 0-2 (0-2) /HPF Urine Bacteria 4+ (None Seen) Hyaline Casts 0-2 (0-2) /LPF Urine Test NEGATIVE (NEGATIVE) 01/09/22 01/09/22 01/09/22 Range/Units 08:41 09:16 11:53 WBC (4.8-10.8) X10*3/uL RBC (4.20-5.50) X10*6/uL Hgb (12.0-16.0) g/dl Hct (37.0-47.0) % MCV (80.0-98.0) fL MCH (27.0-33.0) pg MCHC (31.0-35.0) g/dl RDW (11.0-16.0) % Plt Count (160-400) X10*3/uL MPV (9.4-12.3) fL Immature Gran % (Auto) (0.0-0.4) % Neut % (Auto) (45-73) % Lymph % (Auto) (20-40) % [place] % (Auto) (2-11) % Eos % (Auto) (0-4) % Baso % (Auto) (0-2) % Lymph # (Auto) (1.2-4.9) X10*3/uL [place] # (Auto) (0.1-1.2) X10*3/uL Eos # (Auto) (0.0-0.4) X10*3/uL Baso # (Auto) (0.0-0.2) X10*3/uL Abs Immat Gran (auto) (0.00-0.03) X10*3/uL Absolute Neuts (auto) (2.0-8.3) x10*3/uL Absolute Nucleated RBC (0.0-0.012) X10*3/uL Nucleated RBC % (auto) (0.0-0.2) /100WBC Sodium 135 (135-145) mmol/L Potassium 2.8 L D (3.3-5.1) mmol/L Chloride 95 L (96-108) mmol/L Carbon Dioxide 23 (22-29) mmol/L Anion Gap 20 (12-20) BUN 24 H (9-16) mg/dL Creatinine 1.30 (0.5-1.4) mg/dL Estim Creat Clear Calc 48.8 Estimated GFR 46 Random Glucose 131 H (60-115) mg/dL Lactic Acid 0.9 (0.5-2.0) mmol/L Calcium 9.3 (8.4-10.2) mg/dL Total Bilirubin 0.5 (0.0-1.0) mg/dL AST 48 H D (5-31) U/L ALT 122 H (0-31) U/L Alkaline Phosphatase 107 D (39-117) U/L Total Protein 8.5 H D (6.5-8.0) g/dL Albumin 4.9 D (3.5-5.0) g/dL Lipase Cancelled 14 Urine Color Urine Appearance Urine pH (5.0-9.0) Ur Specific [place] (1.005-1.025) Urine Protein (Neg-Trace) mg/dL Urine Glucose (UA) (Negative) mg/dL Urine Ketones (Negative) mg/dL Urine Blood (Negative) Urine Nitrite (Negative) Ur Leukocyte Esterase (Negative) Urine RBC (0-2) /HPF Urine WBC (0-5) /HPF Ur Squamous Epith Cells (0-2) /HPF Urine Bacteria (None Seen) Hyaline Casts (0-2) /LPF Urine Test (NEGATIVE) Imaging Data CT scan - abdomen: Radiologist's impression: CT/CT abdomen pelvis w IV con IMPRESSION: The urinary bladder wall is chronically thickened. Bladder wall thickening can be observed in patients with cystitis or a neurogenic bladder. There is no focal mass. The right hydroureter and moderate hydronephrosis could be secondary to constriction of the ureteral orifice by the thickened bladder wall. There are no urinary tract stones. No imaging evidence of pyelonephritis. ? Discharge Plan Discharge Clinical Impression: Urinary tract infection, Acute hypokalemia Patient Disposition: Still a Patient Instructions: Urinary Tract Infection in Women (ED), Hypokalemia (ED) Additional Instructions: You were found to have a urinary tract infection today, you have been given a new prescription for cefuroxime to take twice daily for 1 week. Take Zofran every 8 hours as needed for nausea Your potassium levels were also low, you received replacement while in the emergency department. You need to contact your primary care provider and arrange for a follow-up visit within the next 2-3 days, he should have your potassium levels repeated as well. Return to the emergency department any new or worsening symptoms or concerns. This includes but is not limited to fevers, chills, nausea persistent vomiting, inability to tolerate oral antibiotics, abdominal pain, severe worsening back/flank pain, worsening dysuria, lack of urinary output despite straight catheterization. Prescriptions: New cefuroxime axetil 250 mg tablet 250 mg PO Q12H Qty: 14 0RF ondansetron 4 mg tablet,disintegrating 4 mg PO Q8H PRN (Reason: nausea and vomiting) Qty: 9 0RF No Action trazodone 50 mg tablet 25 mg PO BEDTIME sertraline 100 mg tablet 100 mg PO DAILY Qty: 0 0RF potassium chloride [K-Tab] 20 mEq tablet extended release 20 meq PO DAILY Qty: 30 0RF topiramate 25 mg tablet 1 tab PO BID methenamine hippurate 1 gram tablet 1 tab PO BID cranberry 400 mg capsule 1 cap PO BID spironolactone 25 mg Tablet 50 mg PO BID@0900,1800 30 Days 0RF Protocol: Hold for SBP< HOLD for SBP < : 90 folic acid 1 mg Tablet 1 mg PO DAILY 30 Days Qty: 30 0RF cefuroxime axetil 250 mg tablet 250 mg PO BID Qty: 8 0RF
[2022-01-09 08:33] VITALS: BP 127/79; PULSE 79; RESP 16; TEMP 36.6; O2SAT 97; BMI 27.3
[2022-01-09 08:45] LABS: MANUAL DIFF FLAG NO
[2022-01-09 08:50] LABS: Appearance Urine Turbid; Color Urine BROWN; Glucose Urine UA 250 mg/dL (Negative); Leukocyte Esterase Urine Moderate (2+) (Negative); Nitrite Urine Positive (Negative); PH 7.5 (5.0-9.0); Specific Gravity - Urine 1.015 (1.005-1.025); UMIC TRIGGER UACC YES; Urine Blood Large (3+) (Negative); Urine Ketones 15 mg/dL (Negative); Urine Protein 300 (3+) mg/dL (Neg-Trace)
[2022-01-09 08:53] LABS: UPreg QC Valid YES; Urine Pregnancy NEGATIVE (NEGATIVE)
[2022-01-09] MEDS: Ketorolac Tromethamine 30 MG/ML VIAL IVPUSH (08:53)
[2022-01-09] MEDS: ondansetron HCL 4 MG/2 ML VIAL IVPUSH (08:54)
[2022-01-09 09:06] LABS: Basophils Absolute Auto 0.1 X10*3/uL (0.0-0.2); Basophils Percent Auto 0.5 % (0-2); Eosinophils Percent Auto 0.3 % (0-4); Hemoglobin 16.7 g/dl (12.0-16.0); Imm Gran Abs Auto 0.08 X10*3/uL (0.00-0.03); Imm Gran Pct Auto 0.5 % (0.0-0.4); Lymphocytes Absolute Auto 0.7 X10*3/uL (1.2-4.9); Lymphocytes Percent Auto 4.4 % (20-40); Mean Corpuscular HGB Conc 34.8 g/dl (31.0-35.0); Mean Corpuscular Hemoglobin 31.8 pg (27.0-33.0); Mean Corpuscular Volume 91.4 fL (80.0-98.0); Mean Platelet Volume 9.5 fL (9.4-12.3); Monocytes Absolute Auto 0.8 X10*3/uL (0.1-1.2); Monocytes Percent Auto 4.9 % (2-11); Neutrophils Absolute Auto 14.1 x10*3/uL (2.0-8.3); Neutrophils Percent Auto 89.4 % (45-73); Platelet Count 300 X10*3/uL (160-400); Red Blood Count 5.25 X10*6/uL (4.20-5.50); Red Cell Distribution Width 12.7 % (11.0-16.0); White Blood Count 15.8 X10*3/uL (4.8-10.8)
[2022-01-09 09:08] LABS: UACC Culture Trigger YES; WBC Urine >50 /HPF (0-5)
[2022-01-09 09:09] LABS: Bacteria Urine 4+ (None Seen); Hyaline Casts Urine 0-2 /LPF (0-2); Squamous Epithelial Cell Urine 0-2 /HPF (0-2)
[2022-01-09 09:53] LABS: Alanine Aminotransferase 122 U/L (0-31); Albumin Level 4.9 g/dL (3.5-5.0); Alkaline Phosphatase 107 U/L (39-117); Anion Gap 20 (12-20); Aspartate Amino Transferase 48 U/L (5-31); Bilirubin Total 0.5 mg/dL (0.0-1.0); Blood Urea Nitrogen 24 mg/dL (9-16); Calcium 9.3 mg/dL (8.4-10.2); Carbon Dioxide 23 mmol/L (22-29); Chloride 95 mmol/L (96-108); Creatinine Clr Calc Pharmacy 48.8; Estimated Glomerular Filt Rate 46; Glucose Random 131 mg/dL (60-115); Lipase 14 U/L (8-78); Potassium 2.8 mmol/L (3.3-5.1); Sodium 135 mmol/L (135-145); Total Protein 8.5 g/dL (6.5-8.0)
[2022-01-09] MEDS: iohexoL 350 MG/ML 100 ML INFUS..BTL IV (10:23)
[2022-01-09] MEDS: cefTRIAXone sodium 1 GM in 0.9 % Sodium Chloride 50 ML IV (12:08)
[2022-01-09] MEDS: 0.9 % Sodium Chloride 1,000 ML 999 ML IV (12:08)
[2022-01-09] MEDS: Potassium Chloride Packet 20 MEQ PACKET 40 MEQ PO (12:08)
[2022-01-09 12:12] LABS: Lactic Acid 0.9 mmol/L (0.5-2.0)
[2022-01-09] MEDS: Potassium Chloride/H20 10 MEQ/100 ML PIGGYBACK 100 MEQ IV ×2 (12:14→14:59)
--- NOTE | 2022-01-09 13:41 | PC.NURSE ---
pt not tolerating IV Potassium well, slowed the IV infusion to over 1.5 hr. Potassium also infusion with NS Bolus. Provider aware
[2022-01-09 15:01] VITALS: BP 117/76; PULSE 77; RESP 16; O2SAT 96
[2022-01-09 17:54] LABS: Anion Gap 16 (12-20); Blood Urea Nitrogen 20 mg/dL (9-16); Calcium 8.1 mg/dL (8.4-10.2); Carbon Dioxide 20 mmol/L (22-29); Chloride 101 mmol/L (96-108); Creatinine Clr Calc Pharmacy 72.9; Estimated Glomerular Filt Rate > 60; Glucose Random 107 mg/dL (60-115); Potassium 3.7 mmol/L (3.3-5.1); Sodium 133 mmol/L (135-145)
== END 2022-01-09 18:06 | disposition home or self-care (01) ==
PROVIDERS: Nurse Practitioner Family; Emergency Provider Emergency Medicine; PCP Internal Medicine Cardiovascular Disease
DX: N39.0 Urinary tract infection, site not specified (principal); E87.6 Hypokalemia; R10.9 Unspecified abdominal pain; I10 Essential (primary) hypertension; Q05.9 Spina bifida, unspecified; F17.210 Nicotine dependence, cigarettes, uncomplicated; Z79.899 Other long term (current) drug therapy
CPT/HCPCS: 36415; 74177; 80048; 80053; 81001; 81003; 81025; 83605; 83690; 85025; 87040; 87086; 96361; 96374; 96375; 99284; J0696; J1885; J2405; Q9967